=== PATIENT | male | born 1960 | race Caucasian/White ===

== ENCOUNTER 2019-09-26 09:31 | Emergency (ER) | payer BC, SELFPAY ==
[2019-09-26 09:35] VITALS: BP 163/103; PULSE 60; RESP 20; TEMP 36.6; O2SAT 97
[2019-09-26] MEDS: TETRACAINE HCL 0.5% OPHTH SOLN 4 ML BTL 1 DROP LEFT EYE (09:40)
--- NOTE | 2019-09-26 10:01 | ED.EYEPROB ---
HPI - Eye Problem General Chief complaint: Eye Problems Stated complaint: Scratch on left eye Source: patient Mode of arrival: ambulatory Limitations: no limitations History of Present Illness HPI Narrative: This 59-year-old male presents with a pain and burning in his left eye after his pet dog inadvertently scratched his left eye causing pain with some blurry vision and redness in the conjunctiva. chief complaint: eye pain, eye redness and eye injury Onset (ago): hour(s) Onset description: sudden Duration: constant Location: left eye Eye Symptoms: burning, redness and pain Place: home Mechanism: direct trauma (dog scratched his eye) Severity: mild If Pain, Quality: burning Related Data Home Medications Medication Instructions Recorded Confirmed amlodipine 10 mg PO DAILY 09/26/19 09/26/19 lisinopril 20 mg PO DAILY 09/26/19 09/26/19 metoprolol succinate 100 mg PO DAILY 09/26/19 09/26/19 potassium chloride 20 meq PO DAILY 09/26/19 09/26/19 Allergies Allergy/AdvReac Type Severity Reaction Status Date / Time No Known Allergies Allergy Verified 09/26/19 10:01 Review of Systems Review of Systems: All systems reviewed & are unremarkable except as noted in HPI and below PMFSH Past Medical History Medical History HLD (hyperlipidemia) HTN (hypertension) Exam Const: General: no acute distress Nutritional Appearance: well nourished Orientation/consciousness: patient oriented x3 HENMT: Head: normal to inspection Eyes: Conjunctivae: conjunctival abnormality ( injected and red) left Pupils: Equal, round and reactive pupils present Other: left corneal abrasion and scratch Neck: Neck: normal visual inspection and no lymphadenopathy Chest: Chest palpation & inspection: normal inspection of the chest and abnormal inspection of the chest Resp: Effort & Inspection: normal respiratory effort Cardio: Rate: regular rate Rhythm: regular rhythm GI: Auscultation: normal bowel sounds : Male General Exam: Yes normal external exam Back/Spine/Pelvis: Back: no CVA tenderness Skin: General skin exam: normal color Rashes: no rashes Neuro: General: patient oriented x3, moves all extremities and no meningeal signs Extrem: General: normal to inspection Psych: Appearance: grossly normal Mental Status: mental status grossly normal Thought content: Yes Normal thought content present Critical Care Time Critical Care Time Critical Care Time: No Discharge Plan Discharge Clinical Impression: Abrasion, corneal Qualifiers: Encounter type: initial encounter Laterality: left Qualified Code(s): S05.02XA - Injury of conjunctiva and corneal abrasion without foreign body, left eye, initial encounter Patient Disposition: Home, Self-Care Condition: Stable Instructions: Antibiotic Form, Corneal Abrasion (ED) Additional Instructions: follow-up with security sales manager within 1 week for further evaluation and treatment. Take medicine as prescribed. Prescriptions: New neomycin-polymyxin B-dexameth [Maxitrol] 3.5mg/mL-10,000 unit/mL-0.1 % drops,suspension 1 drop EACH EYE Q6H 7 Days Qty: 5 RF: 0 oxycodone-acetaminophen [Percocet] 5-325 mg tablet 1 tablet PO Q6H PRN (Reason: pain) Qty: 20 RF: 0 No Action lisinopril 20 mg tablet 20 mg PO DAILY RF: 0 metoprolol succinate 100 mg tablet extended release 24 hr 100 mg PO DAILY RF: 0 potassium chloride 20 mEq tablet,ER particles/crystals 20 meq PO DAILY RF: 0 amlodipine 10 mg tablet 10 mg PO DAILY RF: 0 Follow-up/Referrals: PHYSICIAN NOT ON STAFF,NONSTAFF [Primary Care Provider] - Time of Disposition: 10:07
[2019-09-26 10:11] VITALS: BP 150/96; PULSE 60; RESP 20; TEMP 36.6; O2SAT 97
[2019-09-26] MEDS: NEOMYCIN/POLYMYXIN/DEXAMETH OP SUSP 5 ML BTL 2 DROP LEFT EYE (10:17)
== END 2019-09-26 10:19 | disposition home or self-care (01) ==
PROVIDERS: Emergency Provider Emergency Medicine
DX: S05.02XA Injury of conjunctiva and corneal abrasion without foreign body, left eye, initial encounter (principal); X58.XXXA Exposure to other specified factors, initial encounter
CPT/HCPCS: 99283; A9270

== ENCOUNTER 2020-12-29 12:07 | Outpatient (CLI) | payer BC, SELFPAY ==
--- NOTE | ~2020-12-29 | US_ITS ---
EXAMINATION: US venous doppler [facility] DATE: 12/29/2020 12:43 INDICATION: Left leg pain and swelling TECHNIQUE: Jack scale images without and with compression and Doppler images of the left lower extrem ity veins were obtained. COMPARISON: None FINDINGS: The left common femoral vein, profunda femoral vein, femoral vein, popliteal vein, peroneal trunk, posterior tibial veins, and greater saphenous vein are patent. IMPRESSION: 1. Patent left lower extremity veins. No evidence of deep venous thrombosis. Reviewed, dictated and finalized at location A.
== END 2020-12-29 12:08 | disposition home or self-care (01) ==
LOC: CHSIMG 12:11
PROVIDERS: PCP Family Medicine; Visit Provider Family Medicine
DX: I74.9 Embolism and thrombosis of unspecified artery (principal)
CPT/HCPCS: 93971

== ENCOUNTER 2021-01-08 09:58 | Outpatient (RCR) | payer BC, SELFPAY ==
--- NOTE | 2021-01-08 12:25 | PTOPEVAL ---
Thank you for referring Franklyn Mccormack to [facility].? The patient is scheduled to be seen for therapy? ____x/week for ___ weeks. Please review, sign, date and return this plan of care JARAD. I agree with and certify that the following plan of care is medically necessary. Referring Physician Date Admitting Provider: Attending Provider: Isidoro Perez MD Referring Provider: *PT Outpatient Evaluation Start: 01/08/21 10:00 Freq: Status: Active Protocol: Document 01/08/21 10:00 ACR (Rec: 01/08/21 12:07 ACR [id number]) Therapy Assessment Status Assessment Status Assessment Status Evaluation Evaluation Information Problem Diagnosis L leg pain Onset 12/20/20 Subjective Information Patient states that he started Query Text:As Reported By Patient/ have leg pain about 2 and a Family half weeks ago. He has a physical job where he is lifting a lot and thinks that is a cause from it. 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 He went and got a doppler which was negative. He states the pain starts in the back of the knee and works its way down the leg to the foot which causes it to be numb. He states that the pain wakes him up and it gets to the point where he cannot put pressure through the leg. The patient states the most difficult activities are steps , getting in and out of the car, and a lot of his daily activities. 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
== END 2021-01-16 16:16 | disposition home or self-care (01) ==
LOC: CHSPT 09:58
PROVIDERS: PCP Family Medicine; Visit Provider Family Medicine
DX: M79.669 Pain in unspecified lower leg (principal)
CPT/HCPCS: 97014; 97110; 97140; 97161; G0283

== ENCOUNTER 2023-01-23 10:27 | Outpatient (CLI) | payer OTHER, BC, SELFPAY ==
--- NOTE | ~2023-01-23 | XR_ITS ---
Right Knee Technique: AP, lateral, and sunrise views were obtained. Clinical History: Pain Findings: No fracture or dislocation is seen. Osseous alignment is anatomic. There is minimal spurrin g at the patella and intercondylar notch. Soft tissues are unremarkable. No joint effusion is seen. Impression: Minimal degenerative spurring, as above. Reviewed, dictated and finalized at location M. Impression: Minimal degenerative spurring, as above.
== END 2023-01-23 10:28 | disposition home or self-care (01) ==
PROVIDERS: PCP Family Medicine; Visit Provider Family Medicine
DX: M76.891 Other specified enthesopathies of right lower limb, excluding foot (principal)
CPT/HCPCS: 73562

== ENCOUNTER 2023-02-08 09:00 | Outpatient (CLI) | payer OTHER, BC, SELFPAY ==
--- NOTE | ~2023-02-08 | MR_ITS ---
MRI of the right knee Clinical history: Meniscus tear Technique: Coronal proton density and proton density-weighted images, sagittal proton-density and T2 fat-sat images, and axial proton-density fat-saturated images were acquired. Findings: Anterior and posterior cruciate ligaments are intact. Medial collateral ligament and the la teral collateral ligament complex are intact. Popliteus tendon is intact. There is horizontal tear predominantly involving the body segment of the medial meniscus, extending i nto the posterior horn. No definite lateral meniscal tear seen. There is high-grade chondromalacia at the medial joint line with subchondral reactive marrow edema. A rticular cartilage in the lateral compartment is relatively well-preserved. There is extensive high-g rade chondromalacia of the patellofemoral compartment. Small tricompartmental osteophytes are present . Extensor mechanism is intact. Small joint effusion is present. No Luna's cyst. Impression: Horizontal tear of the posterior horn and body of medial meniscus. Mild to moderate tricompartmental osteoarthritis. Small joint effusion. Reviewed, dictated and finalized at [facility]. Impression: Horizontal tear of the posterior horn and body of medial meniscus. Mild to moderate tricompartmental osteoarthritis. Small joint effusion.
== END 2023-02-08 09:01 | disposition home or self-care (01) ==
LOC: CHSIMG 09:01
PROVIDERS: PCP Family Medicine; Visit Provider Family Medicine
DX: S83.241A Other tear of medial meniscus, current injury, right knee, initial encounter (principal); M17.11 Unilateral primary osteoarthritis, right knee; M25.461 Effusion, right knee
CPT/HCPCS: 73721

== ENCOUNTER 2023-06-02 10:48 | Outpatient (CLI) | payer OTHER, SELFPAY ==
[2023-06-02 11:14] LABS: Basophils Absolute Auto 0.06 K/mm3 (0.00-0.10); Basophils Percent Auto 0.7 % (0.0-1.0); Eosinophils Percent Auto 2.3 % (1.0-6.0); Hematocrit 43.6 % (37.0-46.0); Hemoglobin 15.1 g/dL (12.4-15.3); Immature Granulocyte Percent A 1.2 % (0.0-0.0); Lymphocytes Absolute Auto 2.53 K/mm3 (1.10-4.50); Lymphocytes Percent Auto 29.5 % (18.0-42.0); Mean Corpuscular HGB Conc 34.6 g/dL (32.0-36.0); Mean Corpuscular Hemoglobin 30.2 pg (27.0-31.0); Mean Corpuscular Volume 87.2 fL (78.0-102.0); Mean Platelet Volume 10.1 fl (8.7-11.0); Monocytes Absolute Auto 0.85 K/mm3 (0.10-0.90); Monocytes Percent Auto 9.9 % (2.0-11.0); Neutrophils Absolute Auto 4.8 K/mm3 (1.7-7.2); Neutrophils Percent Auto 56.4 % (50.0-70.0); Platelet Count Result 163 K/mm3 (150-420); Red Cell Distribution Width 12.8 % (11.6-14.4); White Blood Count 8.6 K/mm3 (4.8-10.8)
[2023-06-02 12:30] LABS: Alanine Aminotransferase 42 U/L (16-63); Albumin Level 3.7 g/dL (3.4-5.0); Alkaline Phosphatase 108 U/L (46-116); Anion Gap 12 mmol/L (8-16); Aspartate Amino Transferase 20 U/L (15-37); Bilirubin,Total 0.7 mg/dL (0.00-1.00); Blood Urea Nitrogen 20 mg/dL (7-18); Calcium 9.2 mg/dL (8.5-10.1); Carbon Dioxide 27 mmol/L (21-32); Chloride 104 mmol/L (98-108); Cholesterol 184 mg/dL (0-200); Estimated Glomerular Filt Rate > 60; Folic Acid 13.3 ng/mL (8.6->20); Glucose 135 mg/dL (70-99); HDL Direct 47 mg/dL (40-60); LDL Cholesterol Calculated 109 mg/dL (<130); Osmolality Calculated 300 mOsm/kg (285-295); Potassium 3.1 mmol/L (3.5-5.1); Sodium 143 mmol/L (136-145); Total Protein 7.4 g/dL (6.4-8.2); Triglycerides 140 mg/dL (0-150); Vitamin B12 338 pg/mL (193-986)
[2023-06-02 12:48] LABS: Thyroid Stimulating Hormone Reflex 2.96 u/IU/mL (0.36-3.74)
== END 2023-06-02 10:49 | disposition home or self-care (01) ==
LOC: CHSLAB 10:54
PROVIDERS: PCP Family Medicine; Visit Provider Family Medicine
DX: E78.5 Hyperlipidemia, unspecified (principal); E11.9 Type 2 diabetes mellitus without complications; E53.8 Deficiency of other specified B group vitamins; I10 Essential (primary) hypertension
CPT/HCPCS: 36415; 80053; 80061; 82607; 82746; 83036; 84443; 85025

== ENCOUNTER 2023-06-04 12:59 | Outpatient (CLI) | payer OTHER, MEDICARE, SELFPAY ==
--- NOTE | 2023-06-04 13:09 | ECG_ITS ---
Measurements Intervals [place] Rate: 74 P: 65 VA: 194 QRS: 64 QRSD: 163 T: 23 QT: 386 QTc: 431 Interpretive Statements SINUS RHYTHM RIGHT BUNDLE BRANCH BLOCK BASELINE WANDER- II, III, AVF ABNORMAL ECG NO PREVIOUS ECG AVAILABLE FOR COMPARISON Electronically Signed On 06-04-2023 14:03:26 BIODIESEL ENGINE SPECIALIST by Pk Ignacio D.O.
== END 2023-06-04 13:00 | disposition home or self-care (01) ==
LOC: CHSLAB 13:05
PROVIDERS: PCP Family Medicine; Visit Provider Anesthesiology
DX: Z01.818 Encounter for other preprocedural examination (principal); I10 Essential (primary) hypertension; I45.10 Unspecified right bundle-branch block; R94.31 Abnormal electrocardiogram [ECG] [EKG]
CPT/HCPCS: 93005

== ENCOUNTER 2023-06-19 02:06 | Day surgery (SDC) | payer OTHER, SELFPAY ==
[2023-06-02 14:57] VITALS: BMI 30.2
--- NOTE | 2023-06-02 15:06 | PC.NURSE ---
Addendum entered by Emilie Locke RN 06/11/23 14:16: PT TO ARRIVE AT 0800 ON 06/19/23 FOR SURGERY AT 1000. Original Note: Report to the Outpatient Waiting Room, entrance under the green pavilion located off [facility], at time 0830 on date 06/05/23. Planned Procedure Time: 1030. Time changes happen often and if your time is changed the preop area will call you the afternoon before. - You and your visitor will be asked to self-screen and do not enter if you have any COVID symptoms. - A mask is optional within the hospital at this time. Patients may have clear liquids (water, carbonated beverages, clear teas, apple juice) until 3 hours prior to surgery with a maximum of 20 ounces. - No food from midnight until time of surgery Take the following medications with a SIP of water the morning of surgery: AMLODIPINE, METOPROLOL, SERTRALINE DO NOT STOP ANY OF YOUR OTHER PRESCRIPTION MEDICATIONS PRIOR TO SURGERY ?EXCEPT THE FOLLOWING Medications to discontinue per physician: N/A Date to take last dose: N/A Please no make-up, nail tajik, hairspray, perfume, deodorant, or body powder the day of surgery. No jewelry (including any body piercings) or valuables the day of surgery, leave them at home. Please take a shower or bath the night before, or the morning of, surgery with an antibacterial soap. Wear comfortable, loose fitting clothing. - Jewelry must be removed prior to entering the operating room. Rings and piercings that are not removed may be cut off. - The hospital will not accept responsibility for valuables. - Please leave all valuables, including medications, at home the day of surgery. If you are going home after surgery, a licensed regional otr company driver must drive you home. - NO public transportation without another adult if you receive anesthesia. - We recommend that an adult stay with you for 24 hours following discharge. - We also recommend that you do not drive, make important decision, drink alcoholic beverages, or take any drugs that were not prescribed by your health care provider for at least 24 hours after your discharge time. Follow any additional instructions given to you from your surgeon. If you or anyone in your household have experienced Covid symptoms in the past week, please notify your surgeon or the nurse liaison at the phone number below for possible testing. Telephone instructions given to PT - MICAH NOBLE and asked if any additional questions and then verbalized understanding. Patient advised to call surgeon office or pre surgery nurse liaison [phone] if any additional questions.
--- NOTE | 2023-06-03 12:27 | PM.IMHP ---
H&P: HPI History of Present Illness Date/Time: 06/03/23 12:27 Chief Complaint: Medial meniscal tear right knee. Narrative: Patient has catching locking and pain over the medial joint line, symptoms suggesting room meniscal tearing. He has a positive MRI scan like to proceed with arthroscopic intervention. Review of Systems Musculoskeletal: Musculoskeletal: Reports arthralgias and Reports joint swelling PMFSH Past Medical History Medical History HLD (hyperlipidemia) HTN (hypertension) Surgical History Surgical History History of cholecystectomy Family History Family History Father Leukemia Mother Neuropathy Hypotension Social History Social History (Updated 03/10/23 @ 09:22 by Fatmata Odell CMA) Smoking status: Never smoker Alcohol intake: current Alcohol use details: 3/MONTH Substance use: never Substance use type: does not use Lack of Transportation: No Lack of Food: Never True Current Housing: Decline to Answer Concerned About Future Housing: Decline to Answer Difficulty Paying Gas/Electric Bills: YES Difficulty Paying for Meds: No Currently Unemployed: No Education: High School Diploma/GED Difficulty w/ Childcare or Family Care: No Living arrangements: alone Occupation/Education: occupation Additional occupation/education comments: [employer]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 Gender identity (if verbalized by the patient): Male Spiritual care concerns: No Meds Home Medications and Allergies Home Medications Medication Instructions Recorded Confirmed Type amlodipine 10 mg tablet 10 mg PO DAILY #30 tabs 03/11/23 06/02/23 Rx lisinopril 20 mg tablet 10 mg PO DAILY #30 tabs 03/11/23 06/02/23 Rx metoprolol succinate 100 mg See Rx Instructions .Route 05/20/23 06/02/23 Rx tablet,extended release 24 hr .COMPLEX #90 tabs sertraline 50 mg tablet 50 mg PO DAILY #90 tabs 06/02/23 06/02/23 Rx Allergies Allergy/AdvReac Type Severity Reaction Status Date / Time No Known Allergies Allergy Verified 06/02/23 14:57 Exam Narrative: On exam he has got a positive Bret's test he is tender over the joint line has pain to palpation manipulation. Neurologically he is grossly intact. He has mechanical catching. He walks with a mildly antalgic gait. Const: General: no acute distress Eyes: General: appearance normal, both eyes and all related structures Neck: Neck: supple Resp: Effort & Inspection: normal respiratory effort Cardio: Rate: regular rate Rhythm: regular rhythm Radiology Reports: Comments: Patient: Franklyn Mccormack : 1960 MR#: [id number] Age/Sex: 62 / M Loc: [facility]? ? ADM Date: 02/08/23Attending Dr: Don Jones D.O. Ordering Physician: Don Jones DO Date of Service: 02/08/23 Procedure(s): MR knee RT wo con Accession Number(s): [id number] cc: Don Jones DO~ MRI of the right knee Clinical history: Meniscus tear Technique: Coronal proton density and proton density-weighted images, sagittal proton-density and T2 fat-sat images, and axial proton-density fat-saturated images were acquired. Findings: Anterior and posterior cruciate ligaments are intact. Medial collateral ligament and the lateral collateral ligament complex are intact. Popliteus tendon is intact. There is horizontal tear predominantly involving the body segment of the medial meniscus, extending into the posterior horn. No definite lateral meniscal tear seen. There is high-grade chondromalacia at the medial joint line with subchondral reactive marrow edema. Articular cartilage in the lateral compartment is relatively well-preserved. There is extensive high-grade chondromalacia of the patellofemoral compartment. Small tricompartmental os
--- NOTE | 2023-06-18 13:58 | P.PNAN_ITS ---
Anes - Initial Pre Proc Eval Procedure: Operation Date: 06/19/23 07:30 Proposed Procedures p Right Knee Arthroscopy with Partial Meniscectomy - Jaspal Singh MD Date/Time: 06/18/23 13:58 Surgeon: Jaspal Singh MD Pre Op Diagnosis: right knee medial meniscal tear Patient Data Age: 63 Gender: M Height: 1.75 m Weight: 93 kg Allergies Allergy/AdvReac Type Severity Reaction Status Date / Time No Known Allergies Allergy Verified 06/19/23 06:05 Home Medications Medication Instructions Recorded Confirmed Type amlodipine 10 mg tablet 10 mg PO DAILY #30 tabs 03/11/23 06/11/23 Rx lisinopril 20 mg tablet 10 mg PO DAILY #30 tabs 03/11/23 06/11/23 Rx metoprolol succinate 100 mg See Rx Instructions .Route 05/20/23 06/11/23 Rx tablet,extended release 24 hr .COMPLEX #90 tabs Patient hx anesthesia problems: none Family hx anesthesia problems: none Results Review: All pre-operative results and documents have been reviewed as part of the pre- operative evaluation. [facility] Past Medical History Medical History (Updated 06/18/23 @ 13:59 by Jose Garrett DO) ESTHER (generalized anxiety disorder) HLD (hyperlipidemia) HTN (hypertension) Right bundle branch block (RBBB) Surgical History Surgical History History of cholecystectomy Family History Family History Father Leukemia Mother Neuropathy Hypotension Social History Social History (Updated 03/10/23 @ 09:22 by Fatmata Odell CMA) Smoking status: Never smoker Alcohol intake: current Alcohol use details: 3/MONTH Substance use: never Substance use type: does not use Lack of Transportation: No Lack of Food: Never True Current Housing: Decline to Answer Concerned About Future Housing: Decline to Answer Difficulty Paying Gas/Electric Bills: YES Difficulty Paying for Meds: No Currently Unemployed: No Education: High School Diploma/GED Difficulty w/ Childcare or Family Care: No Living arrangements: alone Occupation/Education: occupation Additional occupation/education comments: [employer]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 Informed Consent: The patient's anesthetic plan and its attendant risks and benefits were discussed with the patient/family/POA. Questions were solicited and answers provided to the satisfaction of the patient/family/POA.
[2023-06-19] VITALS (9 sets, daily range): BP systolic 93–169; BP diastolic 59–107; PULSE 48–79; RESP 13–18; TEMP 36.8–37; O2SAT 94–98
[2023-06-19] MEDS: ACETAMINOPHEN 500 MG TABLET 1000 MG PO (06:08)
[2023-06-19] MEDS: LACTATED RINGERS 1,000 ML 30 ML IV CONT ×2 (06:51→08:21)
[2023-06-19] MEDS: KETOROLAC 15 MG/ML VIAL (*BKC) IV PUSH (06:53)
--- NOTE | 2023-06-19 07:13 | WPDHPUPDATE1 ---
History and Physical Update Update Date/Time: 06/19/23 07:13 History and Physical has been reviewed, including an updated exam of the patient. There are NO changes in the patient's condition. Risks, benefits, and alternatives have been discussed and questions answered. Patient agrees to proceed with procedure.
[2023-06-19] MEDS: ceFAZolin 2 GM/D5W 50 ML 2 GM/50 ML BAG IVPB (07:27)
[2023-06-19] MEDS: LIDO 1%/EPINEPHRINE 1:100,000 50 ML VIAL 30 ML INFILTRATE (07:50)
--- NOTE | 2023-06-19 08:11 | W.PM.PROC2 ---
Procedure Note - Detailed Date of Procedure 06/19/23 Pre-op Diagnosis RIGHT knee medial meniscal tear Post-op Diagnosis Same Procedure Performed RIGHT knee arthroscopy with partial meniscetomy Surgeon Jaspal Singh MD Anesthesia General Indications Pain and catching Description of Procedure Patient brought to operating room # 8. An anesthetic was administered. The knee was steriley prepped and draped in the usual manner. Standard portals were used. Superior medial portal was used for the outflow cannula, inferior lateral portal was used for the scope, inferior medial portal was used for the instruments. Arthroscopy was performed, the patellar femoral joint degenerative changes. The medial compartment showed a complex tear. Grade 3 changes noted in the medial compartment. The lateral compartment showed fraying. The ACL was intact. Using baskets and nader the meniscal tear was trimmed back to a stable base so the nothing further could be pulled into the joint. Any loose or delaminated fragments were gently trimmed to a stable base. At this point the instruments were withdrawn, sutures placed and patient left the operating room in satisfactory condition. Estimated Blood Loss 10 Drains No Packing No Pathology None sent Complications No immediate complications Condition Stable Disposition PACU [facility] Billing Surgery - Charge Forward: Surgery Billing ([id number] Arthroscopy and partial menisectomy)
[2023-06-19] MEDS: oxyCODONE HCL (*CRX) 5 MG TAB IR PO (09:58)
== END 2023-06-19 10:27 | disposition home or self-care (01) ==
PROVIDERS: PCP Family Medicine; Visit Provider Orthopaedic Surgery
PROC: (CPT 29870; principal; 2023-06-19 07:30)
DX: S83.231A Complex tear of medial meniscus, current injury, right knee, initial encounter (principal); X58.XXXA Exposure to other specified factors, initial encounter; M17.11 Unilateral primary osteoarthritis, right knee; I10 Essential (primary) hypertension; E78.5 Hyperlipidemia, unspecified; E66.9 Obesity, unspecified; Z68.30 Body mass index [BMI] 30.0-30.9, adult
CPT/HCPCS: 29881; A9270; J0690; J1100; J1170; J1885; J2250; J2371; J2405; J2704; J3010; J7120

== ENCOUNTER 2023-07-10 14:30 | Outpatient (RCR) | payer OTHER, SELFPAY ==
--- NOTE | 2023-07-10 15:41 | OPREHPOC ---
Outpatient Therapy Plan of Care This is a Multidisciplinary Plan of Care that may contain components documented by all disciplines (PT, OT, and ST.) PT Problem 1 PT Problem #1 Knowledge Deficit PT Goal 1 Goal The patient will independent in a home exercise program. Target Visit 4 PT Problem 2 PT Problem #2 Pain PT Goal 1 Goal The patient will report no greater than 5/10 right knee pain with ambulation. Target Visit 6 PT Goal 2 Goal The patient will report no greater than 2/10 right knee pain with all daily activities. Target Visit 24 PT Problem 3 PT Problem #3 Impaired Range of Motion PT Goal 1 Goal The patient will demonstrate right knee AROM of 0- 120 degrees to improve gait. Target Visit 6 PT Problem 4 PT Problem #4 Impaired Gait PT Goal 1 Goal The patient will ambulate 1,000 feet with a non- antalgic gait pattern and no AD. Target Visit 12 PT Problem 5 PT Problem #5 Impaired Functional Mobil PT Goal 1 Goal The patient will have 25% or less self perceived disability per the LEFS. The patient will lift 30# from floor to waist to return previous job capabilities. Target Visit 24
--- NOTE | 2023-07-10 15:41 | PTOPEVAL1 ---
Assessment and note entered by Dana Maher, PT Evaluation Information Assessment Status Evaluation Diagnosis s/p R knee arthroscopy Onset 06/19/23 Subjective Information Franklyn Mccormack reports he had right knee surgery on 06/19/23. He had a meniscus tear and it was trimmed. He used crutches for a couple weeks after surgery but was weight bearing as tolerated. He injured his knee while working on 12/09/22. He was carrying equipment up stairs and when he got to the top of the stairs he could not put weight on it. He c/o swelling and warmth around the knee. He notes increased pain when he stands up from sitting, with walking, and bending the knee. He has increased stiffness in the knee in the morning after being in bed all night. He is using advil for pain relief and he is using ice and elevation for swelling. He works for [employer] and has been off work since 02/18/23. 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 He has a neoprene knee brace he wears when he leaves the house. He was not instructed by his surgeon to wear it. Reported Pain Level Pain Score 8: Self Report Assessment PT Clinical Summary Franklyn Mccormack presents 3 weeks s/p right knee arthroscopy for a menisectomy. He injured the knee while working on 12/10/23. He is reporting pain, swelling, and warmth in the right knee that is worse with bending his right knee, standing up from sitting, and walking. He is currently not working for [employer] and has been off work since 02/18/23. He objectively demonstrates right knee edema, decreased right knee AROM, decreased right knee and hip strength, impaired gait, and impaired balance. He will benefit from skilled PT to address these limitations. Plan of Care Interventions Electrical Stimulation,Hot Pack/Cold Pack, Intermittent Compression,Manual Therapy,Neuro Re- education,Patient/Caregiver Educati,Therapeutic Activities,Therapeutic Exercise PT Services Indicated Yes Treatment Frequency and 3 times a week for 12 visits Duration These treatments will address the objective and functional deficits as defined above. The patient will be advanced safely and appropriately in order for the patient to progress towards his/her prior level of function. Additional exercises will be introduced and as well as a comprehensive home exercise program upon discharge, if needed, ?to ensure carryover of functional gains achieved in the clinic. This
--- NOTE | 2023-07-29 14:40 | OPREHPOC ---
Outpatient Therapy Plan of Care This is a Multidisciplinary Plan of Care that may contain components documented by all disciplines (PT, OT, and ST.) PT Problem 1 PT Problem #1 Knowledge Deficit PT Goal 1 Goal The patient will independent in a home exercise program. Target Visit 24 Progress Not Met Comment continue PT Problem 2 PT Problem #2 Pain PT Goal 1 Goal The patient will report no greater than 5/10 right knee pain with ambulation. Target Visit 18 Progress Not Met Comment continue PT Goal 2 Goal The patient will report no greater than 2/10 right knee pain with all daily activities. Target Visit 24 Progress Not Met Comment continue PT Problem 3 PT Problem #3 Impaired Range of Motion PT Goal 1 Goal The patient will demonstrate right knee AROM of 0- 120 degrees to improve gait. Target Visit 18 Progress Not Met Comment Continue PT Problem 4 PT Problem #4 Impaired Gait PT Goal 1 Goal The patient will ambulate 1,000 feet with a non- antalgic gait pattern and no AD. Target Visit 24 Progress Not Met Comment continue PT Problem 5 PT Problem #5 Impaired Functional Mobil PT Goal 1 Goal The patient will have 25% or less self perceived disability per the LEFS. -not met The patient will lift 30# from floor to waist to return previous job capabilities. -not met Target Visit 24 Progress Not Met Comment continue
--- NOTE | 2023-07-29 14:41 | PTOPPROG ---
Assessment and note entered by Dana Maher, PT Evaluation Information Assessment Status Progress Diagnosis s/p R knee arthroscopy Onset 06/19/23 Subjective Information Franklyn Mccormack reports that his R knee is still very painful. He notes pain along the inner side of the knee that is stabbing and pain above the kneecap as well. He c/o throbbing around the right knee and pain is waking him at night. He continues to have difficulty with walking and stairs. He is using 500 mg Tylenol for pain control because he can not take pain medication with Vicodin. Assessment PT Clinical Summary Franklyn Mccormack has completed 9 skilled PT visits following a right knee arthroscopy performed on . He is reporting continued throbbing and sharp pains in the right knee that wake him at night and make walking difficult. He objectively demonstrates improved right knee passive and active ROM. He continues to demonstrate right knee edema, impaired gait, decreased right knee AROM, and decreased right knee/hip strength. He will continue to benefit from skilled PT to further address ongoing limitations. Plan of Care Interventions Hot Pack/Cold Pack,Intermittent Compression, Patient/Caregiver Educati,Therapeutic Activities, Therapeutic Exercise PT Services Indicated Yes Treatment Frequency and 3 times a week for 12 visits Duration These treatments will address the objective and functional deficits as defined above. The patient will be advanced safely and appropriately in order for the patient to progress towards his/her prior level of function. Additional exercises will be introduced and as well as a comprehensive home exercise program upon discharge, if needed, ?to ensure carryover of functional gains achieved in the clinic. This treatment plan has been reviewed and agreement upon by the patient.
--- NOTE | 2023-08-19 11:21 | OPREHPOC ---
Outpatient Therapy Plan of Care This is a Multidisciplinary Plan of Care that may contain components documented by all disciplines (PT, OT, and ST.) PT Problem 1 PT Problem #1 Knowledge Deficit PT Goal 1 Goal The patient will independent in a home exercise program. Target Visit 24 Progress Met Comment . PT Problem 2 PT Problem #2 Pain PT Goal 1 Goal The patient will report no greater than 5/10 right knee pain with ambulation. Target Visit 24 Progress Not Met Comment continue PT Goal 2 Goal The patient will report no greater than 2/10 right knee pain with all daily activities. Target Visit 24 Progress Not Met Comment continue PT Problem 3 PT Problem #3 Impaired Range of Motion PT Goal 1 Goal The patient will demonstrate right knee AROM of 0- 120 degrees to improve gait. Target Visit 24 Progress Not Met Comment Continue PT Problem 4 PT Problem #4 Impaired Gait PT Goal 1 Goal The patient will ambulate 1,000 feet with a non- antalgic gait pattern and no AD. Target Visit 24 Progress Not Met Comment continue PT Problem 5 PT Problem #5 Impaired Functional Mobil PT Goal 1 Goal The patient will have 25% or less self perceived disability per the LEFS. The patient will lift 30# from floor to waist to return previous job capabilities. Target Visit 24 Progress Not Met Comment continue
--- NOTE | 2023-08-19 11:22 | PTOPPROG ---
Assessment and note entered by JT File, PT Evaluation Information Assessment Status Progress Diagnosis s/p R knee arthroscopy Onset 06/19/23 Subjective Information patient reports prior to surgery her was unable to stand on the R LE. since surgery he has been able to stand and walk, and reports it has gotten a bit better. however, he reports the pain is still fairly high and is located to the inside of the R knee. he reports he had an injection 2 weeks ago. he reports he felt great after this injection, but the pain is already back. he reports his pain is increased with standing activities and walking. 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 he continues to have significant pain in the R knee, and poor ambulation mechanics. he has improved in R knee rom and strength, but still lacks achievement of goals for both. he is progressing, but is unable to perform normal ambulation or prior work related duties. patient would benefit from continued skilled PT to address his continued objective/functional deficits to be able to return to prior level work performance and quality of life. Plan of Care Interventions Gait Training,Hot Pack/Cold Pack,Intermittent Compression,Manual Therapy,Neuro Re-education, Patient/Caregiver Educati,Therapeutic Activities, Therapeutic Exercise PT Services Indicated Yes Treatment Frequency and continue skilled PT 3x weekly for 6 more visits Duration from today (24 total) These treatments will address the objective and functional deficits as defined above. The patient will be advanced safely and appropriately in order for the patient to progress towards his/her prior level of function. Additional exercises will be introduced and as well as a comprehensive home exercise program upon discharge, if needed, ?to ensure carryover of functional gains achieved in the clinic. This treatment plan has been reviewed and agreement upon by the patient.
--- NOTE | 2023-09-01 10:20 | PCPTNOTE ---
pt cancelled. no reason given
--- NOTE | 2023-09-02 14:07 | PCPTNOTE ---
pt cancelled. no reason given
--- NOTE | 2023-09-09 13:35 | OPREHPOC ---
Outpatient Therapy Plan of Care This is a Multidisciplinary Plan of Care that may contain components documented by all disciplines (PT, OT, and ST.) PT Problem 1 PT Problem #1 Knowledge Deficit PT Goal 1 Goal The patient will independent in a home exercise program. Target Visit 36 Progress Met Comment . PT Problem 2 PT Problem #2 Pain PT Goal 1 Goal The patient will report no greater than 5/10 right knee pain with ambulation. Target Visit 36 Progress Not Met Comment continue PT Goal 2 Goal The patient will report no greater than 2/10 right knee pain with all daily activities. Target Visit 36 Progress Not Met Comment continue PT Problem 3 PT Problem #3 Impaired Range of Motion PT Goal 1 Goal The patient will demonstrate right knee AROM of 0- 120 degrees to improve gait. Target Visit 36 Progress Not Met Comment met for flexion PT Problem 4 PT Problem #4 Impaired Gait PT Goal 1 Goal The patient will ambulate 1,000 feet with a non- antalgic gait pattern and no AD. Target Visit 36 Progress Not Met Comment continue PT Problem 5 PT Problem #5 Impaired Functional Mobil PT Goal 1 Goal The patient will have 25% or less self perceived disability per the LEFS. The patient will lift 30# from floor to waist to return previous job capabilities. Target Visit 36 Progress Not Met Comment continue
--- NOTE | 2023-09-09 13:35 | PTOPREEVAL ---
Assessment and note entered by Swati Nguyen DPT Evaluation Information Assessment Status Progress - Pt Not Present Diagnosis s/p R knee arthroscopy Onset 06/19/23 Subjective Information patient reports that he has been having increased swelling and hip pain. he continues to be limited in his activity in PT due to pain and increased blood pressure. patient reports that his doctor is aware of his elevated BP and he is taking medication. 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 he continues to have significant pain in the R knee, and poor ambulation mechanics. he continues to have hip and increased swelling as well as elevated BP that is limiting progression of treatment. Closed kinetic chain activities have been limited due to pain and blood pressure. he is progressing, but is unable to perform normal ambulation or prior work related duties. patient would benefit from continued skilled PT to address his continued objective/functional deficits to be able to return to prior level work performance and quality of life. Plan of Care Interventions Gait Training,Hot Pack/Cold Pack,Intermittent Compression,Manual Therapy,Neuro Re-education, Patient/Caregiver Educati,Therapeutic Activities, Therapeutic Exercise PT Services Indicated Yes Treatment Frequency and continue skilled PT 3x weekly for 12 more visits Duration from today (36 total) These treatments will address the objective and functional deficits as defined above. The patient will be advanced safely and appropriately in order for the patient to progress towards his/her prior level of function. Additional exercises will be introduced and as well as a comprehensive home exercise program upon discharge, if needed, ?to ensure carryover of functional gains achieved in the clinic. This treatment plan has been reviewed and agreement upon by the patient.
--- NOTE | 2023-09-11 09:46 | PCPTNOTE ---
09/11/23: Pt was cancelled by the ordering physician. -Dana Maher, PT
== END 2023-09-09 20:00 | disposition home or self-care (01) ==
LOC: CHSPT 14:30
PROVIDERS: PCP Family Medicine; Visit Provider Orthopaedic Surgery
DX: Z98.890 Other specified postprocedural states (principal)
CPT/HCPCS: 97016; 97110; 97161; 97530

== ENCOUNTER 2023-11-14 10:39 | Outpatient (CLI) | payer OTHER, SELFPAY ==
--- NOTE | 2023-11-14 10:59 | ECG_ITS ---
Test Date: 2023-11-14 11:05:59 Measurements Intervals [place] Rate: 68 P: 27 LA: 142 QRS: -17 QRSD: 167 T: -4 QT: 427 QTc: 457 Interpretive Statements SINUS RHYTHM RIGHT BUNDLE BRANCH BLOCK [120+ ms QRS DURATION, UPRIGHT V1, 40+ ms S IN I/aVL/V4/V5/V6] VOLTAGE CRITERIA FOR LVH [MEETS CRITERIA IN ONE OF: R(aVL), S(V1), R(V5), R(V5/V6)+S(V1)] ABNORMAL ELECTROCARDIOGRAM No previous ECG available for comparison Electronically Signed On 11-14-2023 15:31:04 CDT by Monty Mccormick M.D.
[2023-11-14 11:00] LABS: Basophils Absolute Auto 0.05 K/mm3 (0.00-0.10); Basophils Percent Auto 0.6 % (0.0-1.0); Eosinophils Absolute Auto 0.15 K/mm3 (0.02-0.50); Eosinophils Percent Auto 1.8 % (1.0-6.0); Hematocrit 44.1 % (37.0-46.0); Hemoglobin 15.8 g/dL (12.4-15.3); Immature Granulocyte Absolute 0.09 K/mm3 (0.00-0.00); Immature Granulocyte Percent A 1.1 % (0.0-0.0); Lymphocytes Absolute Auto 2.06 K/mm3 (1.10-4.50); Lymphocytes Percent Auto 24.1 % (18.0-42.0); Mean Corpuscular HGB Conc 35.8 g/dL (32-36); Mean Corpuscular Hemoglobin 30.7 pg (27.0-31.0); Mean Corpuscular Volume 85.6 fL (78.0-102.0); Monocytes Absolute Auto 0.65 K/mm3 (0.10-0.90); Monocytes Percent Auto 7.6 % (2.0-11.0); Neutrophils Absolute Auto 5.56 K/mm3 (1.70-7.20); Neutrophils Percent Auto 64.8 % (50.0-70.0); Platelet Count Result 172 K/mm3 (150-420); Red Blood Count 5.15 M/mm3 (4.70-6.10); Red Cell Distribution Width 13.1 % (11.6-14.4); White Blood Count 8.6 K/mm3 (4.8-10.8)
[2023-11-14 11:02] LABS: Appearance Urine Clear (Clear); Bilirubin Urine Negative (Negative); Blood Urine 2+ (Negative); Color Urine Yellow (Yellow); Glucose Urine UA Negative (Negative); Ketones Urine Negative (Negative); Leukocyte Esterase Ur Negative (Negative); Nitrate Urine Negative (Negative); Protein Urine 2+ (Negative); Specific Grav Ur >= 1.030 (1.010-1.020); Urobilinogen Urine 0.2 mg/dL (0.2-1.0); pH Urine 5.5 (5.0-8.0)
[2023-11-14 11:07] LABS: Add Urine Microscopic? YES; Bacteria Urine Rare /hpf; Mucus Urine Moderate /lpf; WBC Urine 0-3 /hpf (0-3)
[2023-11-14 11:40] LABS: Alanine Aminotransferase 35 U/L (16-63); Albumin Level 3.6 g/dL (3.4-5.0); Alkaline Phosphatase 109 U/L (46-116); Anion Gap 10 mmol/L (4-12); Aspartate Amino Transferase 23 U/L (15-37); Bilirubin,Total 0.9 mg/dL (0.00-1.00); Blood Urea Nitrogen 17 mg/dL (7-18); Calcium 8.8 mg/dL (8.5-10.1); Carbon Dioxide 27 mmol/L (21-32); Chloride 103 mmol/L (98-108); Estimated Glomerular Filt Rate > 60; Glucose 121 mg/dL (70-99); Osmolality Calculated 292 mOsm/kg (285-295); Prostate Specific Antigen 1.2 ng/mL (< OR = 4.0); Sodium 140 mmol/L (136-145); Total Protein 7.6 g/dL (6.4-8.2)
[2023-11-14 11:43] LABS: Thyroid Stimulating Hormone Reflex 1.27 u/IU/mL (0.36-3.74)
== END 2023-11-14 10:40 | disposition home or self-care (01) ==
LOC: CHSLAB 10:41
PROVIDERS: PCP Family Medicine; Visit Provider Family Medicine
DX: R35.1 Nocturia (principal); E03.9 Hypothyroidism, unspecified; I10 Essential (primary) hypertension; I45.10 Unspecified right bundle-branch block; R94.31 Abnormal electrocardiogram [ECG] [EKG]
CPT/HCPCS: 36415; 80053; 81001; 84153; 84443; 85025; 93005; G0103

== ENCOUNTER 2023-11-25 09:55 | Outpatient (CLI) | payer OTHER, SELFPAY ==
[2023-11-25 12:53] LABS: Hemoglobin A1C 5.1 % (<5.7)
[2023-11-25 12:56] LABS: Urine Cotinine NEGATIVE
== END 2023-11-25 09:56 | disposition home or self-care (01) ==
LOC: ANHSURGERY 09:59
PROVIDERS: PCP Family Medicine; Visit Provider Orthopaedic Surgery
DX: M17.11 Unilateral primary osteoarthritis, right knee (principal); Z01.818 Encounter for other preprocedural examination
CPT/HCPCS: 80307; 83036; 86850; 86900; 86901

== ENCOUNTER 2023-12-08 00:33 | Day surgery (SDC) | payer OTHER, SELFPAY ==
[2023-11-25 10:13] VITALS: BP 143/86; PULSE 71; RESP 16; TEMP 36.5; O2SAT 97; BMI 31.0
--- NOTE | 2023-11-25 10:34 | PC.NURSE ---
Report to the Outpatient Waiting Room, entrance under the green pavilion located off [facility], at time __6:00AM on date ___12/08/23____. Planned Procedure Time: __7:30AM . Time changes happen often and if your time is changed the preop area will call you the afternoon before. - You and your visitor will be asked to self-screen and do not enter if you have any COVID symptoms. - A mask is optional within the hospital at this time. Patients may have clear liquids (water, carbonated beverages, clear teas, apple juice) until 3 hours prior to surgery with a maximum of 20 ounces. - No food from midnight until time of surgery. Take the following medications with a SIP of water the morning of surgery: ___AMLODIPINE & METOPROLOL DO NOT STOP ANY OF YOUR OTHER PRESCRIPTION MEDICATIONS PRIOR TO SURGERY ?EXCEPT THE FOLLOWING Medications to discontinue per physician ___NONE Date to take last dose Please no make-up, nail armenian, hairspray, perfume, deodorant, or body powder the day of surgery. No jewelry (including any body piercings) or valuables the day of surgery, leave them at home. Please take a shower or bath the night before, or the morning of, surgery with an antibacterial soap. Wear comfortable, loose fitting clothing. - Jewelry must be removed prior to entering the operating room. Rings and piercings that are not removed may be cut off. - The hospital will not accept responsibility for valuables. - Please leave all valuables, including medications, at home the day of surgery. If you are going home after surgery, a licensed driver trainee must drive you home. - NO public transportation without another adult if you receive anesthesia. - We recommend that an adult stay with you for 24 hours following discharge. - We also recommend that you do not drive, make important decision, drink alcoholic beverages, or take any drugs that were not prescribed by your health care provider for at least 24 hours after your discharge time. Follow any additional instructions given to you from your surgeon. If you or anyone in your household have experienced Covid symptoms in the past week, please notify your surgeon or the nurse liaison at the phone number below for possible testing. Telephone instructions given to ____PATIENT and asked if any additional questions and then verbalized understanding. Patient advised to call surgeon office or pre surgery nurse liaison [phone] if any additional questions.
--- NOTE | 2023-12-04 12:41 | PM.IMHP ---
H&P: HPI History of Present Illness Date/Time: 12/04/23 12:41 Chief Complaint: Patient has right knee osteoarthritis. He has failed conservative treatment. He would like to proceed with knee replacement surgery. Review of Systems Musculoskeletal: Musculoskeletal: Reports arthralgias, Reports joint swelling and Reports stiffness [facility] Past Medical History Medical History ESTHER (generalized anxiety disorder) HLD (hyperlipidemia) HTN (hypertension) Surgical History Surgical History History of arthroscopy of right knee 06/19/23 History of cholecystectomy Family History Family History Father Leukemia Mother Neuropathy Hypotension Social History Social History Smoking packs per day: 0.2 Smoking cigarettes per day: 4.0 Years smoked: 3 Smoking pack-years: 0.60 Smoking status: Former smoker Tobacco type: cigarettes Smoking end date: 11/24/79 Alcohol intake: current Drinks per week: 2 Alcohol use details: 3/MONTH Substance use: never Substance use type: does not use Do You Feel Safe in your Home?: Yes Lack of Transportation: No Lack of Food: Never True Current Housing: Decline to Answer Concerned About Future Housing: Decline to Answer Difficulty Paying Gas/Electric Bills: YES Difficulty Paying for Meds: No Currently Unemployed: No Education: High School Diploma/GED Difficulty w/ Childcare or Family Care: No Living arrangements: alone Occupation/Education: occupation Additional occupation/education comments: [employer]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 Gender identity (if verbalized by the patient): Male Spiritual care concerns: No Meds Home Medications and Allergies Home Medications Medication Instructions Recorded Confirmed Type metoprolol succinate 100 mg See Rx Instructions .Route 10/01/23 11/25/23 Rx tablet,extended release 24 hr .COMPLEX #90 tabs amlodipine 10 mg tablet 10 mg PO DAILY #30 tabs 10/03/23 11/25/23 Rx hydrochlorothiazide 25 mg tablet 25 mg PO DAILY #90 tabs 11/14/23 11/25/23 Rx potassium chloride 10 mEq 10 meq PO DAILY #90 caps 11/14/23 11/25/23 Rx capsule,extended release tamsulosin 0.4 mg capsule 0.4 mg PO DAILY #90 caps 11/14/23 11/25/23 Rx acetaminophen 500 mg capsule 500 mg PO Q6H PRN Pain 11/25/23 11/25/23 History lisinopril 20 mg tablet 20 mg PO DAILY 11/25/23 11/25/23 History rivaroxaban 10 mg tablet (Xarelto) 10 mg PO DAILY PE prophylaxis s/p 12/04/23 Rx joint replacement 10 days #10 tabs Allergies Allergy/AdvReac Type Severity Reaction Status Date / Time hydrocodone [From Vicodin] AdvReac Unknown ANXIETY, Verified 11/25/23 10:07 makes me feel weird Exam Narrative: patient has motion from a 3-110 degrees. Varus deformity grinding crepitus and pain with manipulation. Walks with an antalgic gait. Eyes: General: appearance normal, both eyes and all related structures Neck: Neck: supple Resp: Effort & Inspection: normal respiratory effort Cardio: Rate: regular rate Rhythm: regular rhythm Assessment and Plan Assessment and plan (1) Osteoarthritis of knees, bilateral: Code(s): M17.0 - Bilateral primary osteoarthritis of knee Status: Acute Assessment and Plan: Patient has arthritis both knees. He would like to proceed with right total knee arthroplasty. I have discussed this with him in detail. He has failed conservative treatment. Will proceed with right total knee per his request discussed risks benefits limitations and alternatives in detail.
[2023-12-08 06:10] VITALS: BP 156/81; PULSE 79; RESP 16; TEMP 37.4; O2SAT 97; BMI 31.0
[2023-12-08] MEDS: VANCOMYCIN 1,500 MG/NS 500 ML BAG 250 MG IVPB (06:43)
--- NOTE | 2023-12-08 06:47 | WPDHPUPDATE1 ---
History and Physical Update Update Date/Time: 12/08/23 06:47 History and Physical has been reviewed, including an updated exam of the patient. There are NO changes in the patient's condition. Risks, benefits, and alternatives have been discussed and questions answered. Patient agrees to proceed with procedure.
[2023-12-08 06:51] LABS: Potassium 2.4 mmol/L (3.4-5.0)
== END 2023-12-08 07:13 | disposition home or self-care (01) ==
PROVIDERS: PCP Family Medicine; Visit Provider Orthopaedic Surgery
PROC: (CPT 27447; principal; 2023-12-08 07:30)
DX: M17.11 Unilateral primary osteoarthritis, right knee (principal); I10 Essential (primary) hypertension; E78.5 Hyperlipidemia, unspecified; F41.1 Generalized anxiety disorder; Z87.891 Personal history of nicotine dependence; Z53.9 Procedure and treatment not carried out, unspecified reason
CPT/HCPCS: 36415; 84132; 99213; G0463; J0171; J1885; J2250; J2270; J2795; J3010; J3370

== ENCOUNTER 2023-12-17 14:06 | Outpatient (CLI) | payer OTHER, SELFPAY ==
[2023-12-17 15:20] LABS: Alanine Aminotransferase 96 U/L (16-63); Albumin Level 3.5 g/dL (3.4-5.0); Alkaline Phosphatase 101 U/L (46-116); Anion Gap 7 mmol/L (4-12); Aspartate Amino Transferase 20 U/L (15-37); Bilirubin,Total 0.7 mg/dL (0.00-1.00); Blood Urea Nitrogen 20 mg/dL (7-18); Calcium 9.2 mg/dL (8.5-10.1); Carbon Dioxide 33 mmol/L (21-32); Chloride 99 mmol/L (98-108); Estimated Glomerular Filt Rate > 60; Glucose 134 mg/dL (70-99); Osmolality Calculated 292 mOsm/kg (285-295); Sodium 139 mmol/L (136-145); Total Protein 7.6 g/dL (6.4-8.2)
== END 2023-12-17 14:07 | disposition home or self-care (01) ==
PROVIDERS: PCP Family Medicine; Visit Provider Family Medicine
DX: F32.9 Major depressive disorder, single episode, unspecified (principal)
CPT/HCPCS: 36415; 80053

== ENCOUNTER 2023-12-24 14:50 | Outpatient (CLI) | payer OTHER, SELFPAY ==
[2023-12-24 15:35] LABS: Alanine Aminotransferase 54 U/L (16-63); Albumin Level 3.7 g/dL (3.4-5.0); Alkaline Phosphatase 122 U/L (46-116); Anion Gap 10 mmol/L (4-12); Aspartate Amino Transferase 33 U/L (15-37); Bilirubin,Total 0.8 mg/dL (0.00-1.00); Blood Urea Nitrogen 14 mg/dL (7-18); Calcium 8.6 mg/dL (8.5-10.1); Carbon Dioxide 29 mmol/L (21-32); Chloride 103 mmol/L (98-108); Estimated Glomerular Filt Rate > 60; Glucose 105 mg/dL (70-99); Osmolality Calculated 294 mOsm/kg (285-295); Potassium 3.2 mmol/L (3.5-5.1); Sodium 142 mmol/L (136-145); Total Protein 7.9 g/dL (6.4-8.2)
== END 2023-12-24 14:51 | disposition home or self-care (01) ==
PROVIDERS: PCP Family Medicine; Visit Provider Family Medicine
DX: E87.1 Hypo-osmolality and hyponatremia (principal)
CPT/HCPCS: 36415; 80053

== ENCOUNTER 2023-12-31 15:52 | Outpatient (CLI) | payer OTHER, SELFPAY ==
[2023-12-31 17:02] LABS: Alanine Aminotransferase 50 U/L (16-63); Albumin Level 3.9 g/dL (3.4-5.0); Alkaline Phosphatase 136 U/L (46-116); Aspartate Amino Transferase 25 U/L (15-37); Bilirubin,Total 0.6 mg/dL (0.00-1.00); Blood Urea Nitrogen 11 mg/dL (7-18); Calcium 9.5 mg/dL (8.5-10.1); Chloride 104 mmol/L (98-108); Estimated Glomerular Filt Rate > 60; Glucose 92 mg/dL (70-99); Osmolality Calculated 295 mOsm/kg (285-295); Potassium 3.8 mmol/L (3.5-5.1); Sodium 143 mmol/L (136-145); Total Protein 8.2 g/dL (6.4-8.2)
[2023-12-31 17:19] LABS: Anion Gap 13 mmol/L (4-12); Carbon Dioxide 26 mmol/L (21-32)
== END 2023-12-31 15:53 | disposition home or self-care (01) ==
PROVIDERS: PCP Family Medicine; Visit Provider Family Medicine
DX: E87.6 Hypokalemia (principal)
CPT/HCPCS: 36415; 80053

== ENCOUNTER 2024-02-13 11:03 | Outpatient (CLI) | payer SELFPAY ==
[2024-02-13 12:03] LABS: Alanine Aminotransferase 49 U/L (16-63); Albumin Level 3.9 g/dL (3.4-5.0); Alkaline Phosphatase 120 U/L (46-116); Anion Gap 10 mmol/L (4-12); Aspartate Amino Transferase 28 U/L (15-37); Bilirubin,Total 0.9 mg/dL (0.00-1.00); Blood Urea Nitrogen 22 mg/dL (7-18); Calcium 9.2 mg/dL (8.5-10.1); Carbon Dioxide 26 mmol/L (21-32); Chloride 103 mmol/L (98-108); Estimated Glomerular Filt Rate 56; Glucose 105 mg/dL (70-99); Osmolality Calculated 291 mOsm/kg (285-295); Potassium 4.4 mmol/L (3.5-5.1); Sodium 139 mmol/L (136-145)
== END 2024-02-13 11:04 | disposition home or self-care (01) ==
PROVIDERS: PCP Family Medicine; Visit Provider Family Medicine
DX: E87.1 Hypo-osmolality and hyponatremia (principal)
CPT/HCPCS: 36415; 80053

== ENCOUNTER 2024-02-16 09:00 | Outpatient (CLI) | payer OTHER, SELFPAY ==
--- NOTE | ~2024-02-16 | US_ITS ---
EXAMINATION: US retroperitoneal duplex ltd DATE: 02/16/2024 09:45 INDICATION: Essential (primary) hypertension TECHNIQUE: Multiple grayscale, color Doppler, and pulsed Doppler images of the kidneys and renal javan yordan were obtained. COMPARISON: None. FINDINGS: The aorta peak systolic velocity is 98 cm/s. The right renal artery peak systolic velocity is 50 cm/s in the proximal segment, 57 cm/s in the mid segment, and 65 cm/s in the distal segment. Right kidney measures 12.0 cm in length with a couple anechoic cysts in the right kidney measuring 4.3 cm and 3.6 m maximal diameters. The left renal artery is unable to be visualized due to shadowing bowel gas. Th e left kidney measures 15.6 similar inclusive of an 11.0 cm anechoic left renal cyst. IMPRESSION: 1. No Doppler evidence of renal artery stenosis in the right renal artery. The left renal artery was unable to be visualized due to shadowing bowel gas. 2. Bilateral renal cysts. Reviewed, dictated and finalized at location A.
== END 2024-02-16 09:01 | disposition home or self-care (01) ==
PROVIDERS: PCP Family Medicine; Visit Provider Family Medicine
DX: I10 Essential (primary) hypertension (principal); N28.1 Cyst of kidney, acquired
CPT/HCPCS: 93976

== ENCOUNTER 2024-07-28 13:49 | Outpatient (CLI) | payer OTHER, SELFPAY ==
--- NOTE | 2024-07-28 | ECHO_ITS ---
Patient Info Name: Franklyn Mccormack Age: 64 years : 1960 Gender: Male Ht: 69 in Wt: 205 lbs BSA: 2.15 m2 HR: 67 bpm BP: 167 / 100 mmHg Technical Quality: Fair Exam Date: 07/28/2024 2:23 PM Exam Location: Echo Lab Patient Status: Outpatient Admit Date: 07/28/2024 Staff Ordering Physician: Monty Mccormick MD Rail Tractor Operator: Betsy Olmos RDCS Attending Provider: Monty Mccormick MD Referring Physician: Anny LOPEZ; Exam Type: CA echo doppler color flow Study Info Indications - Hypertension Complete two-dimensional, color flow and Doppler transthoracic echocardiogram is performed. Summary 1. Complete two-dimensional, color flow and Doppler transthoracic echocardiogram is performed. 2. The left ventricle is normal in size and systolic function. The left ventricular stubbs are moderately thickened. There is concentric left ventricular remodeling. The left ventricular ejection fraction is visually estimated to be 65-70%. 3. The right ventricle is normal in size and systolic function. 4. There is no significant valvular disease. Left Ventricle The left ventricle is normal in size and systolic function. The left ventricular stubbs are moderately thickened. There is concentric left ventricular remodeling. The left ventricular ejection fraction is visually estimated to be 65-70%. Right Ventricle The right ventricle is normal in size and systolic function. Aortic Valve The aortic valve is trileaflet and opens well. There is trace aortic regurgitation. Pulmonic Valve The pulmonic valve is grossly normal. There is no pulmonic regurgitation by color Doppler in this study. Mitral Valve The mitral valve is grossly normal. There is trace mitral regurgitation. Tricuspid Valve The tricuspid valve is normal. There is trace tricuspid regurgitation. Pericardium/Pleural Pericardium is normal in appearance with no evidence for significant pericardial effusion. Inferior Vena Cava Normal inferior vena cava with >50% collapse upon inspiration consistent with normal right atrial pressure, 3 mmHg. Normal inferior vena cava with >50% collapse upon inspiration consistent with normal right atrial pressure, 3 mmHg. Aorta The aortic root at the level of the sinus of Valsalva measures 3.2 cm in diameter. Left Ventricular Outflow Tract Name Value Normal LVOT 2D LVOT Diameter 2.0 cm LVOT Doppler LVOT Peak Gradient 5 mmHg LVOT Mean Gradient 3 mmHg LVOT VTI 27 cm LVOT VTI/AV VTI Ratio 0.8 LVOT Stroke Volume 88 ml LVOT CO 15.0 l/min LVOT CI 7.0 l/min/m2 Pulmonic Valve Name Value Normal PV Doppler PV Peak Gradient 4 mmHg Mitral Valve Name Value Normal MV Doppler MV Decel Aurora 235 cm/s2 MV PHT 87 ms MV Area (PHT) 2.5 cm2 4.0-5.0 MV Diastolic Function MV E Peak Velocity 70 cm/s MV A Peak Velocity 91 cm/s MV E/A 0.8 MV Decel Time 299 ms MV Annular TDI MV E/e' (Septal) 10.7 <=8.0 MV E/e' (Lateral) 6.3 <=8.0 MV E/e' (Average) 8.5 Tricuspid Valve Name Value Normal TV Regurgitation Doppler TR Peak Velocity 224 cm/s TR Peak Gradient 20 mmHg Estimated PAP/RSVP RA Pressure 3 mmHg <=5 PA Systolic Pressure 23 mmHg <36 RV Systolic Pressure 23 mmHg <36 Aorta Name Value Normal Ascending Aorta Ao Root Diameter (MM) 3.6 cm Ao Root Diam Index (MM) 1.7 cm/m2 Aortic Valve Name Value Normal AV Doppler AV Peak Velocity 156 cm/s AV Peak Gradient 10 mmHg AV Mean Gradient 5 mmHg AV VTI 33 cm AV Area (Cont Eq VTI) 2.7 cm2 >=3.0 AV Area (Cont Eq Juan) 2.4 cm2 AV Regurgitation 2D LVOT Area 3.2 cm2 Ventricles Name Value Normal LV Dimensions 2D/MM IVS Diastolic Thickness (2D) 1.4 cm 0.6-1.0 LVID Diastole (2D) 3.9 cm 4.2-5.8 LVIW Diastolic Thickness (2D) 1.3 cm 0.6-1.0 LVID Systole (2D) 2.5 cm 2.5-4.0 LVOT Diameter 2.0 cm LV Mass (2D Cubed) 200.04 g 88.00-224.00 LV Mass Index (2D Cubed) 93 g/m2 49-115 Relative Wall Thickness (2D) 0.67 LV Fractional Shortening/Ejection Fraction 2D/MM LV Fractional Shortening (2D) 38 % 25-43 LV EF (2D Teicholz) 68 % 52-72 LV Diastolic Volume (4C MOD) 122 ml LV EF (4C MOD) 61 % LV Diastolic Volume (2C MOD) 90 ml LV EF (2C MOD) 65 % LV Diastolic Volume (BP MOD) 107 ml 62-150 LV Diastolic Volume Index (BP MOD) 50 ml/m2 34-74 LV Systolic Volume (BP MOD) 39 ml 21-61 LV Systolic Volume Index (BP MOD) 18 ml/m2 11-31 LV EF (BP MOD) 64 % 52-72 LV Diastolic Length (4C) 8.3 cm LV Systolic Length (4C) 6.4 cm LV Stroke Volume (4C MOD) 74 ml Atria Name Value Normal LA Dimensions LA Dimension (MM) 3.7 cm 3.0-4.1 LA Volume (4C A-L) 40 ml LA Volume (BP A-L) 48 ml RA Dimensions RA Area (4C) 14.1 cm2 <=18.0 Report Signatures
--- OUTSIDE RECORDS SUMMARY | 2024-07-28 15:21 | XMS_ITS | Referral Summary ---
Author Organization [facility] [address] Address [address] [place] [address] Care Team Providers Care Aircraft Maintenance Engineer Name Role Phone Don Jones DO Primary Care Provider Allergies No known active allergies Medications metoprolol XL (TOPROL-XL) 100 mg 24 hr tablet Take 1 tablet (100 mg total) by mouth every morning Active hydrALAZINE (APRESOLINE) 50 mg tablet Take 1 tablet (50 mg total) by mouth 3 (three) times a day 4 Active amLODIPine (NORVASC) 10 mg tablet Take 1 tablet (10 mg total) by mouth every morning Active lisinopriL (PRINIVIL,ZEST RIL) 20 mg tablet Take 1 tablet (20 mg total) by mouth daily Active spironolactone (ALDACTONE) 50 mg tablet TAKE 1 TABLET(50 MG) BY MOUTH DAILY 30 tablet 10 5 Active spironolactone (ALDACTONE) 50 mg tablet Take 1 tablet (50 mg total) by mouth daily 30 tablet 2 4 06/29/19 25 Discontinued Active Problems Problem Noted Date Diagnosed Date Secondary hypertension 03/26/2024 History of hyperaldosteronism 03/26/2024 Social History Tobacco Use Types Packs/Day Years Used Date Smoking Tobacco: Never Smokeless Tobacco: Never Tobacco Cessation:Counseling Given: Not Answered Personal Safety Answer Date Recorded Getting School Help Needed Not on file 02/18 Sex and Gender Information Value Date Recorded Sex Assigned at Not on file Legal Sex Male 3:41 PM CDT Gender Identity Not on file Sexual Orientation Not on file Last Filed Vital Signs Vital Sign Reading Time Taken Comments Blood Pressure 164/98 03/26/2024 2:14 PM CDT Pulse 74 03/26/2024 2:14 PM CDT Temperature - - Respiratory Rate - - Oxygen Saturation 96% 03/26/2024 2:14 PM CDT Inhaled Oxygen Concentration - - Weight 97.1 kg (214 lb) 03/26/2024 2:14 PM CDT Height 175.3 cm (5' 9 ) 03/26/2024 2:14 PM CDT Body Mass Index 31.6 03/26/2024 2:14 PM CDT Plan of Treatment Not on file Insurance [employer] MEDICARE Care Teams Aircraft Maintenance Engineer Relationship Specialty Start Date End Date Don Jones DO [address] [place] [address] PCP - General Family Medicine 02/19/24
--- OUTSIDE RECORDS SUMMARY | 2024-07-28 15:21 | XMS_ITS | Encounter Summary ---
Author Organization [facility] Address [address] [place] [address] Care Team Providers Care Director Regulatory Affairs Name Role Phone Jaiden Owens MD Primary Care Provider [phone] Encounter Details Date Type Department Care Team (Late st Contact Info) Description 10/31/2014 Chart Note [facility] Therapy Services Brian Neil [address] [place] [address] Kitty Daniel, Physical Therapist Social History Tobacco Use Types Packs/Day Years Used Date Smoking Tobacco: Never Alcohol Use Standard Drinks/Week Comments Not Asked 0 (1 standard drink = 0.6 oz pur e alcohol) Sex and Gender Information Value Date Recorded Sex Assigned at Not on file Legal Sex Male 2:53 AM BODY JOINER Gender Identity Not on file Sexual Orientation Not on file documented as of this encounter Progress Notes * Kitty Daniel, Physical Therapist - 10/31/2014 10:34 AM CDT Images from the original note were not included. Physical Therapy Discharge Summary Patient: Franklyn Mccormack Date: 10/31/2014 Date of : 1960 Physician: Kvng Resendiz MD Diagnosis: L knee pain Franklyn Mccormack was seen from 07/25/14 to 08/23/14 for a total of 5 visits with 0 no-shows and 1 cancellation on 09/06/14. Since then, Boy did not return for further therapy visits, therefore a completere-evaluation of status was not completed & he is Discharged from PT. Please contact me if you have any questions. Thank you for this referral. Kitty Daniel, SABRINA [facility] [address] [facility], [address] [place] [address] (phone) [phone] (fax) documented in this encounter Plan of Treatment Not on file documented as of this encounter Visit Diagnoses Not on filedocumented in this encounter Care Teams Director Regulatory Affairs Relationship Specialty Start Date End Date Jaiden Owens MD PCP - General Family Practice 12/24/19 documented as of this encounter
--- OUTSIDE RECORDS SUMMARY | 2024-07-28 15:21 | XMS_ITS | Clinical Summary ---
Author Organization [facility] Address [facility] [address] [place] [address] Care Team Providers Care Pattern Room Attendant Name Role Phone None, Provider MD Primary Care Provider Unavaila ble Allergies No known active allergies Medications metoprolol succinate ER 25 MG 24 hr tablet Take 25 mg by mouth daily. Active amLODIPine 5 MG tablet Take 5 mg by mouth daily. Active lisinopril 20 MG tablet Take 20 mg by mouth daily. Active Immunizations Name Administration Dates Next Due Tdap (Boostrix) 10/01/2021 Social History Tobacco Use Types Packs/Day Years Used Date Smoking Tobacco: Never Assessed Sex and Gender Information Value Date Recorded Sex Assigned at Not on file Legal Sex Male 8:15 AM CDT Gender Identity Not on file Sexual Orientation Not on file Last Filed Vital Signs Vital Sign Reading Time Taken Comments Blood Pressure 156/79 10/01/2021 2:30 PM CDT Pulse 62 10/01/2021 2:30 PM CDT Temperature 36.5 C (97.7 F) 10/01/2021 8:18 AM CDT Respiratory Rate 18 10/01/2021 2:30 PM CDT Oxygen Saturation 94% 10/01/2021 2:30 PM CDT Inhaled Oxygen Concentration - - Weight 87.5 kg (193 lb) 10/01/2021 8:18 AM CDT Height 175.3 cm (5' 9 ) 10/01/2021 8:18 AM CDT Body Mass Index 28.5 10/01/2021 8:18 AM CDT Plan of Treatment Health Maintenance Due Date Last Done Comments Colorectal Cancer Screening Colonoscopy (10 Years) 1960 Hepatitis C 1976 Zoster Vaccines (1 of 2) 2008 Pneumococcal Vaccine: 65+ Years (2 of 2 - PCV) 2023 02/13/2017 COVID-19 Vaccine (3 - 2023-2 5 season) 2024 12/29/2020, 12/08/2020 Influenza Adult (#1) 2024 02/15/2015, 2014 DTaP, Tdap and Td Vaccines ( 4 - Td or Tdap) 10/02/2031 10/01/2021, 03/31/2014, 01/02/2013 RSV Immunization or 60+ Years (1 - 1-dose 75+ series) 2033 Meningococcal B Vaccine Aged Out No l onger eligible based on patient's age to complete this topic Meningococcal Vaccine Aged Out No gilbert el eligible based on patient's age to complete this topic RSV Immunizations Under 20 Months Aged Out No longer eligible b ased on patient's age to complete this topic Insurance Care Teams Pattern Room Attendant Relationship Specialty Start Date End Date None, Provider, PCP - General 10/01/21
--- OUTSIDE RECORDS SUMMARY | 2024-07-28 15:21 | XMS_ITS | Encounter Summary ---
Author Organization [facility] Address [address] [place] [address] Care Team Providers Care Cell Installer Name Role Phone Jaiden Owens MD Primary Care Provider [phone] Encounter Details Date Type Department Care Team (Late st Contact Info) Description 03/26/2005 Outpatient Historical [facility] Jay Lopez MD [facility] [place] [address] Er, Authorized P NO ADDRESS ON FILE SPRAIN OF ANKLE NOS (Primary Dx) Social History Tobacco Use Types Packs/Day Years Used Date Smoking Tobacco: Never Assessed Sex and Gender Information Value Date Recorded Sex Assigned at Not on file Legal Sex Male 2:53 AM END FINDER FORMING DEPARTMENT Gender Identity Not on file Sexual Orientation Not on file documented as of this encounter Plan of Treatment Not on file documented as of this encounter Visit Diagnoses Diagnosis Sprain of ankle, unspecified site- Primary documented in this encounter Care Teams Cell Installer Relationship Specialty Start Date End Date Jaiden Owens MD PCP - General Family Practice 12/24/19 documented as of this encounter
--- OUTSIDE RECORDS SUMMARY | 2024-07-28 15:21 | XMS_ITS | Clinical Summary ---
Author Organization [facility] [address] Address [address] [place] [address] Care Team Providers Care Conveyor Feeder Offbearer Name Role Phone Don Jones DO Primary [...] Secondary hypertension 03/26/2024 History of hyperaldosteronism 03/26/2024 Surgical History Surgery Date Site/Laterality Comments MENISCUS SURGERY Medical History Medical History Date Comments Hypertension Family History Medical History Relation Name Comments Leukemia Father Diabetes Mother Heart failure Mother Relation Name Status Comments Father Mother Social History Tobacco Use Types Packs/Day Years Used Date Smoking Tobacco: Never Smokeless Tobacco: Never Tobacco Cessation:Counseling Given: Not Answered Personal Safety Answer Date Recorded Getting School Help Needed Not on file 02/18 Sex and Gender Information Value Date Recorded Sex Assigned at Not on file Legal Sex Male 3:41 PM CDT Gender Identity Not on file Sexual Orientation Not on file Obstetrics History Last Filed Vital Signs Vital Sign Reading [...] 03/26/2024 2:14 PM CDT Plan of Treatment Health Maintenance Due Date Last Done Comments Colon Cancer Screening-Colonoscopy 1960 Depression Screening 1960 Fall Risk Assessment 1960 Hepatitis C Screening 1960 Prostate Cancer Screening-PSA 1960 Hepatitis B Screening 1976 Zoster Vaccine (1 of 2) 2008 Pneumococcal vaccine 65+ (2 of 2 - PCV) 02/13/2018 02/13/2017 Well Visit 65+ 2023 Covid-19 Vaccine (3 - season) 01/25/202410/2020, 12/08/2020 Influenza Vaccine (#1) 2024 02/15/2015, 2013 DTaP/Tdap/Td Vaccine (4 - Td or Tdap) 10/02/2031 10/01/2021, 03/31/2014, 01/02/2013 Insurance [employer] MEDICARE [facility] Address: [address] [address] [place] [address] Care Teams Conveyor Feeder Offbearer Relationship Specialty Start Date End Date Don Jones DO [address] [place] [address] PCP - General Family Medicine 02/19/24
--- OUTSIDE RECORDS SUMMARY | 2024-07-28 15:22 | XMS_ITS | Clinical Summary ---
Author Organization [facility] Address [address] [place] [address] Care Team Providers Care Grinding Machine Operator Portable Name Role Phone Jaiden Owens MD Primary Care Provider Allergies No known active allergies Medications fluticasone propionate (FLONASE) 50 mcg/spray [place], Suspension nasal inhalerIndication s:Common cold Administer 2 Sprays in each nostril daily. 16 Gram 1 0 Active lisinopriL (PRINIVIL) 20 mg tabletIndications :Essential hypertension TRANSFERRED: 09/18/20 -READ RX NOTE (ALT-N)- TAKE ONE TABLET BY MOUTH DAILY 90 Tablet 3 1 Active potassium chloride (KLOR-CON) 20 mEq Extended Release tabletIndications :Hypokalemia TAKE ONE TABLET BY MOUTH TWICE A DAY 60 Tablet 11 1 Active amLODIPine (NORVASC) 10 mg tabletIndications :Essential hypertension Take 1 Tablet (10 mg) by mouth daily. 30 Tablet 2 Active metoprolol succinate (TOPROL XL) 100 mg Extended Release 24 hour tabletIndications :Essential hypertension Take 1 Tablet (100 mg) by mouth daily. 30 Tablet 2 Active Active Problems Problem Noted Date Diagnosed Date Pancreatic cyst 02/13/2017 Aldosteronism 01/22/2016 Stopped smoking with greater than 10 pack year h istory 01/10/2016 Hypokalemia 12/03/2015 HTN (hypertension) 09/27/2013 Obesity 09/27/2013 Adjustment reaction with anxiety and depression 09/27/2013 EIC (epidermal inclusion cyst) 09/27/2013 Resolved Problems Problem Noted Date Diagnosed Date Resolved Date Cigarette nicotine dependenc e without complication 06/07/2015 01/10/2016 Immunizations Immunization Administration Dates Next Due (ADACEL/BOOSTRIX)(10 YR UP) TDAP VACCINE, 0.5ML, IM 03/31/2014,01/02/2013 (PNEUMOVAX 23)(50 YRS UP) PN EUMOCOCCAL POLYSACCHARIDE (PPV23) 0.5 ML, IM 02/13/2017 Influenza Vaccine Quad Split 3+ Yrs Im 5 Influenza Vaccine Split 3+ Yrs IM 2014 Family History Medical History Relation Name Comments Diabetes Mother Heart Disease Mother Relation Name Status Comments Mother Social History Tobacco Use Types Packs/Day Years Used Date Smoking Tobacco: Former Cigarettes 0.3 8 0 06/02/2010 - 06/02/2018 Smokeless Tobacco: Never Tobacco Cessation:Counseling Given: Yes Alcohol Use Standard Drinks/Week Comments Yes 2 (1 standard drink = 0.6 oz pur e alcohol) Sex and Gender Information Value Date Recorded Sex Assigned at Not on file Legal Sex Male 2:53 AM CARDIOVASCULAR OR NURSE Gender Identity Not on file Sexual Orientation Not on file Last Filed Vital Signs Vital Sign Reading Time Taken Comments Blood Pressure 168/98 04/13/2020 2:01 PM CARDIOVASCULAR OR NURSE Pulse 79 04/13/2020 2:01 PM CARDIOVASCULAR OR NURSE Temperature 36.7 C (98 F) 04/13/2020 2:01 PM CARDIOVASCULAR OR NURSE Respiratory Rate 18 04/13/2020 2:01 PM CARDIOVASCULAR OR NURSE Oxygen Saturation 97% 04/13/2020 2:01 PM CARDIOVASCULAR OR NURSE Inhaled Oxygen Concentration - - Weight 88 kg (194 lb) 04/13/2020 2:01 PM CARDIOVASCULAR OR NURSE Height 175.3 cm (5' 9 ) 04/13/2020 2:01 PM CARDIOVASCULAR OR NURSE Body Mass Index 28.65 04/13/2020 2:01 PM CARDIOVASCULAR OR NURSE Plan of Treatment Health Maintenance Due Date Last Done Comments COLORECTAL SCREENING 2003 Colorectal Cancer Screening 2003 FIT-DNA Q 3 years 2003 FIT/FOBT Q 1 year 2003 Flex Sig/CT Colonography Q 5 years 2003 ZOSTER VACCINE (1 of 2) 2008 PNEUMOCOCCAL VACCINE 50+ YEA RS (2 of 2 - PCV) 02/13/2018 02/13/2017 INFLUENZA VACCINE (#1) 2023 02/15/2015, 2013 DTAP/TDAP/TD VACCINES (3 - Td or Tdap) 03/31/2024, 01/02/2013 RSV VACCINE (60+ or ) (1 - 1-dose 75+ series) 2033 Care Teams Grinding Machine Operator Portable Relationship Specialty Start Date End Date Jaiden Owens MD PCP - General Family Practice 12/24/19
== END 2024-07-28 13:50 | disposition home or self-care (01) ==
LOC: ANHCARD 13:51
PROVIDERS: PCP Family Medicine; Visit Provider Specialist
DX: I10 Essential (primary) hypertension (principal)
CPT/HCPCS: 93306

== ENCOUNTER 2024-08-02 08:54 | Outpatient (CLI) | payer OTHER, SELFPAY ==
[2024-08-02 09:37] LABS: Anion Gap 11 mmol/L (4-12); Blood Urea Nitrogen 19 mg/dL (9-20); Calcium 9.7 mg/dL (8.4-10.2); Carbon Dioxide 23 mmol/L (22-30); Chloride 106 mmol/L (98-107); Estimated Glomerular Filt Rate > 60; Glucose 120 mg/dL (65-110); Sodium 140 mmol/L (137-145)
--- OUTSIDE RECORDS SUMMARY | 2024-08-02 09:46 | XMS_ITS | Clinical Summary ---
Author Organization [facility] Address [address] [place] [address] Care Team Providers Care Account Liaison Hospice Name Role Phone Jaiden Owens MD Primary Care Provider [phone] Allergies No known active allergies Medications fluticasone propionate (FLONASE) 50 mcg/spray [place], Suspension nasal inhalerIndication s:Common cold Administer 2 [...] on file Legal Sex Male 2:53 AM PROFESSIONAL ORGANIZER Gender Identity Not on file Sexual Orientation Not on file Last Filed Vital Signs Vital Sign Reading Time Taken Comments Blood Pressure 168/98 04/13/2020 2:01 PM PROFESSIONAL ORGANIZER Pulse 79 04/13/2020 2:01 PM PROFESSIONAL ORGANIZER Temperature 36.7 C (98 F) 04/13/2020 2:01 PM PROFESSIONAL ORGANIZER Respiratory Rate 18 04/13/2020 2:01 PM PROFESSIONAL ORGANIZER Oxygen Saturation 97% 04/13/2020 2:01 PM PROFESSIONAL ORGANIZER Inhaled Oxygen Concentration - - Weight 88 kg (194 lb) 04/13/2020 2:01 PM PROFESSIONAL ORGANIZER Height 175.3 cm (5' 9 ) 04/13/2020 2:01 PM PROFESSIONAL ORGANIZER Body Mass Index 28.65 04/13/2020 2:01 PM PROFESSIONAL ORGANIZER Plan of Treatment Health Maintenance Due Date [...] - 1-dose 75+ series) 2033 Care Teams Account Liaison Hospice Relationship Specialty Start Date End Date Jaiden Owens MD PCP - General Family Practice 12/24/19
--- OUTSIDE RECORDS SUMMARY | 2024-08-02 09:46 | XMS_ITS | Encounter Summary ---
Author Organization [facility] Address [address] [place] [address] Care Team Providers Care Toby Maker Name Role Phone Jaiden Owens MD Primary Care Provider Encounter Details Date Type Department Care Team (Late st Contact Info) Description 03/26/2005 Outpatient Historical [facility] [place] [address] Er, Authorized P NO ADDRESS ON FILE SPRAIN OF ANKLE NOS (Primary Dx) Social History Tobacco Use Types Packs/Day Years Used Date Smoking Tobacco: Never Assessed Sex and Gender Information Value Date Recorded Sex Assigned at Not on file Legal Sex Male 2:53 AM PINSETTER MECHANIC AUTOMATIC Gender Identity Not on file Sexual Orientation Not on file documented as of this encounter Plan of Treatment Not on file documented as of this encounter Visit Diagnoses Diagnosis Sprain of ankle, unspecified site- Primary documented in this encounter Care Teams Toby Maker Relationship Specialty Start Date End Date Jaiden Owens MD PCP - General Family Practice 12/24/19 documented as of this encounter
--- OUTSIDE RECORDS SUMMARY | 2024-08-02 09:46 | XMS_ITS | Encounter Summary ---
Author Organization [facility] Address [address] [place] [address] Care Team Providers Care Key Punch Teacher Name Role Phone Jaiden Owens MD Primary Care Provider [phone] Encounter Details Date Type Department Care Team (Late st Contact Info) Description 10/31/2014 Chart Note [facility] Services Brian Neil [address] [place] [address] Kitty Daniel, Physical Therapist Social History Tobacco Use Types Packs/Day Years Used Date Smoking Tobacco: Never Alcohol Use Standard Drinks/Week Comments Not Asked 0 (1 standard drink = 0.6 oz pur e alcohol) Sex and Gender Information Value Date Recorded Sex Assigned at Not on file Legal Sex Male 2:53 AM CHEMICAL WORKER Gender Identity Not on file Sexual Orientation [...] you for this referral. Kitty Daniel, SABRINA [facility] [address] [facility], [address] [place] [address] (phone) [phone] (fax) documented in this encounter Plan of Treatment Not on file documented as of this encounter Visit Diagnoses Not on filedocumented in this encounter Care Teams Key Punch Teacher Relationship Specialty Start Date End Date Jaiden Owens MD PCP - General Family Practice 12/24/19 documented as of this encounter
--- OUTSIDE RECORDS SUMMARY | 2024-08-02 09:46 | XMS_ITS | Clinical Summary ---
Author Organization [facility] Address [facility] [place] [address] Care Team Providers Care Physical Therapy Manager Name Role Phone None, Provider MD Primary [...] to complete this topic Insurance Care Teams Physical Therapy Manager Relationship Specialty Start Date End Date None, Provider, PCP - General 10/01/21
--- OUTSIDE RECORDS SUMMARY | 2024-08-02 09:46 | XMS_ITS | Encounter Summary ---
Author Organization [facility] Address [address] [place] [address] Care Team Providers Care Compress Engineer Name Role Phone Don Jones DO Primary Care Provider Encounter Details Date Type Department Care Team (Late st Contact Info) Description 07/28/2024 Orders Only [facility] Management [address] [place] [address] Monty Mccormick MD [address] [address] Social History Tobacco Use Types Packs/Day Years Used Date Smoking Tobacco: Never Smokeless Tobacco: Never Sex and Gender Information Value Date Recorded Sex Assigned at Not on file Legal Sex Male 3:41 PM CDT Gender Identity Not on file Sexual Orientation Not on file documented as of this encounter Plan of Treatment Not on file documented as of this encounter Procedures Procedure Name Priority Date/Time Associated Diagnosis Comments CARDIOLOGY DOCUMENT SCAN 07/28/2024 documented in this encounter Results * Cardiology Document Scan (07/28/2024) Anatomical Region Laterality Modality Other Monty Mccormick MD [facility] C[facility]IAC SERVICES PROC EDURES Final Result documented in this encounter Visit Diagnoses Not on filedocumented in this encounter Care Teams Compress Engineer Relationship Specialty Start Date End Date Don Jones DO [address] [place] [address] PCP - General Family Medicine 02/19/24 documented as of this encounter
--- OUTSIDE RECORDS SUMMARY | 2024-08-02 09:46 | XMS_ITS | Referral Summary ---
Author Organization [facility] [address] [facility] [address] Address [address] [place] [address] Care Team Providers Care Woven Label Designer Name Role Phone Don Jones DO Primary Care Provider Encounters Date Type Department Care Team Description 08/02/2024 8:00 AM CDT Office Visit [facility] Cardiology [address] [facility] [address] [place] [address] Tesha Mascorro NP Primary hypertension (Primary Dx); LVH (left ventricular hypertrophy) 07/28/2024 Orders Only [facility] Health Information Management [address] [place] [address] Monty Mccormick MD from Last 3 Months Allergies No known active allergies Medications metoprolol XL (TOPROL-XL) 100 mg 24 hr tablet Take 1 tablet (100 mg total) by mouth every morning Active hydrALAZINE (APRESOLINE) 50 mg tablet Take 1 tablet (50 mg total) by mouth 3 (three) times a day 02/18/2024 Active amLODIPine (NORVASC) 10 mg tablet Take 1 tablet (10 mg total) by mouth every morning Active lisinopriL (PRINIVIL,ZESTR [place]) 20 mg tablet Take 1 tablet (20 mg total) by mouth daily Active spironolactone (ALDACTONE) 50 mg tablet TAKE 1 TABLET(50 MG) BY MOUTH DAILY 30 tablet 10 06/29/2024 Active Active Problems Problem Noted Date Diagnosed Date Secondary hypertension 03/26/2024 History of hyperaldosteronism 03/26/2024 Social History Tobacco Use Types Packs/Day Years Used Date Smoking Tobacco: Never Smokeless Tobacco: Never Tobacco Cessation:Counseling Given: Not Answered Sex and Gender Information Value Date Recorded Sex Assigned at Not on file Legal Sex Male 3:41 PM CDT Gender Identity Not on file Sexual Orientation Not on file Last Filed Vital Signs Vital Sign Reading Time Taken Comments Blood Pressure 140/82 08/02/2024 8:05 AM CDT Pulse 72 08/02/2024 8:05 AM CDT Temperature - - Respiratory Rate - - Oxygen Saturation 99% 08/02/2024 8:05 AM CDT Inhaled Oxygen Concentration - - Weight 98 kg (216 lb) 08/02/2024 8:05 AM CDT Height 175.3 cm (5' 9 ) 08/02/2024 8:05 AM CDT Body Mass Index 31.9 08/02/2024 8:05 AM CDT Plan of Treatment Not on file Procedures Procedure Name Priority Date/Time Associated Diagnosis Comments CARDIOLOGY DOCUMENT SCAN 07/28/2024 from Last 3 Months Results * Cardiology Document Scan (07/28/2024) Anatomical Region Laterality Modality Other Monty Mccormick MD [facility] Final Result from Last 3 Months Insurance [facility] MEDICARE WORKERS COMPENSATION GENERIC COMPENSATION Care Teams Woven Label Designer Relationship Specialty Start Date End Date Don Jones DO [address] [place] [address] PCP - General Family Medicine 02/19/24
--- OUTSIDE RECORDS SUMMARY | 2024-08-02 09:46 | XMS_ITS | Encounter Summary ---
Author Organization [facility] Healthcare Address [address] [place] [address] Care Team Providers Care Weekday Babysitter Name Role Phone Don Jones DO Primary Care Provider Reason for Visit * Reason Comments Follow-up Encounter Details Date Type Department Care Team (Late st Contact Info) Description 08/02/2024 8:00 AM CDT Office Visit [facility] Cardiology [address] [place] [phone] Tesha Mascorro NP [address] [place] [address] Primary hypertension (Primary Dx); LVH (left ventricular hypertrophy) Social History Tobacco Use Types Packs/Day Years Used Date Smoking Tobacco: Never Smokeless Tobacco: Never Sex and Gender Information Value Date Recorded Sex Assigned at Not on file Legal Sex Male 3:41 PM CDT Gender Identity Not on file Sexual Orientation Not on file documented as of this encounter Last Filed Vital Signs Vital Sign Reading [...] Mass Index 31.9 08/02/2024 8:05 AM CDT documented in this encounter Progress Notes * Tesha Mascorro NP - 08/02/2024 8:00 AM CDT Images from the original note were not included. [facility] Cardiology [address] [place] [address] Date of Visit: 08/02/2024 Patient ID: Franklyn Mccormack 1960 Chief Complaint Patient presents with Follow-up Franklyn Mccormack is a 64 y.o. male who was referred to Dr. Mccormick for assistance in managing hypertension. He returns to the office for follow up after starting spironolactone and having an echocardiogram. History of Present Illness: Franklyn Mccormack is a 64 y.o. male with longstanding hypertension. He is seeing me today for consultation at the request of his PCP because his blood pressure has been very difficult to control and it is currently creating difficulty getting his orthopedic surgeon to be able to perform a knee replacement that has been scheduled at least twice. This patient does not have any history of cardiac problems. He has had hypertension for more than 30 years and has been on numerous antihypertensives. He has seen consultants at [facility] back in 2016 who were suspicious of a hyper aldosterone is some state because of his resistant hypertension hypokalemia and some evidence of adrenal nodule/masseson imaging. He says that he saw a financial services education consultant at [facility] after that that discussed with him the option of surgical removal of a adrenal mass but it was fairly small and follow-up with medical therapy was recommended. The patient then went through a lot of stress/divorce and did not follow-up with anyof those physicians. He is currently taking a blood pressure regimen of amlodipine, hydralazine, lisinopril and metoprolol as well as a potassium supplement. He says that his knee surgery was canceled in December of 2023 because of hypokalemia after which he was placed on potassium. It was then canceled in February of 2024 because of hypertension. His electrocardiogram shows sinus rhythm with right b undle branch block and voltage evidence of left ventricular hypertrophy. He has never had an echocardiogram. 08/02/2024 office visit with BLOOD COORDINATOR: He had no perceived problems starting the spironolactone. He had the echocardiogram last week. He has been checking his blood pressure and pulse regularly at home andthe readings have ranged 130/86 to 154/87, pulse 64-75 bpm. He has no new complaints today. Specifically he denies any chest pain or shortness of breath. He wants to reschedule his knee surgery. Medical History: Past Medical History: Diagnosis Date Hypertension Past Surgical History: Procedure Laterality Date MENISCUS SURGERY Social History Tobacco Use Smoking Status Never Smokeless Tobacco Never Social History Tobacco Use Smoking status: Never Smokeless tobacco: Never Substance and Sexual Activity Drug use: None Sexual activity: None Alcohol Use: Not on file Family History Problem Relation Age of Onset Heart failure Mother Diabetes Mother Leukemia Father Review of Systems Constitutional: Negative for malaise/fatigue, weight gain and weight loss. Cardiovascular: Negative for chest pain, dyspnea on exertion, leg swelling, near-syncope, orthopnea, palpitations, paroxysmal nocturnal dyspnea and syncope. Respiratory: Negative for cough, shortness of breath and sleep disturbances due to breathing. Musculoskeletal: Positive for joint pain. Vital Signs: BP 140/82 (BP Location: Left arm, Patient Position: Sitting) Pulse 72 Ht 175.3 cm (5' 9 ) Wt 98 kg (216 lb) SpO2 99% BMI 31.90 kg/m?? Physical Exam Constitutional: General: He is not in acute distress. Appearance: He is well-developed. HENT: Head: Normocephalic and atraumatic. Eyes: General: No scleral icterus. Conjunctiva/sclera: Conjunctivae normal. Neck: Vascular: No JVD. Trachea: No tracheal deviation. Cardiovascular: Rate and Rhythm: Normal rate and regular rhythm. Heart sounds: Normal heart sounds. No murmur heard. Pulmonary: Effort: Pulmonary effort is normal. No respiratory distress. Breath sounds: Normal breath sounds. Skin: General: Skin is warm and dry. Neurological: Mental Status: He is alert and oriented to person, place, and time. Psychiatric: Mood and Affect: Mood normal. Behavior: Behavior normal. No Known Allergies Current Outpatient Medications: amLODIPine (NORVASC) 10 mg tablet, Take 1 tablet (10 mg total) by mouth every morning, Disp: , Rfl: hydrALAZINE (APRESOLINE) 50 mg tablet, Take 1 tablet (50 mg total) by mouth 3 (three) times a day, Disp: , Rfl: lisinopriL (PRINIVIL,ZESTRIL) 20 mg tablet, Take 1 tablet (20 mg total) by mouth daily, Disp: , Rfl: metoprolol XL (TOPROL-XL) 100 mg 24 hr tablet, Take 1 tablet (100 mg total) by mouth every morning,Disp: , Rfl: spironolactone (ALDACTONE) 50 mg tablet, TAKE 1 TABLET(50 MG) BY MOUTH DAILY, Disp: 30 tablet, Rfl:10 No results found for: POTASSIUM , BUNSER , CREATININE , EGFR , CHOL , TRIG , LDL , LDLCALC , HDL No results found for: WBC , HGB , HCT , MCV , PLT No results found for this or any previous visit (from the past 4 hours). No results found for: POCCHOL , POCHDL , POCTRIG , POCLDL , POCNONHDL , POCCHLPL Assessment: Diagnoses and all orders for this visit: Primary hypertension (Primary) LVH (left ventricular hypertrophy) Plan/Recommendations: Although some blood pressure readings are still elevated, overall blood pressure has improved with initiation of spironolactone. His echocardiogram was unremarkable aside from LVH which is an expected finding given his history of hypertension. I explained to LVH to the patient. I directed the patient to go to the lab for the BMP this morning. Once I have this result I can make further recommendation for him to proceed with his knee surgery. Patient verbalized understanding. Continue spironolactone, metoprolol, lisinopril, amlodipine and hydralazine the same. Plan follow-up with Dr. Mccormick in March of this year at which time he determine if ongoing follow-up with acardiologist is indicated or if PCP can assume prescribing the spironolactone. 08/02/2024 SHANNA Cole- Nurse Practitioner with [facility] Cardiology This note is dictated and transcribed using [employer] Software. Video Game Designer variancesmay occur. Despite proofreading, typographical errors may occur. documented in this encounter Plan of Treatment Not on file documented as of this encounter Visit Diagnoses Diagnosis Primary hypertension- Primary Unspecified essential hypertension LVH (left ventricular hypertrophy) Cardiomegaly documented in this encounter Care Teams Weekday Babysitter Relationship Specialty Start Date End Date Don Jones DO [address] [place] [address] PCP - General Family Medicine 02/19/24 documented as of this encounter
--- OUTSIDE RECORDS SUMMARY | 2024-08-02 09:46 | XMS_ITS | Clinical Summary ---
Author Organization [facility] [address] [facility] [address] Address [address] [place] [address] Care Team Providers Care Correctional Program Officer Name Role Phone Don Jones DO Primary [...] Secondary hypertension 03/26/2024 History of hyperaldosteronism 03/26/2024 Encounters Date Type Department Care Team Description 08/02/2024 8:00 AM CDT Office Visit [facility] Cardiology [address] [place] [address] Tesha Mascorro NP Primary hypertension (Primary Dx); LVH (left ventricular hypertrophy) 07/28/2024 Orders Only [facility] Health Information Management [address] [place] [id number] Monty Mccormick MD from Last 3 Months Surgical History Surgery Date Site/Laterality Comments MENISCUS [...] 08/02/2024 8:05 AM CDT Plan of Treatment Health Maintenance Due Date Last Done Comments Colon Cancer Screening-Colonoscopy 1960 Depression Screening 1960 Fall Risk Assessment 1960 Hepatitis C Screening 1960 Prostate Cancer Screening-PSA 1960 Hepatitis B Screening 1976 Zoster Vaccine (1 of 2) 2008 Pneumococcal vaccine 65+ (2 of 2 - PCV) 02/13/2018 02/13/2017 Well Visit 65+ 2023 Covid-19 Vaccine ( season) 01/25/202410/2020, 12/08/2020 Influenza Vaccine (#1) 2024 02/15/2015, 2013 DTaP/Tdap/Td Vaccine (4 - Td or Tdap) 10/02/2031 10/01/2021, 03/31/2014, 01/02/2013 Procedures Procedure Name Priority Date/Time Associated Diagnosis Comments CARDIOLOGY DOCUMENT SCAN 07/28/2024 from Last 3 Months Results * Cardiology Document Scan (07/28/2024) Anatomical Region Laterality Modality Other us Monty Mccormick MD CV CARDIAC SERVICES PROC EDURES Final Result from Last 3 Months Insurance [employer] MEDICARE WORKERS COMPENSATION GENERIC COMPENSATION Care Teams Correctional Program Officer Relationship Specialty Start Date End Date Don Jones DO [address] [place] [address] PCP - General Family Medicine 02/19/24
== END 2024-08-02 08:55 | disposition home or self-care (01) ==
PROVIDERS: PCP Family Medicine; Visit Provider Specialist
DX: I10 Essential (primary) hypertension (principal)
CPT/HCPCS: 36415; 80048

== ENCOUNTER 2024-08-16 13:54 | Outpatient (CLI) | payer OTHER, SELFPAY ==
[2024-08-16 15:26] LABS: Basophils Absolute Auto 0.1 K/mm3 (0.0-0.1); Basophils Percent Auto 0.6 % (0.2-1.2); Eosinophils Absolute Auto 0.2 K/mm3 (0-0.3); Eosinophils Percent Auto 1.4 % (0-4.4); Hematocrit 40.8 % (42.0-52.0); Hemoglobin 14.2 g/dL (14.0-18.0); Immature Granulocyte Absolute 0.21 K/mm3 (0.00-0.031); Immature Granulocyte Percent A 1.7 % (0-0.5); Lymphocytes Absolute Auto 2.49 K/mm3 (0.9-3.2); Lymphocytes Percent Auto 19.7 % (18.3-44.2); Mean Corpuscular HGB Conc 34.8 g/dl (32-36); Mean Corpuscular Hemoglobin 31.1 pg (26-34); Mean Corpuscular Volume 89.3 fl (80-100); Mean Platelet Volume 10.4 fl (7.4-10.4); Monocytes Percent Auto 7.8 % (2.6-8.5); Neutrophils Absolute Auto 8.7 K/mm3 (1.3-6.7); Neutrophils Percent Auto 68.8 % (45.5-73.1); Platelet Count Result 198 k/mm3 (150-375); Red Blood Count 4.57 M/mm3 (4.6-6.20); Red Cell Distribution Width 12.6 % (11.5-14.5); White Blood Count 12.6 K/mm3 (4.5-10.0)
[2024-08-16 15:38] LABS: Albumin Level 4.6 g/dL (3.5-5.1)
--- OUTSIDE RECORDS SUMMARY | 2024-08-16 15:59 | XMS_ITS | Referral Summary ---
Author Organization [facility] [address] [place] [address] Care Team Providers Care Senior C Software Engineer Name Role Phone Don Jones DO Primary Care Provider Encounters Date Type Department Care Team Description 08/03/2024 Telephone [facility] Medical [facility] Cardiology [address] [place] [address] [place] [phone] Monty Mccormick MD 08/03/2024 Telephone [facility] Cardiology [address] [place] [address] [place] [phone] Carlo Leach MA 08/02/2024 8:00 AM CDT Office Visit [facility] Cardiology [address] [place] [address] [place] [phone] Tesha Mascorro NP Primary hypertension (Primary Dx); LVH (left ventricular hypertrophy) 07/28/2024 Orders Only [facility] Health Information Management [address] [place] [id number] Monty Mccormick MD from Last 3 Months [...] Procedure Name Priority Date/Time Associated Diagnosis Comments POCT LIPID PANEL Routine 08/02/2024 8:07 AM CDT Primary hypertension LVH (left ventricular hypertrophy) BASIC METABOLIC PANEL Routine 08/02/2024 Primary hypertension CARDIOLOGY DOCUMENT SCAN 07/28/2024 from Last 3 Months Results * POCT lipid panel (08/02/2024 8:07 AM CDT) HDL, POC 36 mg/dL Triglycerides, POC 155 mg/dL LDL Cholesterol POC 114 mg/dL Chol/HDL Ratio, POC 3.1 Non-HDL Cholesterol, POC 145 mg/dL Cholesterol Total, POC 182 mg/dL Capillary blood 08/02/2024 8 :07 AM CDT Tesha Mascorro NP POINT OF CARE TEST ORDERA HEMANT Edited Result - Final * Basic metabolic panel (08/02/2024) Blood 08/02/2024 Monty Mccormick MD LAB BLOOD ORDERABLES Fin al Result EXTERNAL LAB * Cardiology Document Scan (07/28/2024) Anatomical Region Laterality Modality Other Monty Mccormick MD CV CARDIAC SERVICES PROC EDURES Final Result from Last 3 Months Insurance [employer] MEDICARE WORKERS COMPENSATION GENERIC COMPENSATION Care Teams Senior C Software Engineer Relationship Specialty Start Date End Date Don Jones DO [address] [place] [address] PCP - General Family Medicine 02/19/24
--- OUTSIDE RECORDS SUMMARY | 2024-08-16 15:59 | XMS_ITS | Encounter Summary ---
Author Organization [employer] [facility] Address [address] [place] [address] Care Team Providers Care Squad Leader Name Role Phone Jaiden Owens MD Primary Care Provider [phone] Encounter Details Date Type Department Care Team (Late st Contact Info) Description 10/31/2014 Chart Note [facility] Services [address] [place] [address] Kitty Daniel, Physical Therapist Social History Tobacco Use Types Packs/Day Years Used Date Smoking Tobacco: Never Alcohol Use Standard Drinks/Week Comments Not Asked 0 (1 standard drink = 0.6 oz pur e alcohol) Sex and Gender Information Value Date Recorded Sex Assigned at Not on file Legal Sex Male 2:53 AM GAUGER DELIVERY Gender Identity Not on file Sexual Orientation [...] you for this referral. Kitty Daniel, SABRINA [facility] [employer] [address] [facility], [address] [place] [address] (phone) [phone] (fax) documented in this encounter Plan of Treatment Not on file documented as of this encounter Visit Diagnoses Not on filedocumented in this encounter Care Teams Squad Leader Relationship Specialty Start Date End Date Jaiden Owens MD PCP - General Family Practice 12/24/19 documented as of this encounter
--- OUTSIDE RECORDS SUMMARY | 2024-08-16 15:59 | XMS_ITS | Encounter Summary ---
Author Organization [employer] Address [address] [place] [address] Care Team Providers Care Construction Flagger Name Role Phone Jaiden Owens MD Primary Care Provider Encounter Details Date Type Department Care Team (Late st Contact Info) Description 03/26/2005 Outpatient Historical [facility] Jay Lopez MD [facility] [place] [address] Er, Authorized P NO ADDRESS ON FILE SPRAIN OF ANKLE NOS (Primary Dx) Social History Tobacco Use Types Packs/Day Years Used Date Smoking Tobacco: Never Assessed Sex and Gender Information Value Date Recorded Sex Assigned at Not on file Legal Sex Male 2:53 AM OIL AND GAS FIELD TECHNICIAN Gender Identity Not on file Sexual Orientation Not on file documented as of this encounter Plan of Treatment Not on file documented as of this encounter Visit Diagnoses Diagnosis Sprain of ankle, unspecified site- Primary documented in this encounter Care Teams Construction Flagger Relationship Specialty Start Date End Date Jaiden Owens MD PCP - General Family Practice 12/24/19 documented as of this encounter
--- OUTSIDE RECORDS SUMMARY | 2024-08-16 15:59 | XMS_ITS | Clinical Summary ---
Author Organization [facility] Address [address] [place] [address] Care Team Providers Care Asbestos Removal Supervisor Name Role Phone Jaiden Owens MD Primary Care Provider [phone] Allergies No known active allergies Medications fluticasone propionate (FLONASE) 50 mcg/spray [place], Suspension nasal inhalerIndication s:Common cold Administer 2 [...] on file Legal Sex Male 2:53 AM SUPERVISOR PIPE MANUFACTURE Gender Identity Not on file Sexual Orientation Not on file Last Filed Vital Signs Vital Sign Reading Time Taken Comments Blood Pressure 168/98 04/13/2020 2:01 PM SUPERVISOR PIPE MANUFACTURE Pulse 79 04/13/2020 2:01 PM SUPERVISOR PIPE MANUFACTURE Temperature 36.7 C (98 F) 04/13/2020 2:01 PM SUPERVISOR PIPE MANUFACTURE Respiratory Rate 18 04/13/2020 2:01 PM SUPERVISOR PIPE MANUFACTURE Oxygen Saturation 97% 04/13/2020 2:01 PM SUPERVISOR PIPE MANUFACTURE Inhaled Oxygen Concentration - - Weight 88 kg (194 lb) 04/13/2020 2:01 PM SUPERVISOR PIPE MANUFACTURE Height 175.3 cm (5' 9 ) 04/13/2020 2:01 PM SUPERVISOR PIPE MANUFACTURE Body Mass Index 28.65 04/13/2020 2:01 PM SUPERVISOR PIPE MANUFACTURE Plan of Treatment Health Maintenance Due Date [...] - 1-dose 75+ series) 2033 Care Teams Asbestos Removal Supervisor Relationship Specialty Start Date End Date Jaiden Owens MD PCP - General Family Practice 12/24/19
--- OUTSIDE RECORDS SUMMARY | 2024-08-16 15:59 | XMS_ITS | Clinical Summary ---
Author Organization [facility] Address [facility] [place] [address] Care Team Providers Care Contact Assembler Name Role Phone None, Provider MD Primary [...] to complete this topic Insurance Care Teams Contact Assembler Relationship Specialty Start Date End Date None, Provider, PCP - General 10/01/21
--- OUTSIDE RECORDS SUMMARY | 2024-08-16 15:59 | XMS_ITS | Clinical Summary ---
Author Organization [facility] [address] [place] [address] [address] [facility] [address] [place] [address] Care Team Providers Care Shot Lighter Name Role Phone Don Jones Primary Care Provider Allergies No known active [...] Type Department Care Team Description 08/03/2024 Telephone [facility] Cardiology [address] [facility] [address] [place] [address] Monty Mccormick MD 08/03/2024 Telephone [facility] Cardiology [address] [facility] [address] [place] [address] Carlo Leach MA 08/02/2024 8:00 AM CDT Office Visit [facility] Cardiology [address] [facility] [address] [place] [address] Tesha Mascorro NP Primary hypertension (Primary Dx); LVH (left ventricular hypertrophy) 07/28/2024 Orders Only [facility] Health Information Management [address] [place] [address] Monty Mccormick MD from Last 3 Months [...] Mascorro NP POINT OF CARE TEST ORDERA BLES Edited Result - Final * Basic metabolic panel (08/02/2024) Blood 08/02/2024 Monty Mccormick MD LAB BLOOD ORDERABLES Fin al Result EXTERNAL LAB * Cardiology Document Scan (07/28/2024) Anatomical Region Laterality Modality Other Monty Mccormick MD CV CARDIAC SERVICES PROC EDURES Final Result from Last 3 Months Insurance [employer] MEDICARE WORKERS COMPENSATION GENERIC COMPENSATION Care Teams Shot Lighter Relationship Specialty Start Date End Date Don Jones DO [address] [place] [address] PCP - General Family Medicine 02/19/24
[2024-08-16 16:20] LABS: Urine Cotinine NEGATIVE
[2024-08-16 16:39] LABS: MRSA (PCR) NOT DETECTED (NOT DETECTE)
== END 2024-08-16 13:55 | disposition home or self-care (01) ==
PROVIDERS: PCP Family Medicine; Visit Provider Orthopaedic Surgery
DX: M17.11 Unilateral primary osteoarthritis, right knee (principal); Z01.818 Encounter for other preprocedural examination
CPT/HCPCS: 80307; 82040; 83036; 85025; 86850; 86900; 86901; 87641

== ENCOUNTER 2024-08-25 01:18 | Day surgery (SDC) | payer OTHER, SELFPAY ==
--- NOTE | 2024-08-16 14:02 | PC.NURSE ---
Report to the Outpatient Waiting Room, entrance under the green pavilion located off [facility], at time _6 AM on date __08/25/24 . Planned Procedure Time: __7:30 AM .? Time changes happen often and if your time is changed the preop area will call you the afternoon before. - You and your visitor will be asked to self-screen and do not enter if you have any COVID symptoms. Please call surgeon if you need to reschedule. - A mask is optional within the hospital at this time. Patients may have clear liquids (water, carbonated beverages, clear teas, apple juice) until 3 hours prior to surgery ( 4:30 AM) with a maximum of 20 ounces. - No food from midnight until time of surgery and no smoking, or chewing tobacco (or any form of nicotine). No chewing gum, candy or mints. - Take only the following medications with a SIP of water on the morning of surgery: ____AMLODIPINE,HYDRALAZINE,METOPROLOL DO NOT STOP ANY OF YOUR OTHER PRESCRIPTION MEDICATIONS PRIOR TO SURGERY EXCEPT THE FOLLOWING Hold all vitamins and supplements for 3 days per anesthesiologist.LAST DOSE Medications to discontinue per physician ____IBUPROFEN PER DR FONTANEZ _ Please no make-up, nail prydeinig, hairspray, perfume, deodorant, or body powder the day of surgery.? No jewelry (including any body piercings) or valuables the day of surgery, leave them at home.? Please take a shower or bath the night before, or the morning of, surgery with an antibacterial soap.? Wear comfortable, loose fitting clothing.? Children are encouraged to wear pajamas. - Jewelry must be removed prior to entering the operating room.? Rings and piercings that are not removed may be cut off. - The hospital will not accept responsibility for valuables.? - Please leave all valuables, including medications, at home the day of surgery. If you are going home after surgery, a licensed delivery driver/supervisor must drive you home.? - NO public transportation without another adult if you receive anesthesia. - We recommend that an adult stay with you for 24 hours following discharge. - We also recommend that you do not drive, make important decision, drink alcoholic beverages, or take any drugs that were not prescribed by your health care provider for at least 24 hours after your discharge time. Follow any additional instructions given to you from your surgeon. VERBAL AND WRITTEN instructions given to __PATIENT and asked if any additional questions and then verbalized understanding. Patient advised to call surgeon office or pre surgery nurse liaison [phone] if any additional questions.
[2024-08-16 14:12] VITALS: BMI 32.1
[2024-08-16 15:01] VITALS: BP 150/96; PULSE 69; RESP 18; TEMP 36.8; O2SAT 98
--- NOTE | 2024-08-24 11:18 | P.HP_ITS ---
H&P: HPI History of Present Illness Date/Time: 08/24/24 11:18 Chief Complaint: Patient has right knee pain. He has ocde-es-spxc arthritis right knee osteoarthritis. He has failed conservative treatment consisting of medicine therapy cortisone exercise and even an arthroscopy. Unfortunately continues to hurt. They became symptomatic after an injury at work and I have been unable to settle it down. He would like to proceed with knee replacement surgery. Review of Systems Musculoskeletal: Musculoskeletal: Reports arthralgias, Reports joint swelling and Reports stiffness Neurologic: Reports abnormal gait [facility] Past Medical History Medical History ESTHER (generalized anxiety disorder) HLD (hyperlipidemia) HTN (hypertension) Surgical History Surgical History History of arthroscopy of right knee 06/19/23 History of cholecystectomy Family History Family History Father Leukemia Mother Neuropathy Hypotension Social History Social History (Updated 08/10/24 @ 08:20 by Fatmata Odell CMA) Smoking packs per day: 0.2 Smoking cigarettes per day: 4.0 Years smoked: 3 Smoking pack-years: 0.60 Smoking status: Never smoker Tobacco type: cigarettes Smoking end date: 11/24/79 Additional smoking assessment comments: DENIES ANY FORM OF TOBACCO USE Alcohol intake: current Drinks per week: 1 Alcohol use details: 3/MONTH Substance use: never Substance use type: does not use Do You Feel Safe in your Home?: Yes Lack of Transportation: No Lack of Food: Never True Current Housing: I Have Housing Concerned About Future Housing: No Difficulty Paying Gas/Electric Bills: YES Difficulty Paying for Meds: No Currently Unemployed: No Education: High School Diploma/GED Difficulty w/ Childcare or Family Care: No Living arrangements: alone Occupation/Education: occupation Additional occupation/education comments: [employer]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 Gender identity (if verbalized by the patient): Male Spiritual care concerns: No Meds Home Medications and Allergies Home Medications ?Medication ?Instructions ?Recorded ?Confirmed ?Type amlodipine 10 mg tablet See Rx Instructions .Route 04/13/24 08/16/24 Rx .COMPLEX #90 tabs metoprolol succinate 100 mg See Rx Instructions .Route 04/13/24 08/16/24 Rx tablet,extended release 24 hr .COMPLEX #90 tabs hydralazine 50 mg tablet 50 mg PO TID #90 tabs 07/30/24 08/16/24 Rx spironolactone 50 mg tablet 50 mg PO DAILY #30 tabs 08/02/24 08/16/24 Rx lisinopril 20 mg tablet 20 mg PO DAILY #90 tabs 08/11/24 08/16/24 Rx ibuprofen 200 mg tablet (Advil) 400 mg PO PRN PAIN 08/16/24 08/16/24 History pksdmoqx-wk-gywrj 300 mcg-K 60 1 tablet PO DAILY 08/16/24 08/16/24 History mcg-lycop 600 mcg-lutein 300 mcg tablet (Centrum Silver Men) Allergies Allergy/AdvReac Type Severity Reaction Status Date / Time hydrocodone (From Vicodin) AdvReac Unknown ANXIETY, Verified 08/16/24 14:21 makes me feel weird Exam Narrative: On exam he is motion 3 to 110?. Mild varus deformity. Grinding crepitus and pain with manipulation. Neurologically he is intact. He walks with an antalgic gait. He has pain with any manipulation. Eyes: General: appearance normal, both eyes and all related structures Neck: Neck: supple Resp: Effort & Inspection: normal respiratory effort Cardio: Rate: regular rate Rhythm: regular rhythm Knee X-Ray 09/18/23 Knee MRI 02/10/23 Orthopedics Result Report 09/18/23 Assessment and Plan Assessment and plan (1) Osteoarthritis of knees, bilateral: Code(s): M17.0 - Bilateral primary osteoarthritis of knee Status: Acute Assessment and Plan: Patient has arthritis right knee. He has failed conservative treatment like to proceed with knee replacement surgery. I discussed risks benefits limitations and alternatives in detail. I told the success rate is probably over 90% but nothing is 100%. We will proceed with knee replacement surgery per his request. He understands and agrees.
[2024-08-25] VITALS (16 sets, daily range): BP systolic 90–151; BP diastolic 59–81; PULSE 61–74; RESP 12–20; TEMP 36.1–36.8; O2SAT 91–99; BMI 31.6
--- NOTE | ~2024-08-25 | XR_ITS ---
EXAMINATION: [id number] DATE: 08/25/2024 10:51 INDICATION: Postoperative evaluation following right total knee arthroplasty. TECHNIQUE: Anteroposterior and lateral views of the right knee were obtained. COMPARISON: None. FINDINGS: Right total knee arthroplasty with patellar resurfacing appears well seated and in near anatomic alig nment. No fractures identified. Anterior skin yessica and expected postoperative subcutaneous, intra medullary and intra-articular gas. IMPRESSION: 1. Right total knee arthroplasty, negative for postoperative purposes. Reviewed, dictated and finalized at location A.
--- OUTSIDE RECORDS SUMMARY | 2024-08-25 01:21 | XMS_ITS | Clinical Summary ---
Author Organization [facility] [address] [place] [address] [address] [facility] [address] [place] [address] Care Team Providers Care Chief Service Observer Name Role Phone Don Jones Primary Care [...] Type Department Care Team Description 08/03/2024 Telephone [facility] Cardiology [address] [facility] [address] [place] [address] Monty Mccormick MD 08/03/2024 Telephone [facility] Cardiology [address] [facility] [address] [place] [address] Carlo Leach MA 08/02/2024 8:00 AM CDT Office Visit [facility] Cardiology [address] [facility] [address] [place] [address] Tesha Mascorro NP Primary hypertension (Primary Dx); LVH (left ventricular hypertrophy) 07/28/2024 Orders Only [facility] Health Information Management [address] [place] [address] Monty Mccormick MD from Last 3 Months [...] MEDICARE WORKERS COMPENSATION GENERIC COMPENSATION Care Teams Chief Service Observer Relationship Specialty Start Date End Date Don Jones DO [address] [place] [address] PCP - General Family Medicine 02/19/24
--- OUTSIDE RECORDS SUMMARY | 2024-08-25 01:21 | XMS_ITS | Referral Summary ---
Author Organization [place] [address] [address] [place] [phone] Care Team Providers Care Care Director Rn Name Role Phone Don Jones DO Primary Care Provider Encounters Date Type Department Care Team Description 08/03/2024 Telephone [facility] Medical [facility] Cardiology [address] [place] [address] [place] [phone] Mnoty Mccormick MD 08/03/2024 Telephone [facility] Cardiology [address] [place] [address] [place] [phone] Carlo Leach MA 08/02/2024 8:00 AM CDT Office Visit [facility] Cardiology [address] [place] [address] [place] [phone] Tesha Mascorro NP Primary hypertension (Primary Dx); LVH (left ventricular hypertrophy) 07/28/2024 Orders Only [facility] Health Information Management [address] [place] [id number] Monty Mccormick MD from Last 3 [...] Final Result from Last 3 Months Insurance [employer] MEDICARE WORKERS COMPENSATION GENERIC COMPENSATION Care Teams Care Director Rn Relationship Specialty Start Date End Date Don Jones DO [address] [place] [address] PCP - General Family Medicine 02/19/24
--- OUTSIDE RECORDS SUMMARY | 2024-08-25 01:21 | XMS_ITS | Clinical Summary ---
Author Organization [facility] Address [facility] [place] [address] Care Team Providers Care Tripe Scraper Name Role Phone None, Provider MD Primary [...] - 2023-2 5 season) 2024 12/29/2020, 12/08/2020 DTaP, Tdap and Td Vaccines ( 4 [...] patient's age to complete this topic Insurance [facility] Care Teams Tripe Scraper Relationship Specialty Start Date End Date None, Provider, PCP - General 10/01/21
--- OUTSIDE RECORDS SUMMARY | 2024-08-25 01:21 | XMS_ITS | Encounter Summary ---
Author Organization [facility] Address [address] [place] [address] Care Team Providers Care Light Rail Signal Technician Name Role Phone Jaiden Owens MD Primary Care Provider [phone] Encounter Details Date Type Department Care Team (Late st Contact Info) Description 10/31/2014 Chart Note [facility] Therapy Services [id number] [place] [address] Kitty Daniel, Physical Therapist Social History Tobacco Use Types Packs/Day Years Used Date Smoking Tobacco: Never Alcohol Use Standard Drinks/Week Comments Not Asked 0 (1 standard drink = 0.6 oz pur e alcohol) Sex and Gender Information Value Date Recorded Sex Assigned at Not on file 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 Kitty Daniel, SABRINA [facility] [address] [facility], [address] [place] [address] (phone) [phone] (fax) documented in this encounter Plan of Treatment Not on file documented as of this encounter Visit Diagnoses Not on filedocumented in this encounter Care Teams Light Rail Signal Technician Relationship Specialty Start Date End Date Jaiden Owens MD PCP - General Family Practice 12/24/19 documented as of this encounter
--- OUTSIDE RECORDS SUMMARY | 2024-08-25 01:21 | XMS_ITS | Encounter Summary ---
Author Organization [facility] Address [address] [place] [address] Care Team Providers Care Patch Driller Name Role Phone Jaiden Owens MD Primary Care Provider Encounter Details Date Type Department Care Team (Late st Contact Info) Description 03/26/2005 Outpatient Historical [facility] Jay Lopez MD [facility] [place] [address] Er, Authorized P NO ADDRESS ON FILE SPRAIN OF ANKLE NOS (Primary Dx) Social History Tobacco Use Types Packs/Day Years Used Date Smoking Tobacco: Never Assessed Sex and Gender Information Value Date Recorded Sex Assigned at Not on file 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
--- OUTSIDE RECORDS SUMMARY | 2024-08-25 01:22 | XMS_ITS | Clinical Summary ---
Author Organization [facility] Address [address] [place] [address] Care Team Providers Care Debeader Name Role Phone Jaiden Owens MD Primary Care Provider [phone] Allergies No known active allergies Medications fluticasone propionate (FLONASE) 50 mcg/spray [place], Suspension nasal inhalerIndication s:Common cold Administer 2 [...] on file Legal Sex Male 2:53 AM MANAGER R D Gender Identity Not on file Sexual Orientation Not on file Last Filed Vital Signs Vital Sign Reading Time Taken Comments Blood Pressure 168/98 04/13/2020 2:01 PM MANAGER R D Pulse 79 04/13/2020 2:01 PM MANAGER R D Temperature 36.7 C (98 F) 04/13/2020 2:01 PM MANAGER R D Respiratory Rate 18 04/13/2020 2:01 PM MANAGER R D Oxygen Saturation 97% 04/13/2020 2:01 PM MANAGER R D Inhaled Oxygen Concentration - - Weight 88 kg (194 lb) 04/13/2020 2:01 PM MANAGER R D Height 175.3 cm (5' 9 ) 04/13/2020 2:01 PM MANAGER R D Body Mass Index 28.65 04/13/2020 2:01 PM MANAGER R D Plan of Treatment Health Maintenance Due Date [...] - 1-dose 75+ series) 2033 Care Teams Debeader Relationship Specialty Start Date End Date Jaiden Owens MD PCP - General Family Practice 12/24/19
[2024-08-25] MEDS: VANCOMYCIN 1,500 MG/NS 500 ML BAG 250 MG IVPB (06:43)
[2024-08-25] MEDS: LACTATED RINGERS 1,000 ML 30 ML IV CONT ×2 (06:43→10:12)
[2024-08-25] MEDS: ACETAMINOPHEN 500 MG TABLET 1000 MG PO (06:44)
--- NOTE | 2024-08-25 06:51 | WPDHPUPDATE1 ---
History and Physical Update Update Date/Time: 08/25/24 06:51 History and Physical has been reviewed, including an updated exam of the patient. There are NO changes in the patient's condition. Risks, benefits, and alternatives have been discussed and questions answered. Patient agrees to proceed with procedure.
[2024-08-25] MEDS: TRANEXAMIC ACID 1,000MG/ISO100 1,000 MG/100 ML BAG 200 MG IVPB (07:07)
--- NOTE | 2024-08-25 07:12 | P.PNAN_ITS ---
Anes - Initial Pre Proc Eval Procedure: Operation Date: 08/25/24 07:30 Proposed Procedures p Right Total Knee Arthroplasty - Jaspal Singh MD Date/Time: 08/25/24 07:12 Surgeon: Jaspal Singh MD Pre Op Diagnosis: OA right knee Patient Data Age: 64 Gender: M Height: 1.75 m Weight: 98.7 kg Last Vital Signs Temp 98.2 F 08/16/24 15:01 Pulse 69 08/16/24 15:01 Resp 18 08/16/24 15:01 BP 150/96 H 08/16/24 15:01 Pulse Ox 98 08/16/24 15:01 O2 Del Method Room Air 08/16/24 15:01 Allergies Allergy/AdvReac Type Severity Reaction Status Date / Time hydrocodone (From Vicodin) AdvReac Unknown ANXIETY, Verified 08/25/24 06:27 makes me feel weird Home Medications ?Medication ?Instructions ?Recorded ?Confirmed ?Type amlodipine 10 mg tablet See Rx Instructions .Route 04/13/24 08/25/24 Rx .COMPLEX #90 tabs metoprolol succinate 100 mg See Rx Instructions .Route 04/13/24 08/25/24 Rx tablet,extended release 24 hr .COMPLEX #90 tabs hydralazine 50 mg tablet 50 mg PO TID #90 tabs 07/30/24 08/25/24 Rx spironolactone 50 mg tablet 50 mg PO DAILY #30 tabs 08/02/24 08/25/24 Rx lisinopril 20 mg tablet 20 mg PO DAILY #90 tabs 08/11/24 08/25/24 Rx ibuprofen 200 mg tablet (Advil) 400 mg PO PRN PAIN 08/16/24 08/16/24 History dfhnjlvm-od-oorsm 300 mcg-K 60 1 tablet PO DAILY 08/16/24 08/16/24 History mcg-lycop 600 mcg-lutein 300 mcg tablet (Centrum Silver Men) Patient hx anesthesia problems: none Family hx anesthesia problems: none Results Review: All pre-operative results and documents have been reviewed as part of the pre- operative evaluation. [facility] Past Medical History Medical History ESTHER (generalized anxiety disorder) HLD (hyperlipidemia) HTN (hypertension) Surgical History Surgical History History of arthroscopy of right knee 06/19/23 History of cholecystectomy Family History Family History Father Leukemia Mother Neuropathy Hypotension Social History Social History Smoking packs per day: 0.2 Smoking cigarettes per day: 4.0 Years smoked: 3 Smoking pack-years: 0.60 Smoking status: Never smoker Tobacco type: cigarettes Smoking end date: 11/24/79 Additional smoking assessment comments: DENIES ANY FORM OF TOBACCO USE Alcohol intake: current Drinks per week: 1 Alcohol use details: 3/MONTH Substance use: never Substance use type: does not use Do You Feel Safe in your Home?: Yes Lack of Transportation: No Lack of Food: Never True Current Housing: I Have Housing Concerned About Future Housing: No Difficulty Paying Gas/Electric Bills: YES Difficulty Paying for Meds: No Currently Unemployed: No Education: High School Diploma/GED Difficulty w/ Childcare or Family Care: No Living arrangements: alone Occupation/Education: occupation Additional occupation/education comments: [employer]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 ) class II Neurological: alert and oriented Last oral intake: >/= 8 hours ASA classification: III Emergent: no Anesthetic plan: proceed Anesthesia type and monitoring: general LMA and standard monitoring Results Review: All pre-operative results and documents have been reviewed as part of the pre- operative evaluation. HTN, obesity, longstanding RBBB. Informed Consent: The patient's anesthetic plan and its attendant risks and benefits were discussed with the patient/family/POA. Questions were solicited and answers provided to the satisfaction of the patient/family/POA.
--- NOTE | 2024-08-25 07:29 | WPDANESPNB ---
Anes - Peripheral Nerve Block Date/Time: 08/25/24 07:29 I have discussed with the patient/family/POA the placement of a peripheral nerve block for post-operative pain management, including associated risks, benefits, complications, and side effects. Alternative methods of post-operative analgesia were detailed. Questions were solicited and answers provided to the satisfaction of the patient/family/POA. Time-Out: A pre-procedural Time-Out was completed immediately before starting the procedure and confirmed: Patient Identification, Site, Procedure, Patient Position and the Availability of Requisite Equipment. Clinical Indications: Acute post-operative pain management requested by the operative surgeon. Nerve Block Insertion Note Anes-nerve block: adductor canal right Patient position: supine Skin prep: chlorhexidine Needle: 22 gauge, stimulating, insulated echogenic needle. Needle length: 80 mm Technique: ultrasound Injectate: other (Bupiv 0.5% 17 mls. ) Observations: tolerated well Complications: none Procedure start time:: 723 Procedure end time:: 729
[2024-08-25] MEDS: ceFAZolin 2 GM/D5W 50 ML 2 GM/50 ML BAG IVPB ×3 (07:45→23:06)
[2024-08-25] MEDS: SODIUM CHLORIDE 0.9% IV 38.7 ML, ROPivacaine HCL 1% 200 MG, KETOROLAC INJ (*BKC) 15 MG,... INFILTRATE (08:31)
[2024-08-25] MEDS: TRANEXAMIC ACID 1,000 MG/10 ML AMPUL 1000 MG IV PUSH (09:38)
--- NOTE | 2024-08-25 09:39 | P.OP_ITS ---
Procedure Note - Detailed Date of Procedure 08/25/24 Pre-op Diagnosis Osteoarthritis right knee Post-op Diagnosis Same Procedure Performed RIGHT Total Knee arthroplasty Surgeon Jaspal Singh MD [employer] Fre[employer] Liya Huber Anesthesia General Indications Pain and Arthritis Description of Procedure The patient was brought to operating room #7. A general anesthetic was administered. Placed on the operating table and sterilely prepped and draped in usual manner. A longitudinal incision was made. Tourniquet inflated to 300 mmHg for a total of 80 minutes. Dissection was carried down to the fascia. Medial parapatellar incision was made and the patella subluxated laterally. Patella cut from 23 to 15 mm. The knee was noted be quite stiff I particularly difficult time everting the patella. The with the initial cuts were made he opened a bit laterally. Head size change from cruciate retaining to posterior stabilized to eliminate the opening. The tibia was cut perpendicular to the long axis and femur cut in 5 degrees of valgus. The components were trialed and the knee was noted to be stable with excellent motion. The soft tissues balanced, hemostasis obtained. All [address], 67 tibia, 62.5 PS femur, 34 mm patella, and 12+ mm poly. Motion was 0-125 degrees with good stability in both flexion and extension. The wound was closed with #2 Vicryl, 2-0 Vicryl and yessica. [employer] Estimated Blood Loss 200 Drains No Packing No Pathology None sent Complications No immediate complications Condition Stable Disposition PACU [facility] Billing Surgery - Charge Forward: Surgery Billing ([id number] Total Knee)
[2024-08-25] MEDS: ONDANSETRON INJ 4 MG/2 ML VIAL IV PUSH (10:48)
[2024-08-25] MEDS: fentaNYL CITRATE INJ (*CRX) 100 MCG/2 ML VIAL 25 MCG IV PUSH ×2 (11:08→11:10)
[2024-08-25] MEDS: SODIUM CHLORIDE 0.9% IV 1,000 ML 125 ML IV CONT (12:00)
--- NOTE | 2024-08-25 13:22 | ADMGEN ---
This patient, Franklyn Mccormack, was admitted to [facility] Surg Room 303-01. Patient/family oriented to hospital policies and general routines including ID bracelet, bed and alarms, visiting hours, pain management, procedures, bathroom and other care routines, personal items, smoking policy, room service/diet, and visiting hours. Information on how to activate the Rapid Response Team has been discussed. Patient/Family are encouraged to report perceived risks to care and to ask questions if they do not understand what they are told or what they should do.
[2024-08-25] MEDS: HYDROcodone/acetaminophen (*CRX) 7.5-325 MG TABLET 1 TAB PO ×2 (13:34→18:58)
--- NOTE | 2024-08-25 14:52 | PM.IMCN ---
Assessment and Plan Assessment and plan (1) Osteoarthritis of knees, bilateral: Qualifiers: Osteoarthritis type: unspecified Qualified Code(s): M17.0 - Bilateral primary osteoarthritis of knee Code(s): M17.0 - Bilateral primary osteoarthritis of knee Status: Acute Assessment and Plan: Underwent a total right knee arthroplasty on 08/25 with Francisco ROCA. Primary management through orthopedic team. - ambulate with assistance and up to chair - use IS - neurovasc checks - see order for intervals - SCDs - analgesics and antiemetics p.r.n. - monitor labs in AM - CBC and BMP - bowel regimen: docusate/senna, polyethylene glycol - PT/OT evaluation and treatment (2) HTN (hypertension): Qualifiers: Hypertension type: primary hypertension Qualified Code(s): I10 - Essential (primary) hypertension Code(s): I10 - Essential (primary) hypertension Status: Chronic Assessment and Plan: - chronic, currently 134/74 - continue home medications: lisinopril, metoprolol ER, spironolactone, amlodipine, hydralazine - monitor Plan Diet: Regular GI Prophylaxis: Not currently indicated DVT Prophylaxis: SCDs, starting Xarelto Lines: Peripheral Code Status: Full code HPI Date of Consult Consult date: 08/25/24 Requesting Physician: Jaspal Singh MD Primary Care Provider: Don Jones DO Consult Narrative Reason for consult: Medical Management Narrative: 64 y/o M with PMH of hypertension, hyperlipidemia, anxiety presents here for surgical management of his right knee osteoarthritis. The patient has had chronic right knee pain since 2022. He has previously underwent conservative treatment including NSAIDs, cortisone injections, exercise, and arthroscopy (06/21). Last cortisone injection in Jun. Pain in the patient's right knee was precipitated by an injury at his occupation, he was carrying equipment up two flights of stairs and felt a pop with immediate pain. Since injury, pain has not resolved with the aforementioned measures. Due to these factors, the patient elected to move forward with surgical management. He underwent a right total knee arthroplasty on 08/25 with Francisco ROCA. Postoperatively he reports a moderate amount of pain/burning to his RLE with some paraesthesias. He denies any recent changes to his home medications or medical history. No further concerns at this time. Preop VS: 98.2? F, HR 69, R 18, 150/96, and 98% on RA. Preop workup: WBC 12.6, no anemia, creatinine 1.18 and GFR >60, A1c 5.0%. MRSA PCR negative. Review of Systems Review of Systems: All systems reviewed & are unremarkable except as noted in HPI and below PMFSH Past Medical History Medical History Anxiety MDD (major depressive disorder) Kidney stones BPH (benign prostatic hyperplasia) ESTHER (generalized anxiety disorder) HLD (hyperlipidemia) HTN (hypertension) Surgical History Surgical History History of total knee arthroplasty Right, 08/25/2024 History of arthroscopy of right knee 06/19/23, meniscus repair History of cholecystectomy Family History Family History Father Leukemia Mother Neuropathy Hypotension Social History Social History Smoking packs per day: 0.2 Smoking cigarettes per day: 4.0 Years smoked: 3 Smoking pack-years: 0.60 Smoking status: Never smoker Tobacco type: cigarettes Smoking end date: 11/24/79 Additional smoking assessment comments: DENIES ANY FORM OF TOBACCO USE Alcohol intake: current Drinks per week: 1 Alcohol use details: 3/MONTH Substance use: never Substance use type: does not use Do You Feel Safe in your Home?: Yes Lack of Transportation: No Lack of Food: Never True Current Housing: I Have Housing Concerned About Future Housing: YES Difficulty Paying Gas/Electric Bills: No Difficulty Paying for Meds: YES Currently Unemployed: No Education: Decline to Answer Difficulty w/ Childcare or Family Care: No Living arrangements: alone Occupation/Education: occupation Additional occupation/education comments: [employer]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 Gender identity (if verbalized by the patient): Male Spiritual care concerns: No Meds Home Medications and Allergies Home Medications ?Medication ?Instructions ?Recorded ?Confirmed ?Type amlodipine 10 mg tablet See Rx Instructions .Route 04/13/24 08/25/24 Rx .COMPLEX #90 tabs metoprolol succinate 100 mg See Rx Instructions .Route 04/13/24 08/25/24 Rx tablet,extended release 24 hr .COMPLEX #90 tabs hydralazine 50 mg tablet 50 mg PO TID #90 tabs 07/30/24 08/25/24 Rx spironolactone 50 mg tablet 50 mg PO DAILY #30 tabs 08/02/24 08/25/24 Rx lisinopril 20 mg tablet 20 mg PO DAILY #90 tabs 08/11/24 08/25/24 Rx ibuprofen 200 mg tablet (Advil) 400 mg PO PRN PAIN 08/16/24 08/16/24 History rezdeifu-xq-icivr 300 mcg-K 60 1 tablet PO DAILY 08/16/24 08/16/24 History mcg-lycop 600 mcg-lutein 300 mcg tablet (Centrum Silver Men) Allergies Allergy/AdvReac Type Severity Reaction Status Date / Time hydrocodone (From Vicodin) AdvReac Unknown ANXIETY, Verified 08/25/24 13:32 makes me feel weird Vital Signs Vital Signs - 24 hr 08/25/24 06:20 08/25/24 10:12 08/25/24 10:25 Temperature 98.2 F 97.9 F Pulse Rate 74 66 65 Respiratory Rate 14 16 16 Blood Pressure 151/80 H 90/59 L 103/65 Pulse Oximetry 97 91 93 Oxygen Delivery Room Air Simple Face Mask Simple Face Mask Oxygen Flow Rate 8 8 08/25/24 10:28 08/25/24 10:40 08/25/24 10:50 Temperature Pulse Rate 69 Respiratory Rate 20 Blood Pressure 107/65 Pulse Oximetry 93 96 95 Oxygen Delivery Simple Face Mask Simple Face Mask Room Air Oxygen Flow Rate 8 8 08/25/24 10:55 08/25/24 11:10 08/25/24 11:25 Temperature Pulse Rate 70 65 66 Respiratory Rate 20 12 18 Blood Pressure 110/64 106/69 108/61 Pulse Oximetry 94 96 96 Oxygen Delivery Room Air Nasal Cannula Nasal Cannula Oxygen Flow Rate 2 2 08/25/24 11:35 08/25/24 12:00 08/25/24 12:15 Temperature 96.9 F L 97.1 F L Pulse Rate 65 61 63 Respiratory Rate 12 14 16 Blood Pressure 108/68 107/64 110/64 Pulse Oximetry 99 99 98 Oxygen Delivery Nasal Cannula Oxygen Flow Rate 2 08/25/24 14:04 Temperature Pulse Rate Respiratory Rate Blood Pressure Pulse Oximetry Oxygen Delivery Nasal Cannula Oxygen Flow Rate 2 Exam Const: General: comfortable and no acute distress Other: , male, nontoxic appearance HENMT: Face/Nose/Sinus: Normal nares present Mouth: Yes moist mucous membranes Eyes: General: appearance normal, both eyes and all related structures Sclera: sclerae normal Pupils: Equal, round and reactive pupils present EOM: EOMs intact bilaterally Resp: Effort & Inspection: normal respiratory effort Auscultation: clear to auscultation bilaterally Cardio: Rate: regular rate Rhythm: regular rhythm Other: S1-S2 present without murmur, rub, ectopy GI: Other: Abdomen rounded but soft, nontender. Normoactive bowel sounds in all quadrants. Skin: General skin exam: normal color and no rashes or lesions noted Other: Postoperative incision to right knee, dressing CDI. Neuro: Speech: normal speech Motor exam (neuro): 5/5 motor strength present throughout Sensory Exam: normal sensation Other: A&O x4 Extrem: General: normal to inspection Psych: Mental Status: mental status grossly normal Affect: normal affect Other: Good insight and judgment, pleasant Quality VTE Prophylaxis VTE prophylaxis: mechanical ordered and pharmacologic ordered Hospitalist [facility] Advance Care Plan I have confirmed that the patient's Advanced Care Plan is present, code status is documented, or surrogate decision maker is listed in patient medical record.: Yes Medication Reconciliation I have utilized all available resources to obtain, update and review the patients current medications (includes all prescriptions, OTC, herbals, cannabis, and nutritional supplements).: Yes
[2024-08-25] MEDS: CELECOXIB 200 MG CAPSULE PO (17:04)
[2024-08-25] MEDS: RIVAROXABAN 10 MG TABLET PO (17:04)
[2024-08-25] MEDS: SENNA/DOCUSATE SODIUM TABLET 2 TAB PO (17:04)
[2024-08-25] MEDS: hydrALAZINE HCL 50 MG TABLET PO (17:05)
[2024-08-25] MEDS: HYDROcodone/acetaminophen (*CRX) 5-325 MG TABLET 1 TAB PO (23:03)
[2024-08-26 01:22] VITALS: BP 125/59; PULSE 66; RESP 12; TEMP 36.6; O2SAT 90
[2024-08-26 03:00] VITALS: O2SAT 94
[2024-08-26 05:22] VITALS: BP 118/59; PULSE 69; RESP 12; TEMP 36.7; O2SAT 96
[2024-08-26 06:22] LABS: Basophils Percent Auto 0.1 % (0.2-1.2); Eosinophils Percent Auto 0.1 % (0-4.4); Hematocrit 32.8 % (42.0-52.0); Immature Granulocyte Absolute 0.12 K/mm3 (0.00-0.031); Immature Granulocyte Percent A 0.9 % (0-0.5); Lymphocytes Absolute Auto 1.44 K/mm3 (0.9-3.2); Lymphocytes Percent Auto 10.4 % (18.3-44.2); Mean Corpuscular HGB Conc 33.5 g/dl (32-36); Mean Corpuscular Hemoglobin 31.4 pg (26-34); Mean Corpuscular Volume 93.7 fl (80-100); Mean Platelet Volume 11.3 fl (7.4-10.4); Monocytes Absolute Auto 1.8 K/mm3 (0.1-0.6); Monocytes Percent Auto 12.8 % (2.6-8.5); Neutrophils Absolute Auto 10.5 K/mm3 (1.3-6.7); Neutrophils Percent Auto 75.7 % (45.5-73.1); Platelet Count Result 131 k/mm3 (150-375); Red Cell Distribution Width 12.7 % (11.5-14.5); White Blood Count 13.9 K/mm3 (4.5-10.0)
[2024-08-26 06:28] LABS: Anion Gap 9 mmol/L (4-12); Blood Urea Nitrogen 34 mg/dL (9-20); Calcium 8.1 mg/dL (8.4-10.2); Carbon Dioxide 22 mmol/L (22-30); Chloride 105 mmol/L (98-107); Estimated CRCL calculation 45 ml/min; Estimated Glomerular Filt Rate 41; Glucose 131 mg/dL (65-110); Potassium 4.4 mmol/L (3.4-5.0); Sodium 136 mmol/L (137-145)
--- NOTE | 2024-08-26 07:14 | PM.PNORT ---
Progress Note: A&P Assessment and Plan (1) History of knee replacement procedure of right knee: Code(s): Z96.651 - Presence of right artificial knee joint Status: Acute Assessment and Plan: Patient is status post total knee arthroplasty right. He has done well postoperatively and can be dismissed today. Follow up 10 to 14 days for sutures out. If he has any changes or problems he will call discussed. Subjective Subjective Date/Time Seen: 08/26/24 07:14 Principal diagnosis: Right total knee arthroplasty for osteoarthritis Review of Systems Musculoskeletal: Musculoskeletal: Reports arthralgias, Reports joint swelling and Reports stiffness Neurologic: Reports abnormal gait Exam Narrative: Patient can wiggle his toes. He can ambulate with a walker. Neurologically appears to be grossly intact. His dressing is intact. Objective Data Vital Signs Vital Signs: Vital Signs - 24 hr 08/25/24 10:12 08/25/24 10:25 08/25/24 10:28 Temperature 97.9 F Pulse Rate 66 65 Respiratory Rate 16 16 Blood Pressure 90/59 L 103/65 Pulse Oximetry 91 93 93 Oxygen Delivery Simple Face Mask Simple Face Mask Simple Face Mask Oxygen Flow Rate 8 8 8 08/25/24 10:40 08/25/24 10:50 08/25/24 10:55 Temperature Pulse Rate 69 70 Respiratory Rate 20 20 Blood Pressure 107/65 110/64 Pulse Oximetry 96 95 94 Oxygen Delivery Simple Face Mask Room Air Room Air Oxygen Flow Rate 8 08/25/24 11:10 08/25/24 11:25 08/25/24 11:35 Temperature Pulse Rate 65 66 65 Respiratory Rate 12 18 12 Blood Pressure 106/69 108/61 108/68 Pulse Oximetry 96 96 99 Oxygen Delivery Nasal Cannula Nasal Cannula Nasal Cannula Oxygen Flow Rate 2 2 2 08/25/24 12:00 08/25/24 12:15 08/25/24 12:45 Temperature 96.9 F L 97.1 F L 96.9 F L Pulse Rate 61 63 63 Respiratory Rate 14 16 16 Blood Pressure 107/64 110/64 117/70 Pulse Oximetry 99 98 98 Oxygen Delivery Oxygen Flow Rate 08/25/24 13:45 08/25/24 14:04 08/25/24 17:22 Temperature 96.9 F L 97.4 F L Pulse Rate 71 66 Respiratory Rate 16 14 Blood Pressure 118/81 134/74 Pulse Oximetry 97 98 Oxygen Delivery Nasal Cannula Oxygen Flow Rate 2 08/25/24 20:00 08/25/24 21:22 08/26/24 01:22 Temperature 97.5 F L 97.8 F Pulse Rate 65 66 Respiratory Rate 14 12 Blood Pressure 125/73 125/59 L Pulse Oximetry 94 90 Oxygen Delivery Room Air Oxygen Flow Rate 08/26/24 03:00 08/26/24 05:22 Temperature 98.0 F Pulse Rate 69 Respiratory Rate 12 Blood Pressure 118/59 L Pulse Oximetry 94 96 Oxygen Delivery Nasal Cannula Oxygen Flow Rate 2 Intake/Output Intake/Output: Intake & Output 08/23/24 08/24/24 08/25/24 08/26/24 23:59 23:59 23:59 23:59 Intake Total 2290 Balance 2290 Meds/Results Medications: Active Medications Generic Name Dose Route Start Last Admin Trade Name Freq PRN Reason Stop Dose Admin Hydrocodone Bitart/Acetaminophen 1 tab 08/25/24 11:37 08/25/24 23:03 Hydrocodone/Acetaminophen (*Crx) 5-325 Mg Tablet PO 1 tab Q4H PRN Administration Pain Rated 4-6 Hydrocodone Bitart/Acetaminophen 1 tab 08/25/24 11:37 08/25/24 18:58 Hydrocodone/Acetaminophen (*Crx) 7.5-325 Mg Tablet PO 1 tab Q4H PRN Administration Pain Rated 7-10 Amlodipine Besylate 10 mg 08/25/24 11:37 08/25/24 13:38 Amlodipine Besylate 5 Mg Tablet PO Not Given DAILY MICHELLE Celecoxib 200 mg 08/25/24 17:00 08/25/24 17:04 Celecoxib 200 Mg Capsule PO 200 mg BIDWM MICHELLE Administration Diphenhydramine HCl 25 mg 08/25/24 11:37 Diphenhydramine Hcl Inj 50 Mg/Ml Vial IV PUSH Q6H PRN Itching Hydralazine HCl 50 mg 08/25/24 13:00 08/25/24 17:05 Hydralazine Hcl 50 Mg Tablet PO 50 mg TID MICHELLE Administration Hydromorphone HCl 1 mg 08/25/24 11:37 Hydromorphone Hcl Inj (*Crx) 1 Mg/Ml Syr IV PUSH Q2H PRN Breakthrough Pain Rated 7-10 or NPO Hydromorphone HCl 0.5 mg 08/25/24 11:37 Hydromorphone Hcl Inj (*Crx) 1 Mg/Ml Syr IV PUSH Q2H PRN Breakthrough Pain Rated 4-6 or NPO Cefazolin Sodium 2 gm in 50 mls @ 100 mls/hr 08/25/24 16:00 08/25/24 23:36 Ancef 2 Gm/D5w 50 Ml IVPB 08/26/24 08:29 Infused Q8H [facility] Infusion Lisinopril 20 mg 08/26/24 09:00 Lisinopril 20 Mg Tablet PO DAILY [facility] Metoprolol Succinate 100 mg 08/26/24 09:00 Metoprolol Succinate Ext Rel 100 Mg Tabcr PO QAM [facility] Naloxone HCl 0.1 mg 08/25/24 11:37 Naloxone Hcl 0.4 Mg/Ml Vial IV PUSH Q2M PRN Opiate Reversal Ondansetron HCl 4 mg 08/25/24 11:37 Ondansetron Inj 4 Mg/2 Ml Vial IV PUSH Q4H PRN Nausea And Vomiting Polyethylene Glycol 17 gm 08/26/24 09:00 Polyethylene Glycol 3350 17 Gm Powd.Pack PO QAM [facility] Rivaroxaban 10 mg 08/25/24 17:00 08/25/24 17:04 Rivaroxaban 10 Mg Tablet PO 09/05/24 17:01 10 mg DAILY@17 [facility] Administration Senna/Docusate Sodium 2 tab 08/25/24 17:00 08/25/24 17:04 Senna/Docusate Sodium Tablet PO 2 tab BID [facility] Administration Spironolactone 50 mg 08/26/24 09:00 Spironolactone 50 Mg Tablet PO DAILY [facility] Tramadol HCl 50 mg 08/25/24 11:37 Tramadol Hcl (*Crx) 50 Mg Tablet PO Q4H PRN Pain Rated 1-3 Radiology Results: ITS Impressions Knee X-Ray 08/25/24 10:52 IMPRESSION: 1. Right total knee arthroplasty, negative for postoperative purposes. Labs Labs: Laboratory Results - last 24 hr 08/26/24 05:19 WBC 13.9 H RBC 3.50 L Hgb 11.0 L D Hct 32.8 L MCV 93.7 MCH 31.4 MCHC 33.5 RDW 12.7 Plt Count 131 L MPV 11.3 H Immature Gran % (Auto) 0.9 H Neut % (Auto) 75.7 H Lymph % (Auto) 10.4 L Dillon % (Auto) 12.8 H Eos % (Auto) 0.1 Baso % (Auto) 0.1 L Lymph # (Auto) 1.44 Dillon # (Auto) 1.8 H Eos # (Auto) 0.0 Baso # (Auto) 0.0 Abs Immat Gran (auto) 0.12 H Absolute Neuts (auto) 10.5 H Absolute Nucleated RBC 0.000 Nucleated RBC % 0.0 Sodium 136 L Potassium 4.4 Chloride 105 Carbon Dioxide 22 Anion Gap 9 BUN 34 H D Creatinine 1.68 H Estim Creat Clear Calc 45 Estimated GFR 41 L Glucose 131 H Calcium 8.1 L
[2024-08-26] MEDS: ceFAZolin 2 GM/D5W 50 ML 2 GM/50 ML BAG IVPB (08:47)
[2024-08-26] MEDS: polyethylene glycoL 3350 17 GM POWD.PACK PO (08:53)
[2024-08-26] MEDS: CELECOXIB 200 MG CAPSULE PO (08:53)
[2024-08-26] MEDS: HYDROcodone/acetaminophen (*CRX) 7.5-325 MG TABLET 1 TAB PO (08:54)
[2024-08-26] MEDS: hydrALAZINE HCL 50 MG TABLET PO ×2 (08:54→12:22)
[2024-08-26] MEDS: amLODIPine BESYLATE 5 MG TABLET 10 MG PO (08:54)
[2024-08-26] MEDS: SENNA/DOCUSATE SODIUM TABLET 2 TAB PO (08:54)
[2024-08-26] MEDS: lisinopriL 20 MG TABLET PO (08:55)
[2024-08-26 08:56] VITALS: PULSE 72; RESP 16; O2SAT 96
[2024-08-26] MEDS: METOPROLOL SUCCINATE EXT REL 100 MG TABCR PO (08:56)
[2024-08-26] MEDS: SPIRONOLACTONE 50 MG TABLET PO (08:56)
[2024-08-26 09:22] VITALS: BP 126/79; PULSE 72; RESP 16; TEMP 36.4; O2SAT 96
--- NOTE | 2024-08-26 13:45 | P.PNIM_ITS ---
Progress Note: A&P Assessment and Plan (1) Osteoarthritis of knees, bilateral: Qualifiers: Osteoarthritis type: unspecified Qualified Code(s): M17.0 - Bilateral primary osteoarthritis of knee Code(s): M17.0 - Bilateral primary osteoarthritis of knee Status: Acute Assessment and Plan: S/p total right knee arthroplasty on 08/25 with Francisco ROCA. Primary management through orthopedic team. - IS - neurovasc checks - see order for intervals - dvt ppx per ortho: xarelto 10 mg daily - analgesics and antiemetics p.r.n. - monitor labs in AM - CBC and BMP - bowel regimen: docusate/senna, polyethylene glycol - PT/OT evaluation and treatment per Ortho: full weight bearing ambulate with assistance and up to chair (2) HTN (hypertension): Qualifiers: Hypertension type: primary hypertension Qualified Code(s): I10 - Essential (primary) hypertension Code(s): I10 - Essential (primary) hypertension Status: Chronic Assessment and Plan: Chronic - continue home medications: lisinopril, metoprolol ER, spironolactone, amlodipine, hydralazine - blood pressures remain stable, continue to monitor Plan Diet: Regular GI Prophylaxis: Not currently indicated DVT Prophylaxis: SCDs, Xarelto Lines: Peripheral Code Status: Full code Time Spent With Patient Time with patient: 25 - 35 minutes Subjective Date/time seen: 08/26/24 13:45 Interval history: 64 year old male with past medical history of hypertension, hyperlipidemia, and anxiety presents to the hospital for surgical management of right knee osteoarthritis s/p total right knee arthroplasty on 08/25 with Francisco ROCA. Patient is pleasant lying comfortably in bed. Continues to endorse slight swelling to the right knee and notes that pain is well controlled on the current regimen. He has no complaints at this time denying chest pain, palpitations, shortness of breath, nausea/vomiting, abdominal pain. Patient states he plans to be discharged home later this afternoon with his sister. Review of Systems Review of Systems: All systems reviewed & are unremarkable except as noted in HPI and below Exam Narrative: AF HR 72 RR 16 SpO2 96 BP 126/79 General: male in no acute respiratory distress who is nontoxic appearing, lying semi recumbent in bed. HEENT: Normocephalic. Atraumatic. Extraocular movement intact. Sclera clear and anicteric. No facial asymmetry. Chest: Lungs are clear to auscultation bilaterally. CV: Heart was regular rate and rhythm. Abd: Abdomen was soft. Nontender. Nondistended. Positive bowel sounds. Ext: No clubbing, cyanosis. Slight edema to the right knee. DP pulses bilaterally. Wiggling toes. Neuro: Patient is alert and oriented x3.Speech is clear. Objective Data Vital Signs Vital Signs: Vital Signs - 24 hr 08/25/24 14:04 08/25/24 17:22 08/25/24 20:00 Temperature 97.4 F L Pulse Rate 66 Respiratory Rate 14 Blood Pressure 134/74 Pulse Oximetry 98 Oxygen Delivery Nasal Cannula Room Air Oxygen Flow Rate 2 08/25/24 21:22 08/26/24 01:22 08/26/24 03:00 Temperature 97.5 F L 97.8 F Pulse Rate 65 66 Respiratory Rate 14 12 Blood Pressure 125/73 125/59 L Pulse Oximetry 94 90 94 Oxygen Delivery Nasal Cannula Oxygen Flow Rate 2 08/26/24 05:22 08/26/24 08:56 08/26/24 08:56 Temperature 98.0 F Pulse Rate 69 72 Respiratory Rate 12 16 Blood Pressure 118/59 L Pulse Oximetry 96 96 Oxygen Delivery Room Air Oxygen Flow Rate 08/26/24 09:22 Temperature 97.5 F L Pulse Rate 72 Respiratory Rate 16 Blood Pressure 126/79 Pulse Oximetry 96 Oxygen Delivery Oxygen Flow Rate Intake/Output Intake/Output: Intake & Output 08/23/24 08/24/24 08/25/24 08/26/24 23:59 23:59 23:59 23:59 Intake Total 2290 604 Balance 2290 604 Meds/Results Medications: Active Medications Generic Name Dose Route Start Last Admin Trade Name Freq PRN Reason Stop Dose Admin Hydrocodone Bitart/Acetaminophen 1 tab 08/25/24 11:37 08/25/24 23:03 Hydrocodone/Acetaminophen (*Crx) 5-325 Mg Tablet PO 1 tab Q4H PRN Administration Pain Rated 4-6 Hydrocodone Bitart/Acetaminophen 1 tab 08/25/24 11:37 08/26/24 08:54 Hydrocodone/Acetaminophen (*Crx) 7.5-325 Mg Tablet PO 1 tab Q4H PRN Administration Pain Rated 7-10 Amlodipine Besylate 10 mg 08/25/24 11:37 08/26/24 08:54 Amlodipine Besylate 5 Mg Tablet PO 10 mg DAILY MICHELLE Administration Celecoxib 200 mg 08/25/24 17:00 08/26/24 08:53 Celecoxib 200 Mg Capsule PO 200 mg BIDWM MICHELLE Administration Diphenhydramine HCl 25 mg 08/25/24 11:37 Diphenhydramine Hcl Inj 50 Mg/Ml Vial IV PUSH Q6H PRN Itching Hydralazine HCl 50 mg 08/25/24 13:00 08/26/24 12:22 Hydralazine Hcl 50 Mg Tablet PO 50 mg TID MICHELLE Administration Hydromorphone HCl 1 mg 08/25/24 11:37 Hydromorphone Hcl Inj (*Crx) 1 Mg/Ml Syr IV PUSH Q2H PRN Breakthrough Pain Rated 7-10 or NPO Hydromorphone HCl 0.5 mg 08/25/24 11:37 Hydromorphone Hcl Inj (*Crx) 1 Mg/Ml Syr IV PUSH Q2H PRN Breakthrough Pain Rated 4-6 or NPO Lisinopril 20 mg 08/26/24 09:00 08/26/24 08:55 Lisinopril 20 Mg Tablet PO 20 mg DAILY [facility] Administration Metoprolol Succinate 100 mg 08/26/24 09:00 08/26/24 08:56 Metoprolol Succinate Ext Rel 100 Mg Tabcr PO 100 mg QAM MICHELLE Administration Naloxone HCl 0.1 mg 08/25/24 11:37 Naloxone Hcl 0.4 Mg/Ml Vial IV PUSH Q2M PRN Opiate Reversal Ondansetron HCl 4 mg 08/25/24 11:37 Ondansetron Inj 4 Mg/2 Ml Vial IV PUSH Q4H PRN Nausea And Vomiting Polyethylene Glycol 17 gm 08/26/24 09:00 08/26/24 08:53 Polyethylene Glycol 3350 17 Gm Powd.Pack PO 17 gm QAM MICHELLE Administration Rivaroxaban 10 mg 08/25/24 17:00 08/25/24 17:04 Rivaroxaban 10 Mg Tablet PO 09/05/24 17:01 10 mg DAILY@17 MICHELLE Administration Senna/Docusate Sodium 2 tab 08/25/24 17:00 08/26/24 08:54 Senna/Docusate Sodium Tablet PO 2 tab BID [facility] Administration Spironolactone 50 mg 08/26/24 09:00 08/26/24 08:56 Spironolactone 50 Mg Tablet PO 50 mg DAILY MICHELLE Administration Tramadol HCl 50 mg 08/25/24 11:37 Tramadol Hcl (*Crx) 50 Mg Tablet PO Q4H PRN Pain Rated 1-3 Radiology Results: ITS Impressions Knee X-Ray 08/25/24 10:52 IMPRESSION: 1. Right total knee arthroplasty, negative for postoperative purposes. Labs Labs: Laboratory Results - last 24 hr 08/26/24 05:19 WBC 13.9 H RBC 3.50 L Hgb 11.0 L D Hct 32.8 L MCV 93.7 MCH 31.4 MCHC 33.5 RDW 12.7 Plt Count 131 L MPV 11.3 H Immature Gran % (Auto) 0.9 H Neut % (Auto) 75.7 H Lymph % (Auto) 10.4 L Emmons % (Auto) 12.8 H Eos % (Auto) 0.1 Baso % (Auto) 0.1 L Lymph # (Auto) 1.44 Emmons # (Auto) 1.8 H Eos # (Auto) 0.0 Baso # (Auto) 0.0 Abs Immat Gran (auto) 0.12 H Absolute Neuts (auto) 10.5 H Absolute Nucleated RBC 0.000 Nucleated RBC % 0.0 Sodium 136 L Potassium 4.4 Chloride 105 Carbon Dioxide 22 Anion Gap 9 BUN 34 H D Creatinine 1.68 H Estim Creat Clear Calc 45 Estimated GFR 41 L Glucose 131 H Calcium 8.1 L Quality VTE Prophylaxis VTE prophylaxis: mechanical ordered and pharmacologic ordered
== END 2024-08-26 15:40 | disposition home health service (06) ==
LOC: ANHSURGERY 06:05 → ANH3MEDSUR 22:14
PROVIDERS: PCP Family Medicine; Visit Provider Orthopaedic Surgery
PROC: (CPT 27447; principal; 2024-08-25 07:30)
DX: M17.11 Unilateral primary osteoarthritis, right knee (principal); G89.18 Other acute postprocedural pain; I10 Essential (primary) hypertension; E78.5 Hyperlipidemia, unspecified; F41.1 Generalized anxiety disorder; Z79.899 Other long term (current) drug therapy
CPT/HCPCS: 27447; 64447; 36415; 73560; 80048; 85025; 97110; 97116; 97161; 97530; 97535; A9270; C1713; C1776; J0171; J0690; J1100; J1885; J2003; J2250; J2270; J2405; J2704; J2795; J3010; J3370; J7030; J7120

== ENCOUNTER 2024-09-15 13:43 | Outpatient (RCR) | payer OTHER, MEDICAID, SELFPAY ==
--- NOTE | 2024-09-15 14:41 | OPREHPOC ---
Outpatient Therapy Plan of Care This is a Multidisciplinary Plan of Care that may contain components documented by all disciplines (PT, OT, and ST.) PT Problem 1 PT Problem #1 Knowledge Deficit PT Goal 1 Goal / Goal Update Independent and compliant with HEP Target Visit 6 PT Problem 2 PT Problem #2 Pain PT Goal 1 Goal / Goal Update Pt to report no more than 2/10 pain at rest. Pt to report no more than 5/10 pain with activity. Target Visit 12 PT Problem 3 PT Problem #3 Impaired Strength PT Goal 1 Goal / Goal Update Pt to improve gross LE strength to 5/5. Target Visit 12 PT Problem 4 PT Problem #4 Impaired Range of Motion PT Goal 1 Goal / Goal Update Pt to improve R knee AROM to 0-130. Improve swelling to 43cm for improved knee joint mobility. Target Visit 12 PT Problem 5 PT Problem #5 Impaired Functional Mobility PT Goal 1 Goal / Goal Update Pt to note 30% improvement on LEFS. Target Visit 12
--- NOTE | 2024-09-15 14:41 | PTOPEVAL1 ---
Assessment and note entered by Alley Garland, PT Evaluation Information Assessment Status Progress Diagnosis R TKA ICD-10 Condition Codes (PT) Aftercare following joint replacement surgery Z47. 1 Onset 08/25/24 Subjective Information Pt underwent R TKA on 08/25/24. He states he received home health therapy for 2.5 weeks following surgery and got up to 105 degrees of flexion. He reports he's been doing his home health exercises diligently after seeing his doctor the other day and was told he may need a PORTILLO if he doesn't improve his ROM. He's been icing his knee at home as well as trying to use his stationary bike but he's not able to do a full revolution on it. Reported Pain Level Pain Score 5: Self Report Assessment PT Clinical Summary Mr. Mccormack is a 64 yo male who enters the clinic 3 weeks post R TKA. He demonstrates moderate R knee edema and impaired lower extremity strength and ROM. He will benefit from skilled PT intervention to improve on these deficits to be able to perform functional tasks without difficulty. Plan of Care Interventions Electrical Stimulation,Gait Training,Hot Pack/Cold Pack,Intermittent Compression Pump,Manual Therapy ,Neuro Re-education,Patient/Caregiver Education, Therapeutic Activities,Therapeutic Exercise,Self- Care/Home Management PT Services Indicated Yes Treatment Frequency and 2x/week for 12 visits Duration These treatments will address the objective and functional deficits as defined above. The patient will be advanced safely and appropriately in order for the patient to progress towards his/her prior level of function. Additional exercises will be introduced and as well as a comprehensive home exercise program upon discharge, if needed, ?to ensure carryover of functional gains achieved in the clinic. This treatment plan has been reviewed and agreement upon by the patient.
--- NOTE | 2024-10-22 13:20 | OPREHPOC ---
Outpatient Therapy Plan of Care This is a Multidisciplinary Plan of Care that may contain components documented by all disciplines (PT, OT, and ST.) PT Problem 1 PT Problem #1 Knowledge Deficit PT Goal 1 Goal / Goal Update Independent and compliant with HEP Target Visit 6 Progress Met PT Goal 2 Goal / Goal Update continue PT Problem 2 PT Problem #2 Pain PT Goal 1 Goal / Goal Update Pt to report no more than 2/10 pain at rest. Pt to report no more than 5/10 pain with activity. Target Visit 20 Progress Not Met PT Problem 3 PT Problem #3 Impaired Strength PT Goal 1 Goal / Goal Update Pt to improve gross LE strength to 5/5. ( ankle DF and hip flexion are still not 5/5) Target Visit 20 Progress Partially Met PT Problem 4 PT Problem #4 Impaired Range of Motion PT Goal 1 Goal / Goal Update Pt to improve R knee AROM to 0-130. Improve swelling to 43cm for improved knee joint mobility. - met was 41cm Target Visit 20 Progress Partially Met PT Problem 5 PT Problem #5 Impaired Functional Mobility PT Goal 1 Goal / Goal Update Pt to note 30% improvement on LEFS. Target Visit 20 Progress Not Met
--- NOTE | 2024-10-22 13:20 | PTOPREEVAL ---
Assessment and note entered by JT File, PT Evaluation Information Assessment Status Re-evaluation Diagnosis R TKA ICD-10 Condition Codes (PT) Aftercare following joint replacement surgery Z47. 1 Onset 08/25/24 Subjective Information pt reports that his knee is bothering him more today than normal. Pt reports that the pain is in the back and front of his knee and [place] and aches down his calf. He reports that he still has difficulty putting on his socks and pants. Pt also reports he has not had a good nights sleep since the surgery, and has to rely on medicine to get any sleep. Pt reports that he has been doing his HEP 2-3 times a day. Reported Pain Level Pain Score 7: Self Report Assessment PT Clinical Summary Mr. Mccormack is on his 12th skilled PT visit post R TKA. Pt has not met majority of his goals, and has functional limitations that hinder his ability to return to prior level of work. The pt still has deficits in knee ROM and gait mechanics. Pt still reports high level of disability on the LEFS . Continued skilled PT is needed to work on deficits, pain, and to return to prior level of function and work duties. Plan of Care Interventions Electrical Stimulation,Gait Training,Hot Pack/Cold Pack,Manual Therapy,Neuro Re-education,Patient/ Caregiver Education,Therapeutic Activities, Therapeutic Exercise,Self-Care/Home Management PT Services Indicated Yes Treatment Frequency and 2x a week for 8 visits Duration These treatments will address the objective and functional deficits as defined above. The patient will be advanced safely and appropriately in order for the patient to progress towards his/her prior level of function. Additional exercises will be introduced and as well as a comprehensive home exercise program upon discharge, if needed, ?to ensure carryover of functional gains achieved in the clinic. This treatment plan has been reviewed and agreement upon by the patient.
--- NOTE | 2024-10-22 13:20 | PCPTNOTE ---
On 10/22/24, the student, [Luly Robb], provided care and completed [facility] documentation on this patient. I have reviewed the student's documentation and agree with the findings.
--- NOTE | 2024-11-02 10:00 | PCPTNOTE ---
Patient called & cancelled scheduled appointment this date due to not feeling well. He is scheduled on 11/04/24 as well. -Dana Maher, PT
--- NOTE | 2024-11-04 11:49 | PCPTNOTE ---
Patient called & cancelled scheduled appointment this date due to not feeling well. -Dana Maher, PT
--- NOTE | 2024-11-25 14:42 | OPREHPOC ---
Outpatient Therapy Plan of Care This is a Multidisciplinary Plan of Care that may contain components documented by all disciplines (PT, OT, and ST.) PT Problem 1 PT Problem #1 Knowledge Deficit PT Goal 1 Goal / Goal Update Independent and compliant with HEP Target Visit 6 Progress Met PT Goal 2 Goal / Goal Update continue PT Problem 2 PT Problem #2 Pain PT Goal 1 Goal / Goal Update Pt to report no more than 2/10 pain at rest. Pt to report no more than 5/10 pain with activity. Target Visit 26 Progress Not Met PT Problem 3 PT Problem #3 Impaired Strength PT Goal 1 Goal / Goal Update Pt to improve gross LE strength to 5/5. ( hip flexion and abd is still not 5/5) Target Visit 26 Progress Partially Met PT Problem 4 PT Problem #4 Impaired Range of Motion PT Goal 1 Goal / Goal Update Pt to improve R knee AROM to 0-130. Improve swelling to 43cm for improved knee joint mobility. - met was 41cm Target Visit 26 Progress Partially Met PT Problem 5 PT Problem #5 Impaired Functional Mobility PT Goal 1 Goal / Goal Update Pt to note 30% improvement on LEFS. Target Visit 26 Progress Not Met
--- NOTE | 2024-11-25 14:42 | PTOPREEVAL ---
Assessment and note entered by JT File, PT Evaluation Information Assessment Status Re-evaluation Diagnosis R TKA ICD-10 Condition Codes (PT) Aftercare following joint replacement surgery Z47. 1 Onset 08/25/24 Subjective Information patient reports he is 3 months post op today. he reports he is still frustrated with the burning pain in the R knee at night. he reports he still has to take pain pills to be able to get through the burning pain and sleep at night. he reports he does not go back to the MD until next year. he reports he is not returning to work. he reports he retired 10/24/24. Reported Pain Level Pain Score 2: Self Report Assessment PT Clinical Summary mr. wilde presents to skilled PT for her 20th skilled therapy visit. although he is not planning to return to work, patient continues to display deficits in rom, strength, ambulation, and functional activity performance. he has met only his goal for HEP fully. patient would benefit from continued skilled PT to address his remaining objective/functional deficits to improve his quality of life and return to prior level functional activity performance without deficits or modification. Plan of Care Interventions Electrical Stimulation,Gait Training,Hot Pack/Cold Pack,Manual Therapy,Neuro Re-education,Patient/ Caregiver Education,Therapeutic Activities, Therapeutic Exercise,Self-Care/Home Management PT Services Indicated Yes Treatment Frequency and 2x weekly for 6 more visits Duration These treatments will address the objective and functional deficits as defined above. The patient will be advanced safely and appropriately in order for the patient to progress towards his/her prior level of function. Additional exercises will be introduced and as well as a comprehensive home exercise program upon discharge, if needed, ?to ensure carryover of functional gains achieved in the clinic. This treatment plan has been reviewed and agreement upon by the patient.
== END 2024-12-10 21:25 | disposition still patient (30) ==
LOC: CHSPT 13:43
PROVIDERS: Visit Provider Orthopaedic Surgery
DX: Z96.651 Presence of right artificial knee joint (principal); Z47.1 Aftercare following joint replacement surgery
CPT/HCPCS: 97016; 97110; 97112; 97140; 97150; 97161; 97530

== ENCOUNTER 2024-12-08 13:12 | Outpatient (CLI) | payer MEDICARE, SELFPAY ==
--- NOTE | ~2024-12-08 | US_ITS ---
RIGHT LOWER EXTREMITY VENOUS ULTRASOUND Ordering provider: Don Jones DO History: . I82.409 - Acute embolism and thrombosis of unspecified de... . Comparison: None. FINDINGS: --COMMON FEMORAL: Patent and free of thrombus. Normal compressibility, phasic flow and augmentation. --PROXIMAL SUPERFICIAL FEMORAL: Patent and free of thrombus. Normal compressibility, phasic flow and augmentation. --DISTAL SUPERFICIAL FEMORAL: Patent and free of thrombus. Normal compressibility, phasic flow and au gmentation. --POPLITEAL: Patent and free of thrombus. Normal compressibility, phasic flow and augmentation. --POSTERIOR TIBIAL: Patent and free of thrombus. Normal compressibility, phasic flow and augmentation . IMPRESSION: Negative right lower extremity venous US. No deep vein thrombosis. Reviewed, dictated and finalized at location A.
--- OUTSIDE RECORDS SUMMARY | 2024-12-08 13:16 | XMS_ITS | Clinical Summary ---
Author Organization [facility] [place] Address [address] [place] [address] Care Team Providers Care Pattern Filer Name Role Phone None, Provider MD Primary Care Provider Unavaila ble Allergies No known active allergies Medications metoprolol succinate ER 25 MG 24 hr tablet Take 25 mg by mouth daily. Active amLODIPine 5 MG tablet Take 5 mg by mouth daily. Active lisinopril 20 MG tablet Take 20 mg by mouth daily. Active Immunizations Immunization Administration Dates Next Due Tdap (Boostrix) 10/01/2021 [...] 8:18 AM CDT Height 175.3 cm (5' 9) 10/01/2021 8:18 AM CDT Body Mass Index 28.5 10/01/2021 8:18 AM CDT Plan of Treatment Health Maintenance Due Date Last Done Comments Colorectal Cancer Screening Colonoscopy (10 Years) 1958 Hepatitis C 1976 Zoster Vaccines (1 of 2) 2008 Pneumococcal Vaccine: 50+ Years (2 of 2 - PCV) 02/13/2018 02/13/2017 COVID-19 Vaccine (3 - 2023-2 5 [...] Insurance [employer] Care Teams Pattern Filer Relationship Specialty Start Date End Date None, Provider, PCP - General 10/01/21
--- OUTSIDE RECORDS SUMMARY | 2024-12-08 13:16 | XMS_ITS | Referral Summary ---
Author Organization [facility] [place] [address] [place] [address] Care Team Providers Care Artisan Plasterer Name Role Phone Don Jones DO Primary Care Provider Don Jones DO Unavailable [phone] Allergies No known active allergies Medications metoprolol [...] 8:05 AM CDT Height 175.3 cm (5' 9) 08/02/2024 8:05 AM CDT Body Mass Index 31.9 08/02/2024 8:05 AM CDT Plan of Treatment Not on [place] [address] MEDICARE MEDICARE IDPA MEDICARE WORKERS COMPENSATION GENERIC COMPENSATION Care Teams Artisan Plasterer Relationship Specialty Start Date End Date Don Jones DO [address] [place] [address] PCP - General Family Medicine 07/28/24 Don Jones DO [address] [place] [address] Family Medicine 07/28/24
--- OUTSIDE RECORDS SUMMARY | 2024-12-08 13:16 | XMS_ITS | Clinical Summary ---
Author Organization [facility] [address] [facility] [address] [place] [address] Care Team Providers Care Carpenter And Joiner Name Role Phone Don Jones DO Primary Care Provider Don Jones DO Unavailable Allergies No known active allergies Medications metoprolol [...] Vaccine ( season) 01/25/202410/2020, 12/08/2020 Influenza Vaccine (Season Ended) 2025 02/16/20 15, 2014 DTaP/Tdap/Td Vaccine (4 - Td or Tdap) 10/02/2031 10/01/2021, 03/31/2014, 01/02/2013 Insurance [place] MEDICARE MEDICARE [employer] MEDICARE WORKERS COMPENSATION GENERIC COMPENSATION Care Teams Carpenter And Joiner Relationship Specialty Start Date End Date Don Jones DO [address] [place] [address] PCP - General Family Medicine 07/28/24 Don Jones DO [address] [place] [address] Family Medicine 07/28/24
== END 2024-12-08 13:13 | disposition home or self-care (01) ==
PROVIDERS: PCP Family Medicine; Visit Provider Family Medicine
DX: I82.409 Acute embolism and thrombosis of unspecified deep veins of unspecified lower extremity (principal)
CPT/HCPCS: 93971

== ENCOUNTER 2024-12-14 16:30 | Observation (INO) | payer MEDICARE, SELFPAY ==
--- NOTE | ~2024-12-14 | CT_ITS ---
CLINICAL INDICATION: Shortness of breath and leukocytosis COMPARISON: None. TECHNIQUE: Multiple contiguous axial images of the abdomen and pelvis were performed following the ad ministration of with 100 mL Omnipaque-350 intravenous contrast The dose-length product (DLP) was 773.10 mGy-cm. Automated exposure control and iterative reconstruction technique were employed. FINDINGS/OBSERVATIONS: Visualized lower thorax: The bilateral lung bases are clear. The heart is of normal size, without pericardial effusion. Liver: The liver demonstrates homogeneous enhancement and is markedly enlarged measuring 21 cm in longitudin al dimension. Gallbladder and biliary system: The gallbladder is surgically absent. Pancreas: Well-circumscribed focus of fluid attenuation within the head of the pancreas measuring 17 x 18 x 22 mm (anterior to posterior x medial to lateral x cranial to caudal dimension). The remainder of the pancreas otherwise enhances homogeneously without ductal dilatation. Spleen: The spleen enhances homogeneously and is not enlarged. Kidneys: Multiple foci of fluid attenuation are identified within the bilateral kidneys, the largest within the interpolar region of the left kidney measuring 12 x 10 x 12 cm (anterior to posterior x me dial to lateral x cranial to caudal dimension). The remainder of the bilateral kidneys otherwise enhance symmetrically without hydronephrosis or macarena l calculi. Adrenal glands: Unremarkable. Gastrointestinal tract: Fecal stasis within the colon. Rectosigmoid diverticulosis without CT evidence of diverticulitis. Appendix: The air-filled appendix is of normal caliber (axial series, images 113 through 129). Vasculature: Unremarkable. Lymph nodes: No pathologically enlarged or morphologically suspicious lymph nodes within the retroperitoneum or at the root of the mesentery. Pelvic structures: Edematous mural thickening is identified within the decompressed bladder with significant surrounding inflammatory change, likely the source of patient's leukocytosis. The prostate gland is not enlarged. Body wall and musculoskeletal: Fat-containing left inguinal hernia. Age-appropriate degenerative disease within the lower thoracic and lumbosacral spines. IMPRESSION: Findings consistent with cystitis, as detailed above. Hepatomegaly. 2 cm focus of fluid attenuation within the head of the pancreas for which nonemergent abdominal MRI/M [facility] [employer] may be performed for further evaluation. Reviewed, dictated and finalized at location A. IMPRESSION: Findings consistent with cystitis, as detailed above. Hepatomegaly. 2 cm focus of fluid attenuation within the head of the pancreas for which nonem ergent abdominal MRI/MRCP may be performed for further evaluation.
--- NOTE | ~2024-12-14 | XR_ITS ---
XR chest 2V 12/16/2024 10:54 Indication: Shortness of breath. Leukocytosis. Procedure: PA and lateral views the chest Comparison: No prior studies for comparison. Findings: There are subtle bibasilar infiltrates which may represent atelectasis or developing pneumo víctor. No significant effusion. No pneumothorax. Borderline heart size. No acute osseous abnormality. Impression: 1: Bibasilar infiltrates may represent atelectasis or developing pneumonia. Reviewed, dictated and finalized at location A. Impression: 1: Bibasilar infiltrates may represent atelectasis or developing pneumonia.
--- NOTE | 2024-12-14 16:32 | ECG_ITS ---
Test Date: 2024-12-14 16:45:47 Measurements Intervals [place] Rate: 80 P: 29 GA: 181 QRS: 33 QRSD: 155 T: -10 QT: 374 QTc: 432 Interpretive Statements SINUS RHYTHM RIGHT BUNDLE-BRANCH BLOCK LEFT VENTRICULAR HYPERTROPHY ABNORMAL ECG Electronically Signed On 12-15-2024 10:11:55 CDT by Eder Vernon M.D.
--- OUTSIDE RECORDS SUMMARY | 2024-12-14 16:33 | XMS_ITS | Referral Summary ---
Author Organization [facility] [place] [address] Address [address] [place] [address] Care Team Providers Care Cartography Technician Name Role Phone Don Jones DO Primary [...] Plan of Treatment Not on file Insurance [employer] MEDICARE MEDICARE [employer] MED[employer]ARE WORKERS COMPENSATION GENERIC Care Teams Cartography Technician Relationship Specialty Start Date End Date Don Jones DO [address] [place] [address] PCP - General Family Medicine 07/28/24 Don Jones DO [address] [place] [address] Family Medicine 07/28/24
--- OUTSIDE RECORDS SUMMARY | 2024-12-14 16:33 | XMS_ITS | Clinical Summary ---
Author Organization [facility] [place] [address] [facility] [address] [place] [address] Care Team Providers Care Applications Manager Name Role Phone Don Jones DO Primary [...] Well Visit 65+ 2023 Covid-19 Vaccine ( - season) 01/25/202410/2020, 12/08/2020 Influenza Vaccine (#1) 2025 02/15/2015, 2013 DTaP/Tdap/Td Vaccine (4 - Td or Tdap) 10/02/2031 10/01/2021, 03/31/2014, 01/02/2013 Insurance [place] MEDICARE MEDICARE [facility] MEDICARE WORKERS COMPENSATION GENERIC Care Teams Applications Manager Relationship Specialty Start Date End Date Don Jones DO [address] [place] [address] PCP - General Family Medicine 07/28/24 Don Jones DO [address] [place] [address] Family Medicine 07/28/24
[2024-12-14 16:44] VITALS: BP 129/74; PULSE 81; RESP 22; TEMP 37.7; O2SAT 97
[2024-12-14 17:21] LABS: Hematocrit 37.6 % (37.0-46.0); Hemoglobin 12.6 g/dL (12.4-15.3); Mean Corpuscular HGB Conc 33.5 g/dL (32-36); Mean Corpuscular Hemoglobin 29.5 pg (27.0-31.0); Mean Corpuscular Volume 88.1 fL (78.0-102.0); Platelet Count Result 171 K/mm3 (150-420); Red Blood Count 4.27 M/mm3 (4.70-6.10); White Blood Count 27.0 K/mm3 (4.8-10.8)
[2024-12-14 17:31] LABS: Add Urine Microscopic? YES; Glucose Urine UA Negative (Negative); Leukocyte Esterase Ur 3+ LEU/UL (Negative); Nitrate Urine Positive (Negative); Specific Grav Ur 1.020 (1.010-1.020)
[2024-12-14 17:34] LABS: Alanine Aminotransferase 21 U/L (6-50); Albumin Level 4.0 g/dL (3.5-5.1); Alkaline Phosphatase 104 U/L (38-126); Anion Gap 7 mmol/L (4-12); Aspartate Amino Transferase 22 U/L (17-59); Bilirubin,Total 1.7 mg/dL (0.2-1.3); Blood Urea Nitrogen 27 mg/dL (9-20); Calcium 9.2 mg/dL (8.4-10.2); Carbon Dioxide 20 mmol/L (22-30); Chloride 108 mmol/L (98-107); Estimated CRCL calculation 42 ml/min; Estimated Glomerular Filt Rate 38; Glucose 106 mg/dL (65-110); Osmolality Calculated 285 mOsm/kg (285-295); Potassium 4.3 mmol/L (3.4-5.0); Sodium 135 mmol/L (137-145); Total Protein 7.7 g/dL (6.3-8.2)
--- OUTSIDE RECORDS SUMMARY | 2024-12-14 17:34 | XMS_ITS | Clinical Summary ---
Author Organization [facility] Address [address] [place] [address] Care Team Providers Care Ski Molder Name Role Phone None, Provider MD Primary [...] Insurance [employer] Care Teams Ski Molder Relationship Specialty Start Date End Date None, Provider, PCP - General 10/01/21
--- OUTSIDE RECORDS SUMMARY | 2024-12-14 17:34 | XMS_ITS | Referral Summary ---
Author Organization [facility] [address] Address [address] [place] [address] Care Team Providers Care Mailing Jogger Name Role Phone Don Jones DO Primary [...] Plan of Treatment Not on file Insurance [employer] MEDICARE [facility] Address: [address] [address] [place] [address] WORKERS COMPENSATION [place]IC [place] [id number] Care Teams Mailing Jogger Relationship Specialty Start Date End Date Don Jones DO [address] [place] [address] PCP - General Family Medicine 07/28/24 Don Jones DO [place] [address] Family Medicine 07/28/24
--- OUTSIDE RECORDS SUMMARY | 2024-12-14 17:34 | XMS_ITS | Clinical Summary ---
Author Organization [facility] [place] [address] [facility] [address] [place] [address] Care Team Providers Care Implementation Services Analyst Name Role Phone Don Jones DO Primary [...] 10/02/2031 10/01/2021, 03/31/2014, 01/02/2013 Insurance [employer] MEDICARE WORKERS COMPENSATION GENERIC Care Teams Implementation Services Analyst Relationship Specialty Start Date End Date Don Jones DO [address] [place] [address] PCP - General Family Medicine 07/28/24 Don Jones DO [address] [place] [address] Family Medicine 07/28/24
[2024-12-14 17:39] LABS: Appearance Urine Cloudy (Clear)
[2024-12-14 17:45] LABS: Band Neutrophils Percent 0 % (0-6); Lymphocytes Absolute Manual 3.24 K/mm3 (1.1-4.5); Lymphocytes Percent Manual 12 % (18-44); Monocytes Absolute Manual 2.16 K/mm3 (0.1-0.90); Monocytes Percent Manual 8 % (3-9); Neutrophils Absolute Manual 21.60 K/mm3 (1.3-6.7); Neutrophils Percent Manual 80 % (46-73); Total Cells Counted 100
[2024-12-14 17:46] LABS: Schistocytes None Seen
[2024-12-14 18:04] LABS: Influenza A QL RT-PCR Negative (Negative); Influenza B QL RT-PCR Negative (Negative); RSV RNA, RT-PCR Negative (Negative); SARS-CoV-2 RNA PCR Negative (Negative)
[2024-12-14] MEDS: SODIUM CHLORIDE 0.9% IV 1,000 ML 150 ML IV CONT (18:21)
--- NOTE | 2024-12-14 18:23 | ED.GENADULT ---
HPI - General Adult General Chief complaint: Shortness of Breath/Dyspnea Stated complaint: shortness of breath Time Seen by Provider: 12/14/24 16:48 Source: patient Mode of arrival: ambulatory Limitations: no limitations History of Present Illness HPI narrative: 64-year-old otherwise healthy here with the complaints of not feeling well for past 1 week. Patient states that he has not had a bowel movement for past 3-4 days. Denies having any nausea or vomiting. No history of fever or chills. However he complains of dysuria. He also mentioned that he had a knee replacement a month ago. Related Data Home Medications ?Medication ?Instructions ?Recorded ?Confirmed ?Last Taken ?Type iqfctech-cd-qipog 300 mcg-K 60 1 tablet PO DAILY 08/16/24 12/08/24 Unknown History mcg-lycop 600 mcg-lutein 300 mcg tablet (Centrum Silver Men) Allergies Allergy/AdvReac Type Severity Reaction Status Date / Time No Known Allergies Allergy Verified 12/14/24 16:42 Review of Systems Review of Systems: All systems reviewed & are unremarkable except as noted in HPI and below Constitutional: Constitutional: Reports no additional constitutional complaints Eyes: Eyes: Reports no additional eye complaints ENT: Reports system reviewed and no additional complaints, except as documented Cardiovascular: Cardiovascular: Reports no additional cardiovascular complaints Respiratory: Respiratory: Reports as per HPI Gastrointestinal: Gastrointestinal: Reports no additional gastrointestinal complaints Genitourinary: Genitourinary: Reports as per HPI Musculoskeletal: Musculoskeletal: Reports no additional musculoskeletal complaints [facility] Past Medical History Medical History Anxiety MDD (major depressive disorder) Kidney stones BPH (benign prostatic hyperplasia) ESTHER (generalized anxiety disorder) HLD (hyperlipidemia) HTN (hypertension) Surgical History Surgical History History of total knee arthroplasty Right, 08/25/2024 History of arthroscopy of right knee 06/19/23, meniscus repair History of cholecystectomy Family History Family History Father Leukemia Mother Neuropathy Hypotension Social History Social History Smoking packs per day: 0.2 Smoking cigarettes per day: 4.0 Years smoked: 3 Smoking pack-years: 0.60 Smoking status: Never smoker Tobacco type: cigarettes Smoking end date: 11/24/79 Additional smoking assessment comments: DENIES ANY FORM OF TOBACCO USE Alcohol intake: former Substance use: never Substance use type: does not use Current Housing: Decline to Answer Concerned About Future Housing: Decline to Answer Difficulty Paying Gas/Electric Bills: Decline to Answer Difficulty Paying for Meds: Decline to Answer Currently Unemployed: Decline to Answer Education: Decline to Answer Difficulty w/ Childcare or Family Care: Decline to Answer Living arrangements: alone Occupation/Education: occupation Additional occupation/education comments: [employer]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 HEAD: Normocephalic, atraumatic. EYES: PERRLA and EOMI. ENT: Nares clear, no rhinorrhea or epistaxis. Mucous membranes moist. NECK: Supple. CHEST: Clear to auscultation. No respiratory distress. HEART: Regular rate and rhythm. No murmur heard. Normal peripheral pulses. ABDOMEN: Soft, nontender, nondistended, normal active bowel sounds. EXTREMITIES: Normal range of motion. No edema. SKIN: Warm, dry, no rash. NEURO: No focal deficits. Alert and oriented x3. PSYCH: Normal mood and affect. Course Course Emergency Course: informed patient about his lab work, CT findings will admit to the hospital for IV antibiotics and hydration . Vital Signs Vital signs: Vital Signs Temperature 37.7 C H 12/14/24 16:44 Pulse Rate 81 12/14/24 16:44 Respiratory Rate 22 H 12/14/24 16:44 Blood Pressure 129/74 12/14/24 16:44 Pulse Oximetry 97 12/14/24 16:44 Oxygen Delivery Room Air 12/14/24 16:44 Temperature 37.7 C H 12/14/24 16:44 Pulse Rate 81 12/14/24 16:44 Respiratory Rate 22 H 12/14/24 16:44 Blood Pressure 129/74 12/14/24 16:44 Pulse Oximetry 97 12/14/24 16:44 Oxygen Delivery Room Air 12/14/24 16:44 Medical Decision Making Differential Diagnosis Differential Diagnosis: Viral syndrome, heat exhaustion, diverticulitis, UTI Medical Records Medical records reviewed: Yes I reviewed the external patient's medical records. Vital Signs Vital Signs: Vital Signs Temperature 37.7 C H 12/14/24 16:44 Pulse Rate 81 12/14/24 16:44 Respiratory Rate 22 H 12/14/24 16:44 Blood Pressure 129/74 12/14/24 16:44 Pulse Oximetry 97 12/14/24 16:44 Oxygen Delivery Room Air 12/14/24 16:44 Temperature 37.7 C H 12/14/24 16:44 Pulse Rate 81 12/14/24 16:44 Respiratory Rate 22 H 12/14/24 16:44 Blood Pressure 129/74 12/14/24 16:44 Pulse Oximetry 97 12/14/24 16:44 Oxygen Delivery Room Air 12/14/24 16:44 Lab Data Lab results reviewed: Yes I reviewed the patient's lab results. 12/14/24 17:09 12/14/24 17:09 Labs: Lab Results 12/14/24 12/14/24 Range/Units 16:59 17:09 WBC 27.0 H (4.8-10.8) K/mm3 RBC 4.27 L (4.70-6.10) M/mm3 Hgb 12.6 (12.4-15.3) g/dL Hct 37.6 (37.0-46.0) % MCV 88.1 (78.0-102.0) fL MCH 29.5 (27.0-31.0) pg MCHC 33.5 (32-36) g/dL RDW 12.8 (11.6-14.4) % Plt Count 171 (150-420) K/mm3 MPV 10.9 (8.7-11.0) fl Immature Gran % (Auto) Not Reportable Neut % (Auto) Not Reportable Lymph % (Auto) Not Reportable [place] % (Auto) Not Reportable Eos % (Auto) Not Reportable Baso % (Auto) Not Reportable Lymph # (Auto) Not Reportable [place] # (Auto) Not Reportable Eos # (Auto) Not Reportable Baso # (Auto) Not Reportable Abs Immat Gran (auto) Not Reportable Absolute Neuts (auto) Not Reportable Absolute Nucleated RBC Not Reportable Total Counted 100 Neutrophils % (Manual) 80 H (46-73) % Band Neutrophils % 0 (0-6) % Lymphocytes % (Manual) 12 L (18-44) % Monocytes % (Manual) 8 (3-9) % Nucleated RBC % Not Reportable Abs Neuts (Manual) 21.60 H (1.3-6.7) K/mm3 Abs Lymphs (Manual) 3.24 (1.1-4.5) K/mm3 Abs Monocytes (Manual) 2.16 H (0.1-0.90) K/mm3 Platelet Estimate Adequate (Adequate) Schistocytes None seen Sodium 135 L (137-145) mmol/L Potassium 4.3 (3.4-5.0) mmol/L Chloride 108 H (98-107) mmol/L Carbon Dioxide 20 L (22-30) mmol/L Anion Gap 7 (4-12) mmol/L BUN 27 H (9-20) mg/dL Creatinine 1.79 H (0.7-1.3) mg/dL Estim Creat Clear Calc 42 ml/min Estimated GFR 38 L (59 - ) Glucose 106 (65-110) mg/dL Calculated Osmolality 285 (285-295) mOsm/kg Lactic Acid 1.2 (0.4-2.0) mmol/L Calcium 9.2 (8.4-10.2) mg/dL Total Bilirubin 1.7 H (0.2-1.3) mg/dL AST 22 (17-59) U/L ALT 21 (6-50) U/L Alkaline Phosphatase 104 (38-126) U/L Total Protein 7.7 (6.3-8.2) g/dL Albumin 4.0 (3.5-5.1) g/dL Urine Color Ellie A (Yellow) Urine Appearance Cloudy A (Clear) Urine pH 6.0 (5.0-8.0) Ur Specific [place] 1.020 (1.010-1.020) Urine Protein 2+ H (Negative) Urine Glucose (UA) Negative (Negative) Urine Ketones Trace H (Negative) Ur Blood (Man) 2+ H (Negative) Urine Nitrate Positive H (Negative) Urine Bilirubin 1+ H (Negative) Urine Urobilinogen 0.2 (0.2-1.0) mg/dL Leukocyte Esterase Rfl 3+ H (Negative) YONI/UL Urine RBC 6-10 H (0-2) /hpf Urine WBC 51-75 H (0-3) /hpf Ur Squamous Epith Cells Few (Few) /hpf Urine Bacteria 1+ H (None) /hpf Urine Mucus Present /lpf Influenza A (RT-PCR) Negative (Negative) Influenza B (RT-PCR) Negative (Negative) RSV (RT-PCR) Negative (Negative) SARS-CoV-2 RNA (RT-PCR) Negative (Negative) Imaging Data Radiologist's impression: ITS Impressions Abdomen/Pelvis CT 12/14/24 18:27 IMPRESSION: Findings consistent with cystitis, as detailed above. Hepatomegaly. 2 cm focus of fluid attenuation within the head of the pancreas for which nonemergent abdominal MRI/MRCP may be performed for further evaluation. ECG Data EKG #1: ECG completion date: 12/14/24 ECG completion time: 16:45 EKG Interpretation: normal rate (80), no ectopy, normal QRS, normal QT and NL axis Discharge Plan Discharge Clinical Impression: SIRS (systemic inflammatory response syndrome), Acute UTI Patient Disposition: Still a Patient Condition: Stable Patient Language: Surinamese Prescriptions: No Action trazodone 150 mg tablet 150 mg PO QHS PRN (Reason: insomnia) Qty: 30 0RF Centrum Silver Men [id number] mcg tablet 1 tablet PO DAILY metoprolol succinate 100 mg tablet extended release 24 hr See Rx Instructions .ROUTE .COMPLEX Qty: 90 3RF Dose Instruction: TAKE ONE TABLET BY MOUTH DAILY Rx Instructions: TAKE ONE TABLET BY MOUTH QAM amlodipine 10 mg tablet See Rx Instructions .ROUTE .COMPLEX Qty: 90 3RF Dose Instruction: TAKE ONE TABLET BY MOUTH EVERY MORNING Rx Instructions: TAKE ONE TABLET BY MOUTH EVERY MORNING spironolactone 50 mg tablet 50 mg PO DAILY Qty: 30 0RF Rx Instructions: Ordered by Cardio hydrocodone-acetaminophen 7.5-325 mg tablet 1 tablet PO Q4H PRN (Reason: pain) Qty: 40 0RF hydralazine 50 mg tablet 50 mg PO TID Qty: 270 0RF lisinopril 20 mg tablet 20 mg PO DAILY Qty: 90 0RF gabapentin 300 mg capsule 300 mg PO BID Qty: 60 0RF Follow-up/Referrals: Don Jones DO [Primary Care Provider] - Time of Disposition: 18:53
[2024-12-14] MEDS: cefTRIAXone 2 GM in SODIUM CHLORIDE 0.9% IV 100 ML 200 ML IVPB (18:49)
--- NOTE | 2024-12-14 18:55 | PC.NURSE ---
REPORT RECEIVED FROM NIELS BELTRAN. PATIENT IS RESTING ON STRETCHER. CALL LIGHT IN REACH.
--- NOTE | 2024-12-14 19:01 | PC.NURSE ---
LAB AT THE BEDSIDE DRAWING BLOOD CULTURES
--- NOTE | 2024-12-14 19:03 | PC.NURSE ---
Bed request made to 2nd floor charge attendant. Pt is assigned to room 203.
[2024-12-14 19:51] VITALS: BMI 31.3
[2024-12-14 20:00] VITALS: BP 122/72; PULSE 82; RESP 18; TEMP 36.7; O2SAT 96
[2024-12-14] MEDS: SODIUM CHLORIDE 0.9% IV 1,000 ML 125 ML IV CONT (20:08)
--- NOTE | 2024-12-14 20:18 | ADMGEN ---
This patient, Franklyn Mccormack, was admitted to 2nd Floor Room 203-1. Patient/family oriented to hospital policies and general routines including ID bracelet, bed and alarms, visiting hours, pain management, procedures, bathroom and other care routines, personal items, smoking policy, room service/diet, and visiting hours. Information on how to activate the Rapid Response Team has been discussed. Patient/Family are encouraged to report perceived risks to care and to ask questions if they do not understand what they are told or what they should do.
[2024-12-14] MEDS: ONDANSETRON INJ 4 MG/2 ML VIAL IV PUSH (22:47)
[2024-12-14 23:42] VITALS: BP 131/76; PULSE 85; RESP 16; TEMP 36.9; O2SAT 97
[2024-12-15] MEDS: SODIUM CHLORIDE 0.9% IV 1,000 ML 125 ML IV CONT ×3 (04:03→20:41)
[2024-12-15] MEDS: ONDANSETRON INJ 4 MG/2 ML VIAL IV PUSH (04:11)
[2024-12-15 05:31] LABS: Hematocrit 33.5 % (37.0-46.0); Hemoglobin 11.0 g/dL (12.4-15.3); Mean Corpuscular HGB Conc 32.8 g/dL (32-36); Mean Corpuscular Hemoglobin 30.0 pg (27.0-31.0); Mean Corpuscular Volume 91.3 fL (78.0-102.0); Platelet Count Result 140 K/mm3 (150-420); Red Blood Count 3.67 M/mm3 (4.70-6.10); White Blood Count 23.7 K/mm3 (4.8-10.8)
[2024-12-15 05:43] LABS: Band Neutrophils Percent 1 % (0-6); Hypochromasia 2+; Lymphocytes Absolute Manual 0.94 K/mm3 (1.1-4.5); Lymphocytes Percent Manual 4 % (18-44); Monocytes Absolute Manual 1.65 K/mm3 (0.1-0.90); Monocytes Percent Manual 7 % (3-9); Neutrophils Absolute Manual 21.09 K/mm3 (1.3-6.7); Neutrophils Percent Manual 88 % (46-73); Schistocytes None Seen; Total Cells Counted 100
[2024-12-15 05:44] LABS: Anisocytosis 1+
[2024-12-15 05:45] LABS: Anion Gap 6 mmol/L (4-12); Blood Urea Nitrogen 25 mg/dL (9-20); Calcium 8.1 mg/dL (8.4-10.2); Carbon Dioxide 21 mmol/L (22-30); Chloride 110 mmol/L (98-107); Estimated CRCL calculation 46 ml/min; Estimated Glomerular Filt Rate 42; Glucose 109 mg/dL (65-110); Osmolality Calculated 289 mOsm/kg (285-295); Potassium 4.1 mmol/L (3.4-5.0); Sodium 137 mmol/L (137-145)
[2024-12-15 08:00] VITALS: BP 119/71; PULSE 73; RESP 17; TEMP 37.3; O2SAT 93
[2024-12-15 10:20] VITALS: PULSE 73
[2024-12-15] MEDS: SPIRONOLACTONE 25 MG TABLET 50 MG PO (10:20)
[2024-12-15] MEDS: METOPROLOL SUCCINATE EXT REL 50 MG TABCR 100 MG PO (10:20)
[2024-12-15] MEDS: OPTI-GEN TAB 1 TABLET PO (10:20)
--- NOTE | 2024-12-15 10:35 | PM.IMHP ---
H&P: HPI History of Present Illness Date/Time: 12/15/24 10:35 Chief Complaint: Constipation Narrative: This is a 64 year old male that has been admitted to the hosptial due to constipation He has complaints of not feeling well for past 1 week. Patient states that he has not had a bowel movement for past 3-4 days. Denies having any nausea or vomiting. No history of fever or chills. However he complains of dysuria. He also mentioned that he had a knee replacement a month ago. Review of Systems Review of Systems: constipation All systems reviewed & are unremarkable except as noted in HPI and below Constitutional: Constitutional: Reports no additional constitutional complaints Eyes: Eyes: Reports no additional eye complaints ENT: Reports system reviewed and no additional complaints, except as documented Cardiovascular: Cardiovascular: Reports no additional cardiovascular complaints Respiratory: Respiratory: Reports as per HPI Gastrointestinal: Gastrointestinal: Reports no additional gastrointestinal complaints Genitourinary: Genitourinary: Reports as per HPI Musculoskeletal: Musculoskeletal: Reports no additional musculoskeletal complaints [facility] Past Medical History Medical History Anxiety MDD (major depressive disorder) Kidney stones BPH (benign prostatic hyperplasia) ESTHER (generalized anxiety disorder) HLD (hyperlipidemia) HTN (hypertension) Surgical History Surgical History History of total knee arthroplasty Right, 08/25/2024 History of arthroscopy of right knee 06/19/23, meniscus repair History of cholecystectomy Family History Family History Father Leukemia Mother Neuropathy Hypotension Social History Social History Smoking packs per day: 0.2 Smoking cigarettes per day: 4.0 Years smoked: 3 Smoking pack-years: 0.60 Smoking status: Never smoker Tobacco type: cigarettes Second hand tobacco smoke exposure: No Smoking end date: 11/24/79 Additional smoking assessment comments: DENIES ANY FORM OF TOBACCO USE Alcohol intake: never Drinks per week: 1 Substance use: never Substance use type: does not use Do You Feel Safe in your Home?: Yes Lack of Transportation: No Lack of Food: Never True Current Housing: I Have Housing Concerned About Future Housing: No Difficulty Paying Gas/Electric Bills: No Difficulty Paying for Meds: No Currently Unemployed: No Education: High School Diploma/GED Difficulty w/ Childcare or Family Care: No Living arrangements: alone Occupation/Education: occupation Additional occupation/education comments: [employer]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 Gender identity (if verbalized by the patient): Male Spiritual care concerns: No Meds Home Medications and Allergies Home Medications ?Medication ?Instructions ?Recorded ?Confirmed ?Type amlodipine 10 mg tablet See Rx Instructions .Route 04/13/24 12/23/24 Rx .COMPLEX #90 tabs metoprolol succinate 100 mg See Rx Instructions .Route 04/13/24 12/23/24 Rx tablet,extended release 24 hr .COMPLEX #90 tabs spironolactone 50 mg tablet 50 mg PO DAILY #30 tabs 08/02/24 12/23/24 Rx [id number]-mb-pzbby 300 mcg-K 60 1 tablet PO DAILY 08/16/24 12/23/24 History mcg-lycop 600 mcg-lutein 300 mcg tablet (Centrum Silver Men) hydrocodone 7.5 mg-acetaminophen 1 tablet PO Q4H PRN pain #40 tabs 09/07/24 12/23/24 Rx 325 mg tablet hydralazine 50 mg tablet 50 mg PO TID #270 tabs 11/02/24 12/23/24 Rx lisinopril 20 mg tablet 20 mg PO DAILY #90 tabs 11/02/24 12/23/24 Rx trazodone 150 mg tablet 150 mg PO QHS PRN insomnia #30 tabs 12/08/24 12/23/24 Rx Allergies Allergy/AdvReac Type Severity Reaction Status Date / Time No Known Allergies Allergy Verified 12/23/24 10:02 Vital Signs Vital Signs - 24 hr 12/14/24 16:44 12/14/24 16:44 12/14/24 20:00 Temperature 99.9 F H 98.0 F Pulse Rate 81 82 Respiratory Rate 22 H 18 Blood Pressure 129/74 122/72 Pulse Oximetry 97 96 Oxygen Delivery Room Air Room Air Room Air 12/14/24 23:42 12/15/24 10:20 Temperature 98.4 F Pulse Rate 85 73 Respiratory Rate 16 Blood Pressure 131/76 Pulse Oximetry 97 Oxygen Delivery Room Air Exam Narrative: GENERAL: Well-appearing, well-nourished, and in no acute distress. HEAD: Normocephalic, atraumatic. EYES: PERRLA and EOMI. ENT: Nares clear, no rhinorrhea or epistaxis. Mucous membranes moist. NECK: Supple. CHEST: Clear to auscultation. No respiratory distress. HEART: Regular rate and rhythm. No murmur heard. Normal peripheral pulses. ABDOMEN: Soft, nontender, nondistended, normal active bowel sounds. EXTREMITIES: Normal range of motion. No edema. SKIN: Warm, dry, no rash. NEURO: No focal deficits. Alert and oriented x3. PSYCH: Normal mood and affect. H&P: Results Labs Labs: Short CBC 12/14/24 12/15/24 Range/Units 17:09 05:07 WBC 27.0 H 23.7 H (4.8-10.8) K/mm3 Hgb 12.6 11.0 L (12.4-15.3) g/dL Hct 37.6 33.5 L (37.0-46.0) % Plt Count 171 140 L (150-420) K/mm3 BMP 12/14/24 12/15/24 17:09 05:07 Sodium 135 L 137 Potassium 4.3 4.1 Chloride 108 H 110 H Carbon Dioxide 20 L 21 L BUN 27 H 25 H Creatinine 1.79 H 1.65 H Glucose 106 109 Calcium 9.2 8.1 L Liver Function 12/14/24 Range/Units 17:09 Total Bilirubin 1.7 H (0.2-1.3) mg/dL AST 22 (17-59) U/L ALT 21 (6-50) U/L Alkaline Phosphatase 104 (38-126) U/L Albumin 4.0 (3.5-5.1) g/dL Urine 12/14/24 Range/Units 16:59 Urine Color Ellie A (Yellow) Urine Appearance Cloudy A (Clear) Urine pH 6.0 (5.0-8.0) Ur Specific Umpire 1.020 (1.010-1.020) Urine Protein 2+ H (Negative) Urine Glucose (UA) Negative (Negative) Assessment and Plan Assessment and plan (1) Acute UTI: Code(s): N39.0 - Urinary tract infection, site not specified Status: Acute Assessment and Plan: IV antibiotics IV fluids x1 liter (2) Atelectasis: Code(s): J98.11 - Atelectasis Status: Acute (3) SIRS (systemic inflammatory response syndrome): Code(s): R65.10 - Systemic inflammatory response syndrome (SIRS) of non-infectious origin without acute organ dysfunction Status: Acute (4) HTN (hypertension): Qualifiers: Hypertension type: primary hypertension Qualified Code(s): I10 - Essential (primary) hypertension Code(s): I10 - Essential (primary) hypertension Status: Chronic Assessment and Plan: continue home medicatin (5) Acute kidney injury superimposed on CKD: Code(s): N17.9 - Acute kidney failure, unspecified; N18.9 - Chronic kidney disease, unspecified Status: Acute
[2024-12-15] MEDS: cefTRIAXone 1 GM in SODIUM CHLORIDE 0.9% IV 50 ML 100 ML IVPB (11:59)
[2024-12-15 16:00] VITALS: BP 108/64; PULSE 70; RESP 18; TEMP 37.4; O2SAT 92
[2024-12-15 23:50] VITALS: BP 123/70; PULSE 74; RESP 18; TEMP 37.3; O2SAT 92
[2024-12-16] MEDS: ONDANSETRON INJ 4 MG/2 ML VIAL IV PUSH (00:10)
[2024-12-16] MEDS: SODIUM CHLORIDE 0.9% IV 1,000 ML 125 ML IV CONT (04:28)
[2024-12-16 07:47] VITALS: BP 143/74; PULSE 91; RESP 18; TEMP 37.2; O2SAT 93
[2024-12-16 08:31] VITALS: PULSE 91
[2024-12-16] MEDS: METOPROLOL SUCCINATE EXT REL 50 MG TABCR 100 MG PO (08:31)
[2024-12-16] MEDS: SPIRONOLACTONE 25 MG TABLET 50 MG PO (08:31)
[2024-12-16] MEDS: OPTI-GEN TAB 1 TABLET PO (08:32)
[2024-12-16 10:17] LABS: Hematocrit 33.1 % (37.0-46.0); Hemoglobin 11.1 g/dL (12.4-15.3); Immature Platelet Fraction Pct 2.5 % (1.0-7.0); Mean Corpuscular HGB Conc 33.5 g/dL (32-36); Mean Corpuscular Hemoglobin 30.0 pg (27.0-31.0); Mean Corpuscular Volume 89.5 fL (78.0-102.0); Platelet Count Result 127 K/mm3 (150-420); Red Blood Count 3.70 M/mm3 (4.70-6.10); White Blood Count 9.0 K/mm3 (4.8-10.8)
--- NOTE | 2024-12-16 10:37 | PC.NURSE ---
Patient called nurse to bathroom in patient's room. Nurse discovered patient sitting on the toilet with his urine soaked gown draped over patient's IV site applying tension to the IV line. Patient's IV was partially dislodged from his arm and leaking blood and fluids on the floor. Patient stated that he needed help here. Medical Coding Manager asked what happened and patient explained that he had urinated all over himself. Medical Coding Manager asked if he had urinated other places and patient stated that he had urinated on the bed. Medical Coding Manager assessed room and noted that bed was soaked and there was also a puddle of urine at the foot of the bed. When continuity writer asked patient why, patient told continuity writer that lab was there to draw blood, and he had told lab that he had to use the bathroom. Lab offered to come back, but patient stated that he was anxious to get his blood drawn so that he can be discharged. Patient sat through the blood draw and urinated in his pants instead of using the bathroom. There was also a urinal present next to patient. Medical Coding Manager changed bed linens, cleansed IV site and changed Tegaderm, and restarted the IV fluids. Medical Coding Manager told patient that his behavior did not show good judgement, as the IV site is directly in patient's blood stream and that taking a moment to use the restroom will not make any difference in the timing of patient's discharge. Patient apologized for urinating all over the bed and floor and agreed that hanging a urine soaked gown around his IV was not sensible.
[2024-12-16 10:39] LABS: Alanine Aminotransferase 17 U/L (6-50); Albumin Level 3.1 g/dL (3.5-5.1); Alkaline Phosphatase 79 U/L (38-126); Anion Gap 7 mmol/L (4-12); Aspartate Amino Transferase 21 U/L (17-59); Bilirubin,Total 0.5 mg/dL (0.2-1.3); Blood Urea Nitrogen 16 mg/dL (9-20); CRP 8.7 mg/dL (<1.0); Calcium 8.1 mg/dL (8.4-10.2); Carbon Dioxide 20 mmol/L (22-30); Chloride 108 mmol/L (98-107); Estimated CRCL calculation 55 ml/min; Estimated Glomerular Filt Rate 52; Glucose 126 mg/dL (65-110); Magnesium 1.7 mg/dL (1.6-2.3); Osmolality Calculated 283 mOsm/kg (285-295); Potassium 4.1 mmol/L (3.4-5.0); Sodium 135 mmol/L (137-145); Total Protein 6.1 g/dL (6.3-8.2)
[2024-12-16 10:52] LABS: Procalcitonin 0.5 ng/mL
[2024-12-16 10:56] LABS: Band Neutrophils Percent 1 % (0-6); Basophils Absolute Manual 0.00 K/mm3 (0-0.1); Basophils Percent Manual 0 % (0-1); Eosinophils Absolute Manual 0.00 K/mm3 (0.02-0.50); Eosinophils Percent Manual 0 % (1-6); Lymphocytes Absolute Manual 0.99 K/mm3 (1.1-4.5); Lymphocytes Percent Manual 11 % (18-44); Metamyelocytes Percent 1 %; Monocytes Absolute Manual 0.81 K/mm3 (0.1-0.90); Monocytes Percent Manual 9 % (3-9); Myelocytes Percent 1 %; Neutrophils Absolute Manual 7.02 K/mm3 (1.3-6.7); Neutrophils Percent Manual 77 % (46-73); Total Cells Counted 100
[2024-12-16] MEDS: cefTRIAXone 2 GM in SODIUM CHLORIDE 0.9% IV 100 ML 200 ML IVPB (12:33)
--- NOTE | 2024-12-16 12:57 | PM.DS ---
DS: Admitting Diagnosis Discharge Date 12/16/2024 Admitting Diagnosis UTI DS: Discharge Diagnosis Discharge Diagnosis (1) Acute UTI: Code(s): N39.0 - Urinary tract infection, site not specified Status: Acute (2) Atelectasis: Code(s): J98.11 - Atelectasis Status: Acute (3) SIRS (systemic inflammatory response syndrome): Code(s): R65.10 - Systemic inflammatory response syndrome (SIRS) of non-infectious origin without acute organ dysfunction Status: Acute (4) HTN (hypertension): Qualifiers: Hypertension type: primary hypertension Qualified Code(s): I10 - Essential (primary) hypertension Code(s): I10 - Essential (primary) hypertension Status: Chronic (5) Acute kidney injury superimposed on CKD: Code(s): N17.9 - Acute kidney failure, unspecified; N18.9 - Chronic kidney disease, unspecified Status: Acute DS: Summary Hospital Course Reason for hospitalization: UTI Hospital Course: This is 64 year old male admitted to hospital for UTI with elevated WBC of 27. Nitrate positive UA and patient had systemic symptoms of weakness as well as urgency, frequency and dysuria. No prior urine cultures on file. Patient received 3 days of IV Rocephin and was feeling better today. Patient requesting discharge and prescriptions to go to [facility] in [place]. He notes resolution of constipation. Still having urgency and frequency but no longer having dysuria, weakness or other systemic symptoms. FLAKO improving with IV fluids and appears to be back at CKD baseline. Discussed pending cultures and return precautions. Placed patient on Augmentin and azithromycin (CXR with atelectasis vs developing pneumonia.) Patient instructed to deep breathe and cough but he denies any respiratory symptoms right now. Status at Discharge Cognitive/behavioral status at discharge: awake, alert, oriented Functional status at discharge: independent ambulation Overall status at discharge: patient is progressing back to baseline Time Spent with Patient Time attestation: Total time spent providing and/or coordinating discharge services: 90 minutes Time spent: Greater than 30 minutes Specific discharge activities: ordering labs and imaging, interpreting CXR and labs, chart review, exam, discharge planning Exam Narrative: GENERAL: Well-appearing, well-nourished, and in no acute distress. HEAD: Normocephalic, atraumatic. EYES: PERRLA and EOMI. ENT: Nares clear, no rhinorrhea or epistaxis. Mucous membranes moist. NECK: Supple. CHEST: Clear to auscultation. No respiratory distress. HEART: Regular rate and rhythm. No murmur heard. Normal peripheral pulses. ABDOMEN: Soft, nontender, nondistended, normal active bowel sounds. EXTREMITIES: Normal range of motion. No edema. SKIN: Warm, dry, no rash. NEURO: No focal deficits. Alert and oriented x3. PSYCH: Normal mood and affect. DS: Data Data Completed and Pending Labs on day of discharge: Labs from last 24 hours 12/16/24 10:07 WBC 9.0 RBC 3.70 L Hgb 11.1 L Hct 33.1 L MCV 89.5 MCH 30.0 MCHC 33.5 RDW 12.6 Plt Count 127 L MPV 10.8 Immature Gran % (Auto) Not Reportable Neut % (Auto) Not Reportable Lymph % (Auto) Not Reportable [place] % (Auto) Not Reportable Eos % (Auto) Not Reportable Baso % (Auto) Not Reportable Lymph # (Auto) Not Reportable [place] # (Auto) Not Reportable Eos # (Auto) Not Reportable Baso # (Auto) Not Reportable Abs Immat Gran (auto) Not Reportable Absolute Neuts (auto) Not Reportable Absolute Nucleated RBC Not Reportable Total Counted 100 Neutrophils % (Manual) 77 H Band Neutrophils % 1 Lymphocytes % (Manual) 11 L Monocytes % (Manual) 9 Eosinophils % (Manual) 0 L Basophils % (Manual) 0 Metamyelocytes % 1 Myelocytes % 1 Nucleated RBC % Not Reportable Abs Neuts (Manual) 7.02 H Abs Lymphs (Manual) 0.99 L Abs Monocytes (Manual) 0.81 Absolute Eos (Manual) 0.00 L Abs Basophils (Manual) 0.00 Platelet Estimate Slightly decreased % Immature Plt Fraction 2.5 Schistocytes Not Reportable ESR 38 H Sodium 135 L Potassium 4.1 Chloride 108 H Carbon Dioxide 20 L Anion Gap 7 BUN 16 Creatinine 1.36 H Estim Creat Clear Calc 55 Estimated GFR 52 L Glucose 126 H Calculated Osmolality 283 L Lactic Acid 1.0 Calcium 8.1 L Magnesium 1.7 Total Bilirubin 0.5 AST 21 ALT 17 Alkaline Phosphatase 79 C-Reactive Protein 8.7 H Total Protein 6.1 L Albumin 3.1 L Procalcitonin 0.5 Imaging My impression: No large consolidative pneumonia Radiologist's impression: XR chest 2V 12/16/2024 10:54 Indication: Shortness of breath. Leukocytosis. Procedure: PA and lateral views the chest Comparison: No prior studies for comparison. Findings: There are subtle bibasilar infiltrates which may represent atelectasis or developing pneumonia. No significant effusion. No pneumothorax. Borderline heart size. No acute osseous abnormality. Impression: 1: Bibasilar infiltrates may represent atelectasis or developing pneumonia. Reviewed, dictated and finalized at location A. Discharge Plan Discharge Attending physician on discharge: Neil Greene Discharging Clinician: Sean Roberts Anticipated Discharge Date/Time: 12/16/24 13:03 Patient Disposition: Home Activity: as tolerated Diet: as tolerated Discharge Instructions: Antibiotics as prescribed for urine infection and possible developing pneumonia. Patient Instructions: Antibiotic Form, Amoxicillin/Clavulanate Potassium (By mouth), Azithromycin (By mouth), Urinary Tract Infection in Men (DC), Fall Prevention for Older Adults (DC), Community Acquired Pneumonia (DC), Bacteremia (DC) Patient Language: Malay Stand Alone Forms: General Discharge Information Follow-up/Referrals: Don Jones DO [Primary Care Provider] - 12/23/24 10:15 am Discharge Medications: New amoxicillin-pot clavulanate 875-125 mg tablet 1 tablet PO Q12H Qty: 10 0RF azithromycin 250 mg tablet See Rx Instructions .ROUTE .COMPLEX Qty: 6 0RF Rx Instructions: For 250 mg dose pack: take 500 mg today (day 1), then 250 mg for 4 days (days 2-5) Continued trazodone 150 mg tablet 150 mg PO QHS PRN (Reason: insomnia) Qty: 30 0RF Centrum Silver Men [id number] mcg tablet 1 tablet PO DAILY metoprolol succinate 100 mg tablet extended release 24 hr See Rx Instructions .ROUTE .COMPLEX Qty: 90 3RF Dose Instruction: TAKE ONE TABLET BY MOUTH DAILY Rx Instructions: TAKE ONE TABLET BY MOUTH QAM amlodipine 10 mg tablet See Rx Instructions .ROUTE .COMPLEX Qty: 90 3RF Dose Instruction: TAKE ONE TABLET BY MOUTH EVERY MORNING Rx Instructions: TAKE ONE TABLET BY MOUTH EVERY MORNING spironolactone 50 mg tablet 50 mg PO DAILY Qty: 30 0RF Rx Instructions: Ordered by Cardio hydrocodone-acetaminophen 7.5-325 mg tablet 1 tablet PO Q4H PRN (Reason: pain) Qty: 40 0RF hydralazine 50 mg tablet 50 mg PO TID Qty: 270 0RF lisinopril 20 mg tablet 20 mg PO DAILY Qty: 90 0RF Date of admission: 12/14/24 18:54 Primary Care Provider: Don Jones Admitting Provider: Neil Greene Attending physician on admission: Neil Greene Condition: Stable Quality If No VTE Prophylaxis Answer both mechanical and pharmacologic: Reason no mechanical VTE proph: patient/caregiver refusal Reason no pharmacologic proph: patient/caregiver refusal Hospitalist MIPS Heart Failure (Exclusion) Patient has history of Heart Transplant or Left Ventricular Assistive Device?: No IF YES, STOP HERE Heart Failure (Qualifier) Patient has current or prior documentation of LVEF less than or equal to 40%, or mod/servere depressed LVSF?: No IF NO, STOP HERE
--- NOTE | 2024-12-16 14:50 | PC.NURSE ---
IV site discontinued prior to discharge. Discharge instructions given to patient and patient voiced understanding. Personal items gathered by patient and went home with patient. Patient left unit in w/c accompanied by nurse. Patient left hospital grounds in privately owned vehicle.
--- NOTE | 2024-12-17 10:32 | PC.NURSE ---
Discharge call back made, VM available but there is not a name attached. No message left.
--- NOTE | 2024-12-20 10:57 | PC.NURSE ---
discharge call back made, unable to leave r/t no ID on .
== END 2024-12-16 14:50 | disposition home or self-care (01) ==
LOC: CHSED 19:05 → CHS2ND 19:14
PROVIDERS: Family Medicine; Nurse Practitioner; Admitting Provider Internal Medicine; Emergency Provider Family Medicine; PCP Family Medicine; Visit Provider Internal Medicine
DX: N39.0 Urinary tract infection, site not specified (principal); J98.11 Atelectasis; I12.9 Hypertensive chronic kidney disease with stage 1 through stage 4 chronic kidney disease, or unspecified chronic kidney disease; N18.9 Chronic kidney disease, unspecified; N17.9 Acute kidney failure, unspecified; F32.9 Major depressive disorder, single episode, unspecified; F41.1 Generalized anxiety disorder; E78.5 Hyperlipidemia, unspecified; K59.00 Constipation, unspecified; Z20.822 Contact with and (suspected) exposure to COVID-19; Z79.899 Other long term (current) drug therapy; Z96.651 Presence of right artificial knee joint
CPT/HCPCS: 36415; 71046; 74177; 80048; 80053; 81001; 83605; 83735; 84145; 85025; 85055; 85652; 86140; 87040; 87086; 87637; 93005; 96361; 96365; 96375; 97161; 99285; A9270; G0378; J0696; J2405; J7030; Q9967

== ENCOUNTER 2024-12-30 18:28 | Outpatient (RCR) | payer OTHER, MEDICAID, SELFPAY ==
--- NOTE | 2024-12-30 14:44 | OPREHPOC ---
Outpatient Therapy Plan of Care This is a Multidisciplinary Plan of Care that may contain components documented by all disciplines (PT, OT, and ST.) PT Problem 1 PT Problem #1 Knowledge Deficit PT Goal 1 Goal / Goal Update Independent and compliant with HEP Target Visit 6 Progress Met PT Goal 2 Goal / Goal Update continue PT Problem 2 PT Problem #2 Pain PT Goal 1 Goal / Goal Update Pt to report no more than 2/10 pain at rest. Pt to report no more than 5/10 pain with activity. Target Visit 26 Progress Not Met PT Problem 3 PT Problem #3 Impaired Strength PT Goal 1 Goal / Goal Update Pt to improve gross LE strength to 5/5. ( hip flexion and abd is still not 5/5) Target Visit 26 Progress Not Met PT Problem 4 PT Problem #4 Impaired Range of Motion PT Goal 1 Goal / Goal Update Pt to improve R knee AROM to 0-130. Improve swelling to 43cm for improved knee joint mobility. - met was 41cm Target Visit 26 Progress Partially Met PT Problem 5 PT Problem #5 Impaired Functional Mobility PT Goal 1 Goal / Goal Update Pt to note 30% improvement on LEFS. met Target Visit 26 Progress Met
--- NOTE | 2024-12-30 14:44 | PTOPDC ---
Assessment and note entered by JT File, PT Evaluation Information Assessment Status Discharge Diagnosis R TKA ICD-10 Condition Codes (PT) Aftercare following joint replacement surgery Z47. 1 Onset 08/25/24 Subjective Information patient reports he still struggles with rom of the R knee. he reports he is compliant with his HEP at home, and pushes to improve his knee extension. he reports he would like to follow up infrequently just to have his ROM measured. Reported Pain Level Pain Score 3: Self Report Assessment PT Clinical Summary mr. wilde presents to skilled PT today for his 26th skilled PT visit. he presents today with continued deficits in R knee active extension rom, and ambulation mechanics. he has been sore in the R knee since surgery. he reports he is also a bit sore from his last therapy visit. he has reached the max visits per his insurance today. he will DC skilled PT today and continue with HEP independent at home. Plan of Care PT Services Indicated Yes
== END 2024-12-30 18:38 | disposition home or self-care (01) ==
LOC: CHSPT 18:28
PROVIDERS: Visit Provider Orthopaedic Surgery
DX: Z47.1 Aftercare following joint replacement surgery (principal); Z96.651 Presence of right artificial knee joint
CPT/HCPCS: 97110; 97140; 97530